=== PATIENT | female | born 1955 | race Caucasian/White ===

== ENCOUNTER → 2018-10-22 08:34 | Outpatient (CLI) | payer OTHER, SELFPAY ==
[2018-10-22 08:58] LABS: Appearance Urine UA CLEAR; Bilirubin Urine UA NEGATIVE (NEGATIVE); Color Urine UA YELLOW; Glucose Urine UA NEGATIVE (Negative); Ketones Urine UA NEGATIVE (NEGATIVE); Leukocyte Esterase Urine UA NEGATIVE (NEGATIVE); Nitrite Urine UA NEGATIVE (Negative); Occult Blood Urine UA TRACE-LYSED (Negative); Protein Urine UA NEGATIVE (Negative); Urobilinogen Urine UA 0.2 E.U./dL (0.2)
[2018-10-22 09:27] LABS: Add Manual Diff / Slide Review NO; Basophils Absolute Auto 100 /uL (0-100); Basophils Percent Auto 0.9 % (0-2); Eosinophils Absolute Auto 100 /uL (0-450); Eosinophils Percent Auto 2.4 % (2-4); Hematocrit 44.9 % (36-46); Hemoglobin 15.2 g/dL (12.0-16.0); Lymphocytes Absolute Auto 2200 /uL (1100-4500); Lymphocytes Percent Auto 37.3 % (25-40); Mean Corpuscular Hemoglobin 30.6 PG (26-34); Mean Corpuscular Volume 90.2 fL (80-100); Monocytes Absolute Auto 500 /uL (0-900); Monocytes Percent Auto 9.2 % (3-14); Neutrophils Absolute Auto 2900 /uL (1500-7000); Neutrophils Percent Auto 50.2 % (50-75); Platelet Count 231 X10^3/uL (150-400); Red Blood Cell Count 4.97 X10^6/uL (4.0-5.2); Red Cell Distribution Width 13.5 % (11.6-14.8); White Blood Cell Count 5.8 X10^3/uL (4.5-11.0)
[2018-10-22 09:45] LABS: Alanine Aminotransferase 16 IU/L (9-52); Albumin 4.3 g/dL (3.5-5.0); Albumin Globulin Ratio 1.4 (1.0-2.8); Alkaline Phosphatase 66 U/L (38-126); Aspartate Aminotransferase 23 IU/L (14-36); Bilirubin Total 0.6 mg/dL (0.2-1.3); Blood Urea Nitrogen 16 mg/dL (7-17); Calcium 9.2 mg/dL (8.4-10.2); Carbon Dioxide 31 mmol/L (22-32); Chloride 102 mmol/L (98-107); Cholesterol 258 mg/dL (140-199); Estimated Glomerular Filt Rate > 60.0 mL/min (>60); Glucose 140 mg/dL (80-110); HDL Cholesterol 53 mg/dL (40-60); HEMOLYSIS < 15 (0-50); LDL Cholesterol Calculated 169 mg/dL (<100); Potassium 4.3 mmol/L (3.4-5.1); Sodium 140 mmol/L (137-145); Total Protein 7.3 g/dL (6.3-8.2); Triglycerides 182 mg/dL (35-150)
[2018-10-25 08:55] LABS: Hepatitis A Antibody IgM NONREACTIVE (NONREACTIVE); Hepatitis B Core Antibody IgM NONREACTIVE (NONREACTIVE); Hepatitis B Surface Antigen NONREACTIVE (NONREACTIVE); Hepatitis C Antibody NONREACTIVE
== END ==
PROVIDERS: Visit Provider Family Medicine
DX: I10 Essential (primary) hypertension (principal); R73.9 Hyperglycemia, unspecified; Z13.220 Encounter for screening for lipoid disorders; Z00.00 Encounter for general adult medical examination without abnormal findings; Z86.19 Personal history of other infectious and parasitic diseases
CPT/HCPCS: 36415; 80053; 80061; 80074; 81003; 85025

== ENCOUNTER → 2018-10-27 15:12 | Outpatient (CLI) | payer OTHER, SELFPAY ==
[2018-10-27 15:30] LABS: Hemoglobin A1C% w Est Avg Glu 6.6 % (4.0-6.0)
== END ==
PROVIDERS: Visit Provider Family Medicine
DX: R73.9 Hyperglycemia, unspecified (principal)
CPT/HCPCS: 83036

== ENCOUNTER → 2018-11-01 10:59 | Outpatient (CLI) | payer OTHER, SELFPAY | PROVIDERS: PCP Family Medicine; Visit Provider Family Medicine ==

== ENCOUNTER → 2018-11-12 12:48 | Outpatient (CLI) | payer OTHER, SELFPAY | PROVIDERS: PCP Family Medicine; Visit Provider Family Medicine | DX: Z00.00 Encounter for general adult medical examination without abnormal findings (principal); Z12.11 Encounter for screening for malignant neoplasm of colon | CPT/HCPCS: 82274 ==

== ENCOUNTER → 2019-01-22 09:45 | Outpatient (CLI) | payer OTHER, SELFPAY ==
[2019-01-22 10:18] LABS: Hemoglobin A1C% w Est Avg Glu 7.1 % (4.0-6.0)
[2019-01-22 10:27] LABS: Alanine Aminotransferase 23 IU/L (<35); Albumin 4.4 g/dL (3.5-5.0); Albumin Globulin Ratio 1.6 (1.0-2.8); Alkaline Phosphatase 62 U/L (38-126); Aspartate Aminotransferase 23 IU/L (14-36); BUN Creatinine Ratio 23.8 (6-22); Bilirubin Total 0.6 mg/dL (0.2-1.3); Blood Urea Nitrogen 19 mg/dL (7-17); Calcium 9.3 mg/dL (8.4-10.2); Carbon Dioxide 28 mmol/L (22-32); Chloride 102 mmol/L (98-107); Cholesterol 283 mg/dL (140-199); Estimated Glomerular Filt Rate > 60.0 mL/min (>60); Globulin 2.7 g/dL (1.7-4.1); Glucose 143 mg/dL (80-110); HDL Cholesterol 57 mg/dL (40-60); HEMOLYSIS < 15 (0-50); LDL Cholesterol Calculated 200 mg/dL (<100); Potassium 4.6 mmol/L (3.4-5.1); Sodium 139 mmol/L (137-145); Total Protein 7.1 g/dL (6.3-8.2); Triglycerides 130 mg/dL (35-150)
== END ==
PROVIDERS: PCP Family Medicine; Visit Provider Family Medicine
DX: Z00.00 Encounter for general adult medical examination without abnormal findings (principal); E11.9 Type 2 diabetes mellitus without complications; E78.5 Hyperlipidemia, unspecified
CPT/HCPCS: 36415; 80053; 80061; 83036

== ENCOUNTER → 2019-02-18 12:55 | Outpatient (CLI) | payer OTHER, SELFPAY ==
--- NOTE | 2019-02-18 | DI.MG.S_ITS ---
BILATERAL DIGITAL SCREENING MAMMOGRAM 3D/2D WITH CAD: 02/18/2019 CLINICAL: Routine screening. Family history of breast cancer. Comparison is made to exams dated: 06/29/2017 mammogram, 11/22/2014 mammogram, and 02/28/2011 mammogram - [facility]. The tissue of both breasts is heterogeneously dense. This may lower the sensitivity of mammography. Current study was also evaluated with a Computer Aided Detection (CAD) system. No significant masses, calcifications, or other findings are seen in either breast. There has been no significant interval change. IMPRESSION: NEGATIVE There is no mammographic evidence of malignancy. A 1 year screening mammogram is recommended. This exam was interpreted at Station ID: [id number]. NOTE: For mammograms, a report in lay terms will be sent to the patient. Approximately 15% of breast malignancies will not be visualized mammographically. In the management of a palpable breast mass, a negative mammogram must not discourage biopsy of a clinically suspicious lesion. Electronically Signed By: Keyon hughes/julieth:02/18/2019 16:23:09 letter sent: Normal Exam ACR BI-RADS Category 1: Negative 3341F
== END ==
PROVIDERS: PCP Family Medicine; Visit Provider Family Medicine
DX: Z12.31 Encounter for screening mammogram for malignant neoplasm of breast (principal); Z80.3 Family history of malignant neoplasm of breast
CPT/HCPCS: 77063; 77067

== ENCOUNTER → 2019-05-20 13:28 | Outpatient (CLI) | payer OTHER, SELFPAY ==
--- NOTE | 2019-05-20 14:44 | DIET.PN ---
Diabetes Intake: Initial Assessment Assess: Ms. Daly is a 63 YOF referred for type 2 diabetes. New dx in Oct 2018. Not monitoring. She recently moved to the area. Has not been as active as she used to be. Likes kayaking, hiking, walking, gardening. Reports high amounts of starch and fruit intake. She is partially lactose intolerant. Eats large amounts of fish, pork, welch, beef. Labs: Per pt report: A1c: 7.1 Meds: na Wt: 179 Ht: 63? BMI: 31.7 DX: Altered nutrition related laboratory values related to impaired glucose metabolism, lack of previous exposure to nutrition information as evidenced by pt report, diagnosis of diabetes, previous diet high in refined carbohydrates. Intervention: 1. Completed intake assessment. Discussed barriers to care. 2. Discussed pathophysiology of diabetes. Reviewed A1c and its correlation to blood glucose numbers. Discussed recommended BG ranges. 3. Discussed importance of self-monitoring, how often, and when to check. Provided demonstration on use of glucometer. 4. Reviewed hyper/hypoglycemia and treatment. 5. Reviewed safe disposal of equipment (strip/lancets/insulin needles). 6. Created SMART goals for pt self-care and success. 7. Discussed program curriculum outline and class needs based on individual goals. Monitor/Evaluate: Anticipate excellent compliance. Pt will attend full DSME program. Basic Nutrition class scheduled for May 26.
== END ==
PROVIDERS: PCP Family Medicine; Referring Provider Family Medicine; Visit Provider Family Medicine
DX: E11.69 Type 2 diabetes mellitus with other specified complication (principal); E78.5 Hyperlipidemia, unspecified; E66.9 Obesity, unspecified; Z68.31 Body mass index [BMI] 31.0-31.9, adult; Z71.3 Dietary counseling and surveillance
CPT/HCPCS: G0108

== ENCOUNTER → 2019-05-27 10:15 | Outpatient (CLI) | payer OTHER, SELFPAY ==
--- NOTE | 2019-05-27 14:57 | DIET.PN ---
Diabetes: Healthy Eating 2 Intervention: Fats effects on glucose, weight, heart disease, cholesterol Sat Vs Unsat Protein- animal and plant based options Low, med, high fat meats Sugar substitutes Sodium Health claims Grocery shopping guidelines Eating away from home Alcohol Sick day guidelines
== END ==
PROVIDERS: PCP Family Medicine; Referring Provider Family Medicine; Visit Provider Family Medicine
DX: E11.9 Type 2 diabetes mellitus without complications (principal); Z71.3 Dietary counseling and surveillance
CPT/HCPCS: G0109

== ENCOUNTER → 2019-06-03 09:58 | Outpatient (CLI) | payer OTHER, SELFPAY ==
--- NOTE | 2019-06-03 11:42 | DIET.PN ---
Diabetes: Healthy Eating 1 Intervention: ? Discussed pathophysiology of diabetes and impact of nutrition/diet on blood sugar control.? Discussed fed versus non-fed state.?? ? Reviewed importance of Balance, Variety, and Moderation. ? Discussed the effect of carbohydrates/protein/fat on blood sugar control.? ? Stressed importance of consistent carbohydrate intake at each meal and provided instructions for recommended servings/portions of carbohydrates/protein per meal. Provided educational material. ? Reviewed carbohydrate counting and measuring carbohydrate content via serving sizes and reading nutrition labels.? Provided handouts.?? ? Discussed the difference between simple versus complex carbohydrates and the effect of fiber on blood sugar control.? Discussed various methods to increase fiber content in diet. ? Discussed the plate method for creating more carbohydrate conscious balanced meals. ? Stressed importance of meal timing and not going >4-5 hours between meals. Encouraged adding protein to evening snack to support glucose control overnight. ?Discussed importance of making dietary habits part of lifestyle change.
== END ==
PROVIDERS: PCP Family Medicine; Referring Provider Family Medicine; Visit Provider Family Medicine
DX: E11.9 Type 2 diabetes mellitus without complications (principal); Z71.3 Dietary counseling and surveillance
CPT/HCPCS: G0109

== ENCOUNTER → 2019-09-20 12:01 | Outpatient (CLI) | payer OTHER, SELFPAY ==
[2019-09-22 16:08] LABS: COVID19 Sendout Not Detected (Not Detected)
== END ==
PROVIDERS: PCP Family Medicine; Visit Provider Physician Assistant
DX: J06.9 Acute upper respiratory infection, unspecified (principal)
CPT/HCPCS: 87070; 87635

== ENCOUNTER → 2019-10-27 13:47 | Outpatient (CLI) | payer OTHER, SELFPAY ==
--- NOTE | 2019-10-27 16:30 | DIET.PN ---
Diabetes Exercise/Lifestyle change: 1. Importance of exercise 2. FITT (frequency, intensity, time, type) 3. Strength training tips and guidelines 4. Glucose monitoring/ranges before and after a. Carbohydrate needs based on glucose ranges and duration/intensity of exercise b. Rule of 15 5. Proper foot attire 6. Developing strategies for behavior change 7. SMART Goal Setting 8. Home exercise routine demonstration (as a class)
== END ==
PROVIDERS: PCP Family Medicine; Referring Provider Family Medicine; Visit Provider Family Medicine
DX: E11.9 Type 2 diabetes mellitus without complications (principal); Z71.3 Dietary counseling and surveillance
CPT/HCPCS: G0109

== ENCOUNTER → 2019-11-15 09:44 | Outpatient (CLI) | payer OTHER, SELFPAY ==
--- NOTE | 2019-11-15 12:16 | DIET.PN ---
Diabetes Physiology: Intervention 1. Diabetes physiology 2. Detecting and treatment of acute and chronic complications 3. Diagnosis of and difference in types of diabetes 4. Self-monitoring and pattern management a. Demonstrate glucometer and control testing b. Explain BG results and action to take when out of range. 5. Foot , eye, dental care 6. Medications a. Oral medication classification b. Injectable c. Insulin i. Injection protocol ii. Other delivery methods
== END ==
PROVIDERS: PCP Family Medicine; Referring Provider Family Medicine; Visit Provider Family Medicine
DX: E11.9 Type 2 diabetes mellitus without complications (principal)
CPT/HCPCS: G0109

== ENCOUNTER → 2019-11-17 09:17 | Outpatient (CLI) | payer OTHER, SELFPAY ==
[2019-11-17 10:35] LABS: Add Manual Diff / Slide Review NO; Basophils Absolute Auto 0 /uL (0-100); Basophils Percent Auto 0.6 % (0-2); Eosinophils Absolute Auto 100 /uL (0-450); Eosinophils Percent Auto 2.4 % (2-4); Hematocrit 43.4 % (36-46); Hemoglobin 14.9 g/dL (12.0-16.0); Lymphocytes Absolute Auto 2200 /uL (1100-4500); Lymphocytes Percent Auto 36.5 % (25-40); Mean Corpuscular HGB Conc 34.3 % (30-36); Mean Corpuscular Volume 90.2 fL (80-100); Monocytes Absolute Auto 500 /uL (0-900); Monocytes Percent Auto 8.1 % (3-14); Neutrophils Absolute Auto 3200 /uL (1500-7000); Neutrophils Percent Auto 52.4 % (50-75); Platelet Count 205 X10^3/uL (150-400); Red Blood Cell Count 4.81 X10^6/uL (4.0-5.2); Red Cell Distribution Width 13.4 % (11.6-14.8); White Blood Cell Count 6.1 X10^3/uL (4.5-11.0)
[2019-11-17 10:42] LABS: Hemoglobin A1C% w Est Avg Glu 7.3 % (4.0-6.0)
[2019-11-17 11:06] LABS: Alanine Aminotransferase 17 IU/L (<35); Albumin 4.1 g/dL (3.5-5.0); Albumin Globulin Ratio 1.6 (1.0-2.8); Alkaline Phosphatase 57 U/L (38-126); Aspartate Aminotransferase 19 IU/L (14-36); BUN Creatinine Ratio 18.9 (6-22); Bilirubin Total 0.5 mg/dL (0.2-1.3); Blood Urea Nitrogen 17 mg/dL (7-17); Calcium 9.2 mg/dL (8.4-10.2); Carbon Dioxide 28 mmol/L (22-32); Chloride 103 mmol/L (98-107); Cholesterol 234 mg/dL (140-199); Estimated Glomerular Filt Rate > 60.0 mL/min (>60); Globulin 2.6 g/dL (1.7-4.1); Glucose 137 mg/dL (80-110); HDL Cholesterol 57 mg/dL (40-60); HEMOLYSIS < 15 (0-50); LDL Cholesterol Calculated 142 mg/dL (<100); Potassium 4.8 mmol/L (3.4-5.1); Sodium 137 mmol/L (137-145); Total Protein 6.7 g/dL (6.3-8.2); Triglycerides 176 mg/dL (35-150)
[2019-11-17 11:21] LABS: Free T4, Direct Thyroxine 0.73 ng/dL (0.78-2.19)
[2019-11-17 11:34] LABS: Thyroid Stimulating Hormone 2.05 uIU/mL (0.47-4.68)
== END ==
PROVIDERS: PCP Family Medicine; Referring Provider Family Medicine; Visit Provider Family Medicine
DX: E78.5 Hyperlipidemia, unspecified (principal); F32.9 Major depressive disorder, single episode, unspecified; E11.9 Type 2 diabetes mellitus without complications
CPT/HCPCS: 36415; 80053; 80061; 83036; 84439; 84443; 84481; 85025

== ENCOUNTER → 2019-12-07 09:50 | Outpatient (CLI) | payer OTHER, SELFPAY ==
[2019-12-07 10:59] VITALS: BMI 32.1
--- NOTE | 2019-12-07 11:10 | DIET.PN ---
DIABETES Nutrition Initial Assessment:? ASSESS:?? Ms. Daly is 64 yof??referred for type 2 diabetes seen as part of DSME program. She recently started metformin XR and Atorvastatin with GI side effects. Reports constant heart burn and stomach cramping. Also complains of recent short term memory loss which she believes is a side effect of statin as she has had a hx of this in the past. She has been monitoring her FBG with consistent readings in the 130?s. Admits she has not been as diligent in monitoring her post-prandial readings. She has not been counting her carbohydrates, but rather has been trying to make better food choices. She has been under a lot of stress lately with many life changes including upcoming intermediate, Covid-19, changes in current employment. Admits to stress eating and lack of activity. ??? LABS: Per pt report:? A1c: 7.3 ? MEDS:?? metformin XR 500mg pm (titrating up) ? DIET: Per 24-hour recall:? Eating Out: never Changes in Appetite: no Nutrition Supplements: no ? Weight: 181lb Height: 63in BMI: ? 32 ? Exercise:? occasional NUTRITION DX 1. Altered Nutrition related labs related to impaired glucose metabolism, lack of previous exposure to accurate nutrition information as evidenced by pt report, dx of diabetes, previous diet high in refined carbohydrates.? INTERVENTION(s): 1. Reviewed pathophysiology of diabetes and impact of nutrition/diet on blood sugar control.? Discussed fed versus non-fed state.?? 2. Discussed the effect of carbohydrates/protein/fat on blood sugar control.? Stressed importance of consistent carbohydrate intake at each meal and provided instructions for recommended servings/portions of carbohydrates/protein per meal. Provided pt with educational material. 3. Reviewed carbohydrate counting and measuring carbohydrate content via serving sizes and reading nutrition labels.? Provided handouts.?? 4. Discussed the difference between simple versus complex carbohydrates and the effect of fiber on blood sugar control.? Discussed various methods to increase fiber content in diet. 5. Stressed importance of meal timing and not going >4-5 hours between meals. Encouraged adding protein to evening snack to support glucose control overnight. Patient agreeable. 6. Discussed healthy weight loss goals of 1-2lbs per week through diet and exercise.? Pt agreeable to walking at least 30 minutes daily. 7. Recommend monitoring fasting and alternating 2 hr PP mealtime glucose. MONITOR/EVALUATE: Anticipate good compliance.? Nutrition follow-up scheduled for
== END ==
PROVIDERS: PCP Family Medicine; Referring Provider Family Medicine; Visit Provider Family Medicine
DX: E11.9 Type 2 diabetes mellitus without complications (principal); Z71.3 Dietary counseling and surveillance; Z79.84 Long term (current) use of oral hypoglycemic drugs; E66.9 Obesity, unspecified; Z68.32 Body mass index [BMI] 32.0-32.9, adult
CPT/HCPCS: G0109

== ENCOUNTER → 2020-03-05 15:20 | Outpatient (CLI) | payer MEDICARE, OTHER, SELFPAY ==
[2020-03-05 17:10] LABS: Hemoglobin A1C% w Est Avg Glu 6.9 % (4.0-6.0)
[2020-03-05 17:24] LABS: Creatinine Urine Random 55.4 mg/dL
[2020-03-05 17:30] LABS: Alanine Aminotransferase 28 IU/L (<35); Albumin 4.3 g/dL (3.5-5.0); Albumin Globulin Ratio 1.3 (1.0-2.8); Alkaline Phosphatase 52 U/L (38-126); Aspartate Aminotransferase 26 IU/L (14-36); BUN Creatinine Ratio 22.5 (6-22); Bilirubin Total 0.3 mg/dL (0.2-1.3); Blood Urea Nitrogen 20 mg/dL (7-17); Calcium 9.3 mg/dL (8.4-10.2); Carbon Dioxide 29 mmol/L (22-32); Chloride 104 mmol/L (98-107); Estimated Glomerular Filt Rate > 60.0 mL/min (>60); Globulin 3.3 g/dL (1.7-4.1); Glucose 105 mg/dL (80-110); HEMOLYSIS < 15 (0-50); Potassium 4.3 mmol/L (3.4-5.1); Sodium 137 mmol/L (137-145); Total Protein 7.6 g/dL (6.3-8.2)
[2020-03-05 17:35] LABS: Microalbumin Urine Random < 0.6 mg/dL (0-1.6)
== END ==
PROVIDERS: PCP Registered Nurse; Referring Provider Registered Nurse; Visit Provider Registered Nurse
DX: E11.9 Type 2 diabetes mellitus without complications (principal)
CPT/HCPCS: 36415; 80053; 82043; 82570; 83036

== ENCOUNTER → 2020-07-05 09:40 | Outpatient (CLI) | payer MEDICARE, OTHER, SELFPAY ==
[2020-07-05 10:37] LABS: Hemoglobin A1C% w Est Avg Glu 6.6 % (4.0-6.0)
[2020-07-05 10:47] LABS: Alanine Aminotransferase 18 IU/L (<35); Albumin 4.3 g/dL (3.5-5.0); Albumin Globulin Ratio 1.4 (1.0-2.8); Alkaline Phosphatase 52 U/L (38-126); Aspartate Aminotransferase 26 IU/L (14-36); BUN Creatinine Ratio 22.4 (6-22); Bilirubin Total 0.3 mg/dL (0.2-1.3); Blood Urea Nitrogen 19 mg/dL (7-17); Calcium 9.3 mg/dL (8.4-10.2); Carbon Dioxide 26 mmol/L (22-32); Chloride 103 mmol/L (98-107); Cholesterol 260 mg/dL (140-199); Estimated Glomerular Filt Rate > 60.0 mL/min (>60); Glucose 142 mg/dL (80-110); HDL Cholesterol 51 mg/dL (40-60); HEMOLYSIS < 15 (0-50); LDL Cholesterol Calculated 186 mg/dL (<100); Potassium 4.5 mmol/L (3.4-5.1); Sodium 137 mmol/L (137-145); Total Protein 7.3 g/dL (6.3-8.2); Triglycerides 115 mg/dL (35-150)
[2020-07-05 12:09] LABS: Creatinine Urine Random 137.1 mg/dL
[2020-07-05 12:16] LABS: Microalbumi Creatinin Ratio Ur 4.3 ug/mg CR (<30); Microalbumin Urine Random 0.6 mg/dL (0-1.6)
== END ==
PROVIDERS: PCP Registered Nurse; Referring Provider Registered Nurse; Visit Provider Registered Nurse
DX: E11.9 Type 2 diabetes mellitus without complications (principal); I10 Essential (primary) hypertension; E78.2 Mixed hyperlipidemia
CPT/HCPCS: 36415; 80053; 80061; 82043; 82570; 83036

== ENCOUNTER → 2020-07-17 10:44 | Outpatient (CLI) | payer MEDICARE, OTHER, SELFPAY ==
--- NOTE | 2020-07-17 10:47 | DI.RAD.S_ITS ---
PROCEDURE: XR KNEE LT 3V INDICATIONS: left knee pain TECHNIQUE: 3 views of the knee were acquired. COMPARISON: None. FINDINGS: Bones: No fractures or dislocations. No suspicious bony lesions. There is mild medial compartment joint space narrowing, seen on the frontal view. No trauma found. Soft tissues: No joint effusion. No suspicious soft tissue calcifications. IMPRESSION: Mild osteoarthritis at the medial compartment of the left knee. No trauma found. Dictated by: Ming Mo M.D. on 07/17/2020 at 11:52 Approved by: Ming Mo M.D. on 07/17/2020 at 11:53
== END ==
PROVIDERS: PCP Registered Nurse; Referring Provider Registered Nurse; Visit Provider Registered Nurse
DX: M25.562 Pain in left knee (principal); M17.12 Unilateral primary osteoarthritis, left knee
CPT/HCPCS: 73562

== ENCOUNTER → 2020-10-04 10:49 | Outpatient (CLI) | payer MEDICARE, OTHER, SELFPAY ==
[2020-10-04 12:34] LABS: Alanine Aminotransferase 17 IU/L (<35); Albumin 4.2 g/dL (3.5-5.0); Albumin Globulin Ratio 1.3 (1.0-2.8); Alkaline Phosphatase 52 U/L (38-126); Aspartate Aminotransferase 25 IU/L (14-36); BUN Creatinine Ratio 23.4 (6-22); Bilirubin Total 0.3 mg/dL (0.2-1.3); Blood Urea Nitrogen 18 mg/dL (7-17); Calcium 9.8 mg/dL (8.4-10.2); Carbon Dioxide 28 mmol/L (22-32); Chloride 105 mmol/L (98-107); Estimated Glomerular Filt Rate > 60.0 mL/min (>60); Globulin 3.2 g/dL (1.7-4.1); Glucose 102 mg/dL (80-110); HEMOLYSIS < 15 (0-50); Potassium 4.6 mmol/L (3.4-5.1); Sodium 139 mmol/L (137-145); Total Protein 7.4 g/dL (6.3-8.2)
[2020-10-04 12:35] LABS: Hemoglobin A1C% w Est Avg Glu 6.7 % (4.0-6.0)
[2020-10-04 15:27] LABS: Creatinine Urine Random 63.1 mg/dL
[2020-10-04 15:44] LABS: Microalbumin Urine Random < 0.6 mg/dL (0-1.6)
== END ==
PROVIDERS: PCP Registered Nurse; Referring Provider Registered Nurse; Visit Provider Registered Nurse
DX: E11.9 Type 2 diabetes mellitus without complications (principal); I10 Essential (primary) hypertension
CPT/HCPCS: 36415; 80053; 82043; 82570; 83036

== ENCOUNTER → 2021-02-01 16:28 | Outpatient (CLI) | payer MEDICARE, OTHER, SELFPAY ==
--- NOTE | 2021-02-01 16:30 | DI.MG.S_ITS ---
BILATERAL DIGITAL SCREENING MAMMOGRAM 3D/2D WITH CAD: 02/01/2021 CLINICAL: Routine screening. Family history of breast cancer. Comparison is made to exams dated: 02/18/2019 mammogram - [facility], 06/29/2017 mammogram, and 11/22/2014 mammogram - [facility]. The tissue of both breasts is heterogeneously dense. This may lower the sensitivity of mammography. Current study was also evaluated with a Computer Aided Detection (CAD) system. No significant masses, calcifications, or other findings are seen in either breast. There has been no significant interval change. IMPRESSION: NEGATIVE There is no mammographic evidence of malignancy. A 1 year screening mammogram is recommended. This exam was interpreted at Station ID: [id number]. NOTE: For mammograms, a report in lay terms will be sent to the patient. Approximately 15% of breast malignancies will not be visualized mammographically. In the management of a palpable breast mass, a negative mammogram must not discourage biopsy of a clinically suspicious lesion. Electronically Signed By: Irina jansen/julieth:02/04/2021 09:00:48 letter sent: Normal Exam ACR BI-RADS Category 1: Negative 3341F
== END ==
PROVIDERS: PCP Registered Nurse; Referring Provider Registered Nurse; Visit Provider Registered Nurse
DX: Z12.31 Encounter for screening mammogram for malignant neoplasm of breast (principal); Z80.3 Family history of malignant neoplasm of breast
CPT/HCPCS: 77063; 77067

== ENCOUNTER → 2021-03-29 12:20 | Outpatient (CLI) | payer MEDICARE, OTHER, SELFPAY ==
[2021-03-29 13:54] LABS: Alanine Aminotransferase 23 IU/L (<35); Albumin 4.3 g/dL (3.5-5.0); Albumin Globulin Ratio 1.5 (1.0-2.8); Alkaline Phosphatase 56 U/L (38-126); Aspartate Aminotransferase 23 IU/L (14-36); BUN Creatinine Ratio 20.2 (6-22); Bilirubin Total 0.5 mg/dL (0.2-1.3); Blood Urea Nitrogen 17 mg/dL (7-17); Calcium 9.2 mg/dL (8.4-10.2); Carbon Dioxide 26 mmol/L (22-32); Chloride 104 mmol/L (98-107); Cholesterol 258 mg/dL (140-199); Estimated Glomerular Filt Rate > 60.0 mL/min (>60); Globulin 2.9 g/dL (1.7-4.1); Glucose 129 mg/dL (80-110); HDL Cholesterol 58 mg/dL (40-60); HEMOLYSIS < 15 (0-50); LDL Cholesterol Calculated 168 mg/dL (<100); Potassium 4.6 mmol/L (3.4-5.1); Sodium 138 mmol/L (137-145); Total Protein 7.2 g/dL (6.3-8.2); Triglycerides 159 mg/dL (35-150)
[2021-03-29 13:56] LABS: Hemoglobin A1C% w Est Avg Glu 7.2 % (4.0-6.0)
[2021-03-29 15:44] LABS: Creatinine Urine Random 196.2 mg/dL
== END ==
PROVIDERS: PCP Registered Nurse; Referring Provider Registered Nurse; Visit Provider Registered Nurse
DX: E11.9 Type 2 diabetes mellitus without complications (principal); E78.5 Hyperlipidemia, unspecified; I10 Essential (primary) hypertension
CPT/HCPCS: 36415; 80053; 80061; 82043; 82570; 83036

== ENCOUNTER 2021-04-26 11:03 | Emergency (ER) | payer MEDICARE, OTHER, SELFPAY ==
[2021-04-26 11:06] VITALS: BP 211/107; PULSE 71; RESP 15; TEMP 36.4; O2SAT 100; BMI 34.4
--- NOTE | 2021-04-26 11:15 | DI.US.S_ITS ---
PROCEDURE: US PERIPH VENOUS LOW EXTREM RT INDICATIONS: PAIN AND SWELLING TECHNIQUE: Real-time imaging, as well as color and pulse Doppler interrogation, were performed of the lower extremity deep veins from the inguinal ligament to the popliteal fossa. COMPARISON: None. FINDINGS: The common femoral, femoral and popliteal veins are normally compressible, and free of intraluminal thrombus. Color and pulse Doppler demonstrate normal phasic intraluminal flow. There is normal augmentation response to distal compression maneuver. IMPRESSION: Negative for deep venous thrombosis of the right lower extremity. Dictated by: Keyon Guevara M.D. on 04/26/2021 at 12:39 Approved by: Keyon Guevara M.D. on 04/26/2021 at 12:39
--- NOTE | 2021-04-26 13:08 | ED.EXTPRO ---
HPI - Extremity Problem General Chief complaint: Extremity Problem,Nontraumatic Stated complaint: Poss blood clot in right leg Time Seen by Provider: 04/26/21 12:40 Source: patient Mode of arrival: Ambulatory History of Present Illness HPI Narrative: The patient was sitting at work for an extended apparent of time 2 days ago. She developed edema to the right lower extremity, extending to the right medial calf. Edema has improved. She has no numbness or weakness to the right leg. She denies chest pain, palpitations or dyspnea. She has no hemoptysis. She has no history of DVT. She has a prior history of right Fountain cyst, apparently successfully treated with collagen injections. She has occasional discomfort with the right knee. There has been no recent injury associated with the right leg issues noted above. She is ambulatory without difficulty. There is no erythema or warmth to the right knee. She has no fever. There is no numbness or weakness to the lower extremities. Related Data Home Medications Medication Instructions Recorded Confirmed albuterol sulfate 90 mcg/actuation 2 inhalation INHALATION Q6H PRN 09/20/19 04/22/21 breath activated powder inhaler Previous Rx's Medication Instructions Recorded Freestyle Lite Glucometer #1 ea 03/17/20 Freestyle lite lancets #1 ea 12/14/20 Freestyle lite test strips #1 ea 12/14/20 metoprolol succinate 25 mg 25 mg PO DAILY #30 tab 02/25/21 tablet,extended release 24 hr losartan 50 mg tablet 50 mg PO BID #60 tab 03/27/21 hydroxyzine HCl 10 mg tablet 10 mg PO BEDTIME PRN #30 tab 04/22/21 metformin 1,000 mg tablet,extended 1,000 mg PO BID #180 tab 04/22/21 release 24hr Allergies Allergy/AdvReac Type Severity Reaction Status Date / Time amlodipine Allergy Intermediate forgetfulln Verified 04/26/21 11:06 ess atorvastatin Allergy Intermediate memory loss Verified 04/26/21 11:06 latex Allergy Intermediate rash Verified 04/26/21 11:06 Opioids - Morphine Analogues Allergy Verified 04/26/21 11:06 Review of Systems Review of Systems ROS Unobtainable: All systems reviewed & are unremarkable except as noted in HPI and below Patient History Medical History Abnormal Pap smear of cervix (~2015) Anxiety Borderline diabetes (~2011) Carpal tunnel syndrome Changes in vision Chicken pox (~1961) Foot pain Fractures Hearing loss (~1996) Hemorrhoid Hepatitis B (~1974) Herpes (~1985) History of recurrent ear infection (~1953) History of urinary incontinence Hyperlipidemia Hypertension (~1989) Irregular menstrual cycle Kidney stones (~2008) Left knee pain Measles (~1959) Meniere's disease Osteoarthritis (~2008) Ovarian cyst Painful menstrual periods Plantar warts (~1963) Post traumatic stress disorder (PTSD) (~1982) Recurrent sinusitis Rubella (~1953) Seasonal allergies Shoulder pain Tinnitus (~1996) Transient ischemic attack (~2007) URI (upper respiratory infection) Uterine cancer (~2015) Vertigo (~1982) Vision disorder Surgical History Anesthesia History of appendectomy (~1967) History of section History of hysterectomy (~2015) History of tonsillectomy (~1969) Family History Father History of heart disease Hyperlipidemia Hypertension Stroke Mother Diabetes mellitus History of heart disease Hypertension Hyperlipidemia Stroke Brother History of heart disease Hyperlipidemia Hypertension Brother Pacemaker Bipolar disorder History of heart disease Hyperlipidemia Hypertension Mental health problem Grandfather Stroke Grandmother Stroke Grandfather Stroke Grandmother History of heart disease Social History Smoking Status: Never smoker alcohol intake: current eating out: rarely or never Type(s) of exercise: walking, advised to exercise at least 150 min/week (moderate intensity aerobic), advised to perform resistance training at least 2x/week and additional Smoking Status: Never smoker alcohol intake frequency: holidays/special occasions only Substance Use Type: does not use Exam Initial Vital Signs Initial Vital Signs: Vital Signs Temperature 97.5 F L 04/26/21 11:06 Pulse Rate 71 04/26/21 11:06 Respiratory Rate 15 04/26/21 11:06 Blood Pressure 211/107 H 04/26/21 11:06 Pulse Oximetry 100 04/26/21 11:06 Const General: cooperative, healthy appearing and comfortable [facility] Head: normocephalic and atraumatic Cardio Rate: regular rate Rhythm: regular rhythm Heart Sounds: S1 normal, S2 normal, no click and no murmurs Skin General: no rashes or lesions noted Neuro General: patient alert, patient awake and no focal motor deficits Other: Right leg motor and sensory exam is normal. Extrem Other: 1+ right lower extremity edema. Normal right dorsalis pedis pulse. No calf tenderness. Range of motion the right knee is normal. No laxity. Minimal edema. No erythema. Course Course Course Narrative: I believe the patient may have developed edema some mild associated with position 2 days ago. She has a history of Fountain's cyst, Fountain cyst was not identified on the right leg ultrasound. However the the edema is decreased. There is no evidence of DVT. She is advised to walk and stretch. If she has ongoing symptoms she should be seen again. Orders Ordered: ED Orders 04/26/21 11:15 US perip venous low extrem rt Stat Vital Signs Vital signs: Vital Signs - 8 hr 04/26/21 11:06 04/26/21 13:30 Temperature 97.5 F L Pulse Rate 71 60 Respiratory Rate 15 Blood Pressure 211/107 H 170/78 H Pulse Oximetry 100 95 MDM - Extremity (Nontraumatic) Imaging Data Right leg ultrasound: Radiologist's Impression: No evidence of DVT Discharge Plan Departure Patient Disposition: Home Clinical Impression: Edema of right lower extremity Instructions: Edema Activity Restrictions/Additional Instructions: Walk and stretch. There is no evidence of DVT. If you have ongoing pain and swelling the right leg you should be re-evaluated within 1-2 weeks. If you develop chest pain or difficulty breathing you should be evaluated right away. Prescriptions: No Action albuterol sulfate 90 mcg/actuation aerosol powdr breath activated 2 inhalation INHALATION Q6H PRN0RF (DME) Freestyle Lite Glucometer See Rx Instructions .Route .MEDSUPPLY Qty: 1 0RF Rx Instructions: Test blood sugar twice a day. (DME) Freestyle lite lancets See Rx Instructions .Route .MEDSUPPLY Qty: 1 3RF Rx Instructions: Test blood sugar twice a day. (DME) Freestyle lite test strips See Rx Instructions .Route .MEDSUPPLY Qty: 1 3RF Rx Instructions: Test blood sugar twice a day. 1 box of 50 or 100, 100 if insurance covers amount. Thank you! metoprolol succinate 25 mg tablet extended release 24 hr 25 mg PO DAILY Qty: 30 5RF losartan 50 mg tablet 50 mg PO BID Qty: 60 2RF hydroxyzine HCl 10 mg tablet 10 mg PO BEDTIME PRN (Reason: anxiety, insomnia) Qty: 30 3RF metformin 1,000 mg tablet extended release 24hr 1,000 mg PO BID Qty: 180 0RF Referrals: Jenny Payton ARNP [Primary Care Provider] -
[2021-04-26 13:30] VITALS: BP 170/78; PULSE 60; O2SAT 95
== END 2021-04-26 13:30 | disposition home or self-care (01) ==
PROVIDERS: Emergency Provider Emergency Medicine; PCP Registered Nurse
DX: R60.0 Localized edema (principal)
CPT/HCPCS: 93971; 99281; 99283

== ENCOUNTER → 2021-05-15 10:55 | Outpatient (CLI) | payer MEDICARE, OTHER, SELFPAY ==
--- NOTE | 2021-05-16 08:57 | DIAB.INIT ---
Initial Diabetes Education Assessment Name: Diamante Daly ([place]) Date: 05/15/21 Time: 1105a-12p Dx: Type II Diabetes Provider: Ilsa Rose Preferred Learning Style: Watching, hands-on/doing Esperanza presents today for initial visit regarding T2DM. States she has had DM for 2 years. Completed a few visits with last in service educator, but would like more information and to complete entire program. Reports significant FH of heart attack, stroke, and HLD. Has allergy to statin, elevated cholesterol, and diet recall indicates some high saturated fat intake. Main sat fat foods include, butter, coconut yogurt, cheese. Avoids most dairy due to stomach upset. Enjoys baking. Wants to lose weight. Endorses joint pain. Financial concerns with single, fixed income. Budgets $300 per month for groceries. Anthropometrics: Ht: 5'2.5 Wt: 180-190# Weight history: Endorses 20# weight gain over the last two years attributed to covid lifestyle changes, ie staying home, inc kcals, inc depression and isolation. Looking for a therapist. Physical Activity: Hiking challenges, kyaks, gardens Self-Monitoring Blood Glucose: only checks FBG and all in goal per ADA 80-130. Aims for <120 mg/dL. States sometimes she feels shaky but is not sure if this is r/t to BG. Not taking any DM meds that usually cause hypo. Date Pre Post Pre Post Pre Post HS 05/06 113 05/07 115 05/08 110 05/09 107 05/10 106 05/14 116 05/15 104 Diabetes Medications: Metformin 1000 mg ER BID Pertinent Labs: Hx of hgA1c: 06/2020: 6.6% 09/2020: 6.7% 03/2021: 7.2% Lipids 03/2021: cholesterol: 258 H T H LDL: 168 H HDL: 58 Past Medical History: (Last Reviewed 04/26/21 @ 13:13 by Anil Truong MD) Abnormal Pap smear of cervix (~2015) Anxiety Borderline diabetes (~2011) Carpal tunnel syndrome Changes in vision Chicken pox (~1961) Foot pain Fractures Hearing loss (~1996) Left ear Hemorrhoid Hepatitis B (~1974) Herpes (~1985) History of appendectomy (~1967) History of section x2, 1985 and 1986 History of recurrent ear infection (~1953) History of tonsillectomy (~1969) History of urinary incontinence Hyperlipidemia Hypertension (~1989) Irregular menstrual cycle Kidney stones (~2008) Left knee pain Measles (~1959) Meniere's disease Osteoarthritis (~2008) Ovarian cyst Painful menstrual periods Plantar warts (~1963) Post traumatic stress disorder (PTSD) (~1982) Recurrent sinusitis Rubella (~1953) Seasonal allergies Shoulder pain Tinnitus (~1996) Transient ischemic attack (~2007) URI (upper respiratory infection) Uterine cancer (~2015) Vertigo (~1982) Vision disorder Glasses Intervention: This participant was very receptive. Provided appropriate educational handouts. Discussed the following topics: Completed intake assessment. Discussed barriers to care. HgA1c and her lab trends Self-monitoring, how often, and when to check. Suggested checking at different times to evaluate meals Plate Method and spreading out carbohydrates for better blood glucose management Heart health: fats and fiber Role of physical activity Mental health and role in DM Created SMART goals for patient self-care and success. Goals: Check food labels for saturated fats (10g per day or less) Check 1-2 hr pc BG and FBG alternating Check BG if feeling shaky Follow-up: FADUMO SOLIS follow-up in 1 week for 1 of 3 DSME class series. She plans to bring BG for review during class. Will see her 1:1 in 4 weeks after class series. Elena Ludwig RDN, [facility] Certified Diabetes Care and Lodging House Keeper P: [phone] Thank you for this referral
== END ==
PROVIDERS: PCP Registered Nurse; Referring Provider Registered Nurse; Visit Provider Registered Nurse
DX: E11.9 Type 2 diabetes mellitus without complications (principal); E78.5 Hyperlipidemia, unspecified; Z79.84 Long term (current) use of oral hypoglycemic drugs; Z71.3 Dietary counseling and surveillance
CPT/HCPCS: G0108

== ENCOUNTER → 2021-05-21 09:29 | Outpatient (CLI) | payer MEDICARE, OTHER, SELFPAY ==
--- NOTE | 2021-05-23 12:58 | DIAB.FU ---
Diabetes Education Class Series: Diabetes and Nutrition Name: Diamante Daly ([place]) Date: Time: Dx: Type II Diabetes Time: 890a-8665p Esperanza reports she has been working on expanding her garden vegetables. States she has been working on attaining the 52 challenge hike this year. She is currently on hike number 8. Endorses avoiding sugar alcohols due to SE she experiences. Does not normally count carbohydrates for meals, but she counts kcals instead. Class topics covered: ? Debunk nutrition myths and discuss how to sustain healthy eating long-term through moderation and variety ? Define macronutrients and determine their impact on blood sugars ? Discuss macronutrient pairing, Plate Method, and carb counting ? Review general recommendations for carbohydrates ? Practice label reading ? Discuss the role of fiber in diabetes and provide examples of sources ? Review heart health nutrition: fats, fiber, and sodium ? Determine recommendations for grocery shopping and eating out ? Discuss alcohol recommendations ? Review the role of substitute sugars in diabetes management ? Set SMART goals Goal Set: Start counting carbs for meals for the next month. Follow-up: Diabetes Physiology and Medication Class in one week Elena Ludwig RDN, [facility] Registered Dietitian, Certified Diabetes Care and Furnace Operator And Tender [phone] [email or web address]
== END ==
PROVIDERS: PCP Registered Nurse; Referring Provider Registered Nurse; Visit Provider Registered Nurse
DX: E11.9 Type 2 diabetes mellitus without complications (principal)
CPT/HCPCS: G0109

== ENCOUNTER → 2021-05-28 09:15 | Outpatient (CLI) | payer MEDICARE, OTHER, SELFPAY ==
--- NOTE | 2021-05-30 15:26 | DIAB.FU ---
Diabetes Education Class Series: Diabetes Physiology and Medications Name: Diamante Daly ([place]) Date: 05/28/21 Time: 930-12:30 Esperanza reports she has cont to aim for her hiking goals, however is having some barrier with a swollen knee. Has decided to contact her provider regarding this. overall, in class she participated well and had many pertinent questions and insights. Class topics covered: ? Diabetes pathophysiology ? Discuss different types of diabetes ? Review criteria for diagnosing diabetes ? Review HgA1c measurement and associated blood sugars ? Review blood sugar monitoring safety, technique, and goals ? Discuss ways to reduce complications associated with diabetes, includes microvascular and macrovascular complications ? Review diabetes medications types, action, and side effects ? Health care visits recommended for people with T2DM ? Immunization recommended for people with T2DM ? SMART goals review Follow-up: Diabetes Lifestyle and Ongoing Support Class next week Elena Ludwig RDN, [facility] Registered Dietitian, Certified Diabetes Care and Rig Site Engineer [phone] [email or web address]
== END ==
PROVIDERS: PCP Registered Nurse; Referring Provider Registered Nurse; Visit Provider Registered Nurse
DX: E11.9 Type 2 diabetes mellitus without complications (principal)
CPT/HCPCS: G0109

== ENCOUNTER → 2021-06-04 09:26 | Outpatient (CLI) | payer MEDICARE, OTHER, SELFPAY ==
--- NOTE | 2021-06-07 17:43 | DIAB.FU ---
Diabetes Education Class Series: Diabetes Lifestyle Change and Ongoing Support Name: Diamante Daly (Esperanza) Date: 06/04/21 Time: 930-1140 Esperanza reports she has decreased saturated fat intake since taking nutrition class. Also working on reducing carb intake. reports she experiences depression and is struggling to find a counselor that will take her insurance. Does not want to tx depression with medications. Reports some knee swelling with hiking that will sometimes eliminate exercise for her for two days. Class topics covered: ? Discuss the difference between physical activity and exercise ? Determine physical activity benefits and impact on diabetes ? Review physical activity recommendations and safety ? Discuss emergency preparedness ? Discuss diabetes and emotions (diabetes burnout/distress) ? Review and practice stress management techniques ? Review support groups and community resources ? Discuss the role of family support in diabetes care ? What is going well? Challenges of diabetes? ? Set SMART goals Goal Set: Try a different exercise on days when feeling LE pain Follow-up: 1:1 visit follow-up 2-4 weeks Elena Ludwig RDN, [facility] Registered Dietitian, Certified Diabetes Care and Organizational Research Consultant [phone] [email or web address]
== END ==
PROVIDERS: PCP Family Medicine; Referring Provider Registered Nurse; Visit Provider Registered Nurse
DX: E11.9 Type 2 diabetes mellitus without complications (principal)
CPT/HCPCS: G0109

== ENCOUNTER → 2021-06-13 10:48 | Outpatient (CLI) | payer MEDICARE, OTHER, SELFPAY ==
--- NOTE | 2021-06-21 16:20 | DIAB.MNT ---
Initial Diabetes Medical Nutrition Therapy Assessment Name: Diamante Daly (Esperanza) Date: 06/13/21 Time: 11a-12p Dx: Type II Diabetes Esperanza presents today for follow-up regarding T2DM. She has completed the 3 class DSME series. Continues to take Metformin 500mg in morning and 1000mg in evening. Esperanza has personal hx of HLD and allergy to statins. Also endorses extensive cardiac family hx. As a result of education, she has cut out butter, which she usually loves, reduced cheese intake, choosing leaning cheeses, trying 1 tsp rodriguez on bread as a sub, and bought unsweetened almond yogurt (does not like as much as coconut). Despite decreasing sat fat, she c/o some heartburn at night. Going to daughter?s house in June--they eat a lot of delivery food per report. Also has granddaughter there with h/o disordered eating. States she wants to set a good example for her family and be mindful of body image. Has not set up a therapist. States she may wait since things are going well, but we did discuss perhaps having a therapist set for when/if she needs them in the future. Opposed to depression meds, so therapy may be her best option at this time. Has not seen a dentist in over 6 months. Diet recall: 830a: toast and egg +/-fruit with oatmilk x 1/2c latte 1230p: tuna sandwich with veg and fruit 330p; dark nae chips handful with nuts ; triscuits and cheese 630p: 3/4c soup with stuffed mushroom ; meatloaf with veg 9p: crackers and cheese or nuts Bed at 11pm or later Anthropometrics: Ht: 62.5 Wt: no new wt Weight history: last reported 189# Physical Activity: Stopped hiking due to knee injury. Has been gardening and plans to start kayaking. Self-Monitoring Blood Glucose: All readings in goal range per ADA guidelines. Has h/o some low BG s/s. This has improved since reducing morning dose of Metformin. Usually feels shaky and has documented BG of 58, 68, and 70. Few after meal readings available over the last month, but all in goal, ranging from 100-160mg/dL. Date Pre Post Pre Post Pre Post HS 06/07 110 3/19 122 06/09 124 06/10 113 06/11 102 06/12 122 100 06/13 109 90 Diabetes Medications: 1500mg Metformin (500 in am and 1000 in pm) Pertinent Labs: Hx of hgA1c: 06/2020: 6.6% 09/2020: 6.7% 03/2021: 7.2% Lipids 03/2021: cholesterol: 258 H T H LDL: 168 H HDL: 58 Past Medical History: (Last Reviewed 06/18/21 @ 12:15 by JAMEEL Claros) Abnormal Pap smear of cervix (~2015) Anxiety Borderline diabetes (~2011) Carpal tunnel syndrome Changes in vision Chicken pox (~1961) Foot pain Fractures Hearing loss (~1996) Left ear Hemorrhoid Hepatitis B (~1974) Herpes (~1985) History of appendectomy (~1967) History of section x2, 1985 and 1986 History of recurrent ear infection (~1953) History of tonsillectomy (~1969) History of urinary incontinence Hyperlipidemia Hypertension (~1989) Irregular menstrual cycle Kidney stones (~2008) Left knee pain Measles (~1959) Meniere's disease Osteoarthritis (~2008) Ovarian cyst Painful menstrual periods Plantar warts (~1963) Post traumatic stress disorder (PTSD) (~1982) Recurrent sinusitis Rubella (~1953) Seasonal allergies Shoulder pain Tinnitus (~1996) Transient ischemic attack (~2007) URI (upper respiratory infection) Uterine cancer (~2015) Vertigo (~1982) Vision disorder Glasses Nutrition Rx: Carbohydrates: Meal:30-45g Snack: 15-30g Nutrition Diagnosis: - Physical inactivity r/t recent knee injury inhibiting hiking goals aeb pt report Intervention: This participant was very receptive. Provided appropriate educational handouts. Discussed the following topics: Completed intake assessment. Discussed barriers to care. Nutrition for heart health, DM, and heartburn Reviewed culprits of heartburn: caffeine, ETOH, fat, overly full stomach. Encouraged her to discuss with provider if cont. Reviewed SMBG Discussed some strategies for when she stays with her daughter's family Discussed some physical activity options with knee injury/pain Reviewed DM care, including seeing dentist Discussed her concerns around mental health and staying being proactive Created SMART goals for patient self-care and success. Goals: Check food labels for saturated fats (10g per day or less)- met Check 1-2 hr pc BG and FBG alternating - met Check BG if feeling shaky- met chat with PCP about heartburn if cont- new Consider setting up therapist resource for future prn- new Check into dentist- new Follow-up: FADUMO SOLIS follow-up in prn. Esperanza would like to check in again in a few months. Will schedule a f/u in August. She seems to be doing very well with Dm mgmgnt. will review future labs to see how lifestyle changes has impacted HgA1c and lipids. Elena Ludwig RDN, [facility] Certified Diabetes Care and Emergency Crew Supervisor P: [phone] Thank you for this referral
== END ==
PROVIDERS: PCP Family Medicine; Referring Provider Registered Nurse; Visit Provider Registered Nurse
DX: E11.9 Type 2 diabetes mellitus without complications (principal); Z79.84 Long term (current) use of oral hypoglycemic drugs; Z71.3 Dietary counseling and surveillance
CPT/HCPCS: 97802

== ENCOUNTER → 2021-06-18 12:13 | Outpatient (CLI) | payer MEDICARE, OTHER, SELFPAY ==
--- NOTE | 2021-06-18 12:16 | DI.RAD.S_ITS ---
PROCEDURE: XR KNEE RT 3V INDICATIONS: eval R knee pain and swelling TECHNIQUE: 3 views of the knee were acquired. COMPARISON: [facility], CR, XR KNEE LT 3V, 07/17/2020, 10:51. FINDINGS: Bones: No fractures or dislocations. There is mild joint space narrowing in the medial compartment with mild osteophytosis. Mild osteophytosis and joint space narrowing are also demonstrated in the patellofemoral compartment. No suspicious bony lesions. Soft tissues: There is a small joint effusion. No suspicious soft tissue calcifications. IMPRESSION: 1. No fracture or dislocation. 2. Mild osteoarthritic changes in the medial and patellofemoral compartments. Dictated by: Mike Gant M.D. on 06/18/2021 at 16:10 Approved by: Mike Gant M.D. on 06/18/2021 at 16:11
== END ==
PROVIDERS: PCP Family Medicine; Referring Provider Registered Nurse Diabetes Educator; Visit Provider Registered Nurse Diabetes Educator
DX: M25.561 Pain in right knee (principal); I83.90 Asymptomatic varicose veins of unspecified lower extremity; M79.89 Other specified soft tissue disorders
CPT/HCPCS: 73562

== ENCOUNTER → 2021-07-04 09:59 | Outpatient (CLI) | payer MEDICARE, OTHER, SELFPAY ==
[2021-07-04 12:26] LABS: Hemoglobin A1C% w Est Avg Glu 6.7 % (4.0-6.0)
[2021-07-04 13:18] LABS: Alanine Aminotransferase 14 IU/L (<35); Albumin 4.3 g/dL (3.5-5.0); Albumin Globulin Ratio 1.5 (1.0-2.8); Alkaline Phosphatase 54 U/L (38-126); Aspartate Aminotransferase 20 IU/L (14-36); BUN Creatinine Ratio 23.7 (6-22); Bilirubin Total 0.4 mg/dL (0.2-1.3); Blood Urea Nitrogen 23 mg/dL (7-17); Calcium 8.9 mg/dL (8.4-10.2); Carbon Dioxide 29 mmol/L (22-32); Chloride 103 mmol/L (98-107); Cholesterol 253 mg/dL (140-199); Estimated Glomerular Filt Rate > 60 mL/min (>60); Globulin 2.8 g/dL (1.7-4.1); Glucose 121 mg/dL (80-110); HDL Cholesterol 52 mg/dL (40-60); HEMOLYSIS < 15 (0-50); LDL Cholesterol Calculated 172 mg/dL (<100); Potassium 4.5 mmol/L (3.4-5.1); Sodium 140 mmol/L (137-145); Total Protein 7.1 g/dL (6.3-8.2); Triglycerides 145 mg/dL (35-150)
[2021-07-04 14:59] LABS: Creatinine Urine Random 153.2 mg/dL
[2021-07-04 15:07] LABS: Microalbumi Creatinin Ratio Ur 3.9 ug/mg CR (<30); Microalbumin Urine Random 0.6 mg/dL (0-1.6)
== END ==
PROVIDERS: PCP Family Medicine; Referring Provider Registered Nurse; Visit Provider Registered Nurse
DX: E11.9 Type 2 diabetes mellitus without complications (principal); E78.2 Mixed hyperlipidemia; F32.9 Major depressive disorder, single episode, unspecified; I10 Essential (primary) hypertension
CPT/HCPCS: 36415; 80053; 80061; 82043; 82570; 83036

== ENCOUNTER → 2021-10-24 10:54 | Outpatient (CLI) | payer MEDICARE, OTHER, SELFPAY ==
--- NOTE | 2021-10-24 17:15 | DIAB.MNTFU ---
Follow-up Diabetes Medical Nutrition Therapy Assessment Name: Diamante Daly (Esperanza) Date: 10/24/21 Time: [id number] Dx: Type II Diabetes Esperanza presents for T2Dm follow-up. Reports some food insecurity concerns. Housing her son and [id number]-[id number] from [place]. Though her son is looking for work, she is having to support the three of them on her fixed income. Reports utilization of her garden for fresh veggies, but sometimes protein is difficult to budget in. Has not looked for a therapist. States she is more focused on family challenges with her son and DIL's needs and daughter's newly diagnosed child with schizophrenia. Reports focusing on staying hydrated. Heartburn is much improved with hydration and taking meds with food per report. Some higher carb meals reported. Denies hypoglycemia with reduced Metformin. Diet Recall: B: 2 toast, 1 tsp marmalade, eggs, 1 fruit L: thin bread with sandwich, ham, 2 servings of chips sometimes sn: 8 sm triscuits with cheese D: protein with veggies pasta x 1.5c or potatoes x 1-1.5c sn: crackers with meds Beverages: seltzer x 12-24oz and water x 32oz , tea, coffee with oatmilk Anthropometrics: Ht: 62.5 Wt: 182.8# today Weight history: Last wt reported and PCP visit 189# Physical Activity: hiking 2x per week, kayaking more often, gardening Self-Monitoring Blood Glucose: Recent FB, 125, 106, 97, 107, 103, 109. All in goal. No pc readings for review. Diabetes Medications: 1500mg Metformin (500 in am and 1000 in pm) Pertinent Labs: Cont elevated lipids, though improved TG. Has allergy to statin and extensive FH of HLD and cardiac hx. Improved hgA1c. Hx of hgA1c: 06/2020: 6.6% 09/2020: 6.7% 03/2021: 7.2% 06/2021: 6.7% Lipids 06/2021: cholesterol: 253 H T LDL: 172 H HDL: 52 Past Medical History: (Last Reviewed 06/18/21 @ 12:15 by JAMEEL Claros) Abnormal Pap smear of cervix (~2015) Anxiety Borderline diabetes (~2011) Carpal tunnel syndrome Changes in vision Chicken pox (~1961) Foot pain Fractures Hearing loss (~1996) Left ear Hemorrhoid Hepatitis B (~1974) Herpes (~1985) History of recurrent ear infection (~1953) History of urinary incontinence Hyperlipidemia Hypertension (~1989) Irregular menstrual cycle Kidney stones (~2008) Left knee pain Measles (~1959) Meniere's disease Osteoarthritis (~2008) Ovarian cyst Painful menstrual periods Plantar warts (~1963) Post traumatic stress disorder (PTSD) (~1982) Recurrent sinusitis Rubella (~1953) Seasonal allergies Shoulder pain Tinnitus (~1996) Transient ischemic attack (~2007) URI (upper respiratory infection) Uterine cancer (~2015) Vertigo (~1982) Vision disorder Glasses Nutrition Rx: Carbohydrates: Meal:30-45g Snack: 15-30g Nutrition Diagnosis: - Physical inactivity r/t recent knee injury inhibiting hiking goals aeb pt report- improved - Excessive CHO intake r/t change in cooking with family living with her aeb pt report and diet recall Intervention: This participant was very receptive. Provided appropriate educational handouts. Discussed the following topics: Blood sugar review and trends. Potential for some pc readings with higher carb meals Lab review Food insecurity resources, ie indra knox Physical activity plan and progress Mental health and impact on her health and ability to support family Created SMART goals for patient self-care and success. Goals: chat with PCP about heartburn if cont- met Consider setting up therapist resource for future prn- not met Check into dentist- not met (financial concerns) Try [employer]- new Restart knee PT exercises safely- new check a few pc BG- new Follow-up: FAUDMO SOLIS follow-up prn. Encouraged her to check-in or call with questions or follow-up needs prn. She agreed. Elena Ludwig RDN, IRMA Certified Diabetes Care and Documentation Clerk P: [phone] Thank you for this referral
== END ==
PROVIDERS: PCP Pediatrics; Referring Provider Registered Nurse; Visit Provider Registered Nurse
DX: E11.9 Type 2 diabetes mellitus without complications (principal); Z71.3 Dietary counseling and surveillance; Z79.84 Long term (current) use of oral hypoglycemic drugs
CPT/HCPCS: 97803

== ENCOUNTER → 2022-01-31 08:45 | Outpatient (CLI) | payer MEDICARE, OTHER, SELFPAY ==
[2022-01-31 11:02] LABS: Creatinine Urine Random 89.8 mg/dL
[2022-01-31 11:10] LABS: Microalbumi Creatinin Ratio Ur 6.6 ug/mg CR (<30); Microalbumin Urine Random 0.6 mg/dL (0-1.6)
[2022-01-31 11:23] LABS: Add Manual Diff / Slide Review NO; Basophils Absolute Auto 0 /uL (0-100); Basophils Percent Auto 0.6 % (0-2); Eosinophils Absolute Auto 200 /uL (0-450); Hematocrit 40.5 % (36-46); Hemoglobin 13.9 g/dL (12.0-16.0); Lymphocytes Absolute Auto 1800 /uL (1100-4500); Lymphocytes Percent Auto 32.5 % (25-40); Mean Corpuscular HGB Conc 34.4 % (30-36); Mean Corpuscular Hemoglobin 30.7 PG (26-34); Mean Corpuscular Volume 89.3 fL (80-100); Monocytes Absolute Auto 500 /uL (0-900); Monocytes Percent Auto 8.4 % (3-14); Neutrophils Absolute Auto 3100 /uL (1500-7000); Neutrophils Percent Auto 54.5 % (50-75); Platelet Count 206 X10^3/uL (150-400); Red Blood Cell Count 4.54 X10^6/uL (4.0-5.2); Red Cell Distribution Width 13.5 % (11.6-14.8); White Blood Cell Count 5.7 X10^3/uL (4.5-11.0)
[2022-01-31 11:35] LABS: Hemoglobin A1C% w Est Avg Glu 6.8 % (4.0-6.0)
[2022-01-31 11:39] LABS: Alanine Aminotransferase 22 IU/L (<35); Albumin 4.2 g/dL (3.5-5.0); Albumin Globulin Ratio 1.5 (1.0-2.8); Alkaline Phosphatase 65 U/L (38-126); Aspartate Aminotransferase 20 IU/L (14-36); BUN Creatinine Ratio 22.7 (6-22); Bilirubin Total 0.5 mg/dL (0.2-1.3); Blood Urea Nitrogen 20 mg/dL (7-17); Calcium 8.6 mg/dL (8.4-10.2); Carbon Dioxide 28 mmol/L (22-32); Chloride 101 mmol/L (98-107); Cholesterol 234 mg/dL (140-199); Estimated Glomerular Filt Rate > 60 mL/min (>60); Globulin 2.8 g/dL (1.7-4.1); Glucose 126 mg/dL (80-110); HDL Cholesterol 55 mg/dL (40-60); HEMOLYSIS < 15 (0-50); LDL Cholesterol Calculated 145 mg/dL (<100); Potassium 4.4 mmol/L (3.4-5.1); Sodium 137 mmol/L (137-145); Triglycerides 168 mg/dL (35-150)
[2022-01-31 12:19] LABS: TSH w/ Reflex to FT4 2.54 uIU/mL (0.47-4.68)
== END ==
PROVIDERS: PCP Pediatrics; Referring Provider Nurse Practitioner; Visit Provider Nurse Practitioner
DX: I10 Essential (primary) hypertension (principal); E11.9 Type 2 diabetes mellitus without complications; E78.2 Mixed hyperlipidemia; Z13.9 Encounter for screening, unspecified
CPT/HCPCS: 36415; 80053; 80061; 82043; 82570; 83036; 84443; 85025

== ENCOUNTER → 2022-02-07 12:44 | Outpatient (CLI) | payer MEDICARE, OTHER, SELFPAY ==
--- NOTE | 2022-02-07 12:45 | DI.MG.S_ITS ---
BILATERAL DIGITAL SCREENING MAMMOGRAM 3D/2D WITH CAD: 02/07/2022 CLINICAL: Routine screening. Family history of breast cancer. Comparison is made to exams dated: 02/01/2021 mammogram, 02/18/2019 mammogram - [facility], and 06/29/2017 mammogram - [facility]. Both breasts are heterogeneously dense, which may obscure small masses (category c / 51-75% glandular tissue). Current study was also evaluated with a Computer Aided Detection (CAD) system. There are benign calcifications in both breasts. No significant masses, calcifications, or other findings are seen in either breast. There has been no significant interval change. IMPRESSION: BENIGN There is no mammographic evidence of malignancy. A 1 year screening mammogram is recommended. Based on the Tyrer Cuzick model (a risk assessment model) the patient's lifetime risk is 9.9% and her 10 year risk is 5.5%. According to the ACR, ACS, and NCCN guidelines, an annual breast MRI exam along with mammogram is recommended if the patient's lifetime risk is 20% or greater. This exam was interpreted at Station ID: [id number]. NOTE: For mammograms, a report in lay terms will be sent to the patient. Approximately 15% of breast malignancies will not be visualized mammographically. In the management of a palpable breast mass, a negative mammogram must not discourage biopsy of a clinically suspicious lesion. Electronically Signed By: Maximilian schwartz/penrad:02/07/2022 14:24:28 letter sent: Normal Exam ACR BI-RADS Category 2: Benign Finding(s) 3342F
== END ==
PROVIDERS: PCP Nurse Practitioner; Referring Provider Pediatrics; Visit Provider Pediatrics
DX: Z12.31 Encounter for screening mammogram for malignant neoplasm of breast (principal); Z80.3 Family history of malignant neoplasm of breast
CPT/HCPCS: 77063; 77067

== ENCOUNTER → 2022-02-17 11:17 | Outpatient (CLI) | payer MEDICARE, OTHER, SELFPAY ==
--- NOTE | 2022-02-17 11:19 | DI.RAD.S_ITS ---
PROCEDURE: XR CHEST 2V INDICATIONS: SOB with exertion TECHNIQUE: 2 views of the chest were acquired. COMPARISON: None. FINDINGS: Surgical changes and devices: None. Lungs and pleura: Lungs are clear. No pleural effusions or pneumothorax. Mediastinum: Mediastinal contours are normal. Heart size is normal. Bones and chest wall: No suspicious bony abnormalities. Soft tissues appear unremarkable. Mild age related degenerative changes are seen in the spine. IMPRESSION: No acute cardiopulmonary abnormality. Approved by: Rolly Sanchez M.D. on 02/17/2022 at 12:17
== END ==
PROVIDERS: PCP Nurse Practitioner; Referring Provider Nurse Practitioner; Visit Provider Nurse Practitioner
DX: R06.02 Shortness of breath (principal)
CPT/HCPCS: 71046

== ENCOUNTER → 2022-05-08 12:19 | Outpatient (CLI) | payer MEDICARE, OTHER, SELFPAY ==
[2022-05-09 14:21] LABS: Fecal Immunochemical Test Negative (Negative)
== END ==
PROVIDERS: PCP Nurse Practitioner; Referring Provider Nurse Practitioner; Visit Provider Nurse Practitioner
DX: Z12.11 Encounter for screening for malignant neoplasm of colon (principal)
CPT/HCPCS: 82274

== ENCOUNTER → 2022-10-09 09:14 | Outpatient (CLI) | payer MEDICARE, OTHER, SELFPAY ==
[2022-10-09 11:31] LABS: Alanine Aminotransferase 24 IU/L (<35); Albumin Globulin Ratio 1.6 (1.0-2.8); Alkaline Phosphatase 64 U/L (38-126); Aspartate Aminotransferase 22 IU/L (14-36); BUN Creatinine Ratio 19.6 (6-22); Bilirubin Total 0.4 mg/dL (0.2-1.3); Blood Urea Nitrogen 18 mg/dL (7-17); Calcium 8.9 mg/dL (8.4-10.2); Carbon Dioxide 31 mmol/L (22-32); Chloride 102 mmol/L (98-107); Cholesterol 187 mg/dL (140-199); Estimated Glomerular Filt Rate > 60 mL/min (>60); Globulin 2.5 g/dL (1.7-4.1); Glucose 120 mg/dL (80-110); HDL Cholesterol 51 mg/dL (40-60); HEMOLYSIS < 15 (0-50); LDL Cholesterol Calculated 109 mg/dL (<100); Potassium 4.6 mmol/L (3.4-5.1); Sodium 138 mmol/L (137-145); Total Protein 6.5 g/dL (6.3-8.2); Triglycerides 135 mg/dL (35-150)
[2022-10-10 09:17] LABS: x Labcorp Estim. Avg Glu (eAG) 151 mg/dL (.); x Labcorp Hemoglobin A1c 6.9 % (4.8-5.6)
== END ==
PROVIDERS: PCP Nurse Practitioner; Referring Provider Nurse Practitioner; Visit Provider Nurse Practitioner
DX: E11.9 Type 2 diabetes mellitus without complications (principal); E78.2 Mixed hyperlipidemia; I10 Essential (primary) hypertension; Z79.899 Other long term (current) drug therapy
CPT/HCPCS: 36415; 80053; 80061; 83036

== ENCOUNTER → 2023-01-20 11:49 | Outpatient (CLI) | payer MEDICARE, OTHER, SELFPAY ==
[2023-01-20 12:41] LABS: Influenza A - CEPHEID Flu A NEGATIVE (NEGATIVE); Influenza B - CEPHEID Flu B NEGATIVE (NEGATIVE); Respiratory Syncytial Virus Negative (Negative)
[2023-01-20 13:14] LABS: COVID-19 CEPHEID 4-PLEX PCR Negative (Negative)
== END ==
PROVIDERS: PCP Nurse Practitioner; Visit Provider Student in an Organized Health Care Education/Training Program
DX: R05.1 Acute cough (principal)
CPT/HCPCS: 0241U

== ENCOUNTER → 2023-01-20 12:20 | Outpatient (CLI) | payer MEDICARE, OTHER, SELFPAY ==
--- NOTE | 2023-01-20 12:22 | DI.RAD.S_ITS ---
PROCEDURE: XR CHEST 2V INDICATIONS: cough 2 wks, worsening wheezing, CP w/ cough TECHNIQUE: 2 views of the chest were acquired. COMPARISON: , CR, XR CHEST 2V, 02/17/2022, 12:30. FINDINGS: Surgical changes and devices: None. Lungs and pleura: Lungs are clear. No pleural effusions or pneumothorax. Mediastinum: Mediastinal contours are normal. Heart size is normal. Bones and chest wall: No suspicious bony abnormalities. Soft tissues appear unremarkable. IMPRESSION: No acute cardiopulmonary abnormality is seen. Dictated by: Christofer Edouard M.D. on 01/20/2023 at 13:47 Approved by: Christofer Edouard M.D. on 01/20/2023 at 13:47
== END ==
PROVIDERS: PCP Nurse Practitioner; Referring Provider Student in an Organized Health Care Education/Training Program; Visit Provider Student in an Organized Health Care Education/Training Program
DX: R05.1 Acute cough (principal); R06.2 Wheezing
CPT/HCPCS: 0241U; 71046

== ENCOUNTER → 2023-02-11 12:48 | Outpatient (CLI) | payer MEDICARE, OTHER, SELFPAY ==
--- NOTE | 2023-02-11 | DI.MG.S_ITS ---
BILATERAL DIGITAL SCREENING MAMMOGRAM 3D/2D WITH CAD: 02/11/2023 CLINICAL: Routine screening. Family history of breast cancer. Comparison is made to exams dated: 02/07/2022 mammogram, 02/01/2021 mammogram, 02/18/2019 mammogram - [facility], and 06/29/2017 mammogram - [facility]. Both breasts are heterogeneously dense, which may obscure small masses (category c / 51-75% glandular tissue). Current study was also evaluated with a Computer Aided Detection (CAD) system. There are benign calcifications in both breasts. No significant masses, calcifications, or other findings are seen in either breast. There has been no significant interval change. IMPRESSION: BENIGN There is no mammographic evidence of malignancy. A 1 year screening mammogram is recommended. Based on the Tyrer Cuzick model (a risk assessment model) the patient's lifetime risk is 9.3% and her 10 year risk is 5.5%. According to the ACR, ACS, and NCCN guidelines, an annual breast MRI exam along with mammogram is recommended if the patient's lifetime risk is 20% or greater. This exam was interpreted at Station ID: [id number]. NOTE: For mammograms, a report in lay terms will be sent to the patient. Approximately 15% of breast malignancies will not be visualized mammographically. In the management of a palpable breast mass, a negative mammogram must not discourage biopsy of a clinically suspicious lesion. Electronically Signed By: Jorge garcia/julieth:02/11/2023 17:08:04 letter sent: Normal Exam ACR BI-RADS Category 2: Benign Finding(s) 3342F
== END ==
PROVIDERS: PCP Nurse Practitioner; Referring Provider Nurse Practitioner; Visit Provider Nurse Practitioner
DX: Z12.31 Encounter for screening mammogram for malignant neoplasm of breast (principal); Z80.3 Family history of malignant neoplasm of breast
CPT/HCPCS: 77063; 77067

== ENCOUNTER → 2023-02-19 08:42 | Outpatient (CLI) | payer MEDICARE, OTHER, SELFPAY ==
[2023-02-19 09:49] LABS: Hemoglobin A1C% w Est Avg Glu 7.8 % (4.0-6.0)
[2023-02-19 09:56] LABS: Alanine Aminotransferase 18 IU/L (<35); Albumin 3.9 g/dL (3.5-5.0); Albumin Globulin Ratio 1.5 (1.0-2.8); Alkaline Phosphatase 50 U/L (38-126); Aspartate Aminotransferase 23 IU/L (14-36); BUN Creatinine Ratio 22.8 (6-22); Bilirubin Total 0.7 mg/dL (0.2-1.3); Blood Urea Nitrogen 18 mg/dL (7-17); Calcium 9.1 mg/dL (8.4-10.2); Carbon Dioxide 28 mmol/L (22-32); Chloride 101 mmol/L (98-107); Cholesterol 176 mg/dL (140-199); Estimated Glomerular Filt Rate > 60 mL/min (>60); Globulin 2.6 g/dL (1.7-4.1); Glucose 134 mg/dL (80-110); HDL Cholesterol 59 mg/dL (40-60); HEMOLYSIS < 15 (0-50); LDL Cholesterol Calculated 89 mg/dL (<100); Potassium 4.5 mmol/L (3.4-5.1); Sodium 135 mmol/L (137-145); Total Protein 6.5 g/dL (6.3-8.2); Triglycerides 142 mg/dL (35-150)
[2023-02-19 10:13] LABS: Free T3, Triiodothyronine Free 3.19 pg/mL (2.77-5.27); Free T4, Direct Thyroxine 0.88 ng/dL (0.78-2.19)
[2023-02-19 10:26] LABS: Thyroid Stimulating Hormone 1.63 uIU/mL (0.47-4.68)
[2023-02-19 10:39] LABS: Creatinine Urine Random 77.6 mg/dL
[2023-02-19 10:50] LABS: Microalbumin Urine Random < 0.6 mg/dL (0-1.6)
== END ==
PROVIDERS: PCP Nurse Practitioner; Referring Provider Nurse Practitioner; Visit Provider Nurse Practitioner
DX: E11.69 Type 2 diabetes mellitus with other specified complication (principal); E78.5 Hyperlipidemia, unspecified; F41.9 Anxiety disorder, unspecified; F32.A Depression, unspecified; E78.2 Mixed hyperlipidemia; I10 Essential (primary) hypertension; E11.9 Type 2 diabetes mellitus without complications; Z79.899 Other long term (current) drug therapy
CPT/HCPCS: 36415; 80053; 80061; 82043; 82570; 83036; 84439; 84443; 84481

== ENCOUNTER → 2023-04-07 13:05 | Outpatient (CLI) | payer MEDICARE, OTHER, SELFPAY | PROVIDERS: PCP Nurse Practitioner; Visit Provider Physician Assistant | DX: R30.0 Dysuria (principal) | CPT/HCPCS: 87077; 87086; 87186 ==

== ENCOUNTER → 2023-05-03 11:15 | Outpatient (CLI) | payer MEDICARE, OTHER, SELFPAY | PROVIDERS: PCP Nurse Practitioner; Visit Provider Physician Assistant Surgical | DX: R31.9 Hematuria, unspecified (principal) | CPT/HCPCS: 87077; 87086; 87186 ==

== ENCOUNTER → 2023-05-22 09:33 | Outpatient (CLI) | payer MEDICARE, OTHER, SELFPAY ==
[2023-05-22 10:41] LABS: Alanine Aminotransferase 21 IU/L (<35); Albumin 4.1 g/dL (3.5-5.0); Albumin Globulin Ratio 1.4 (1.0-2.8); Alkaline Phosphatase 58 U/L (38-126); Aspartate Aminotransferase 23 IU/L (14-36); BUN Creatinine Ratio 24.7 (6-22); Bilirubin Total 0.6 mg/dL (0.2-1.3); Blood Urea Nitrogen 21 mg/dL (7-17); Calcium 8.8 mg/dL (8.4-10.2); Carbon Dioxide 30 mmol/L (22-32); Chloride 104 mmol/L (98-107); Cholesterol 185 mg/dL (140-199); Estimated Glomerular Filt Rate > 60 mL/min (>60); Globulin 2.9 g/dL (1.7-4.1); Glucose 132 mg/dL (80-110); HDL Cholesterol 60 mg/dL (40-60); HEMOLYSIS < 15 (0-50); LDL Cholesterol Calculated 102 mg/dL (<100); Potassium 4.2 mmol/L (3.4-5.1); Sodium 137 mmol/L (137-145); Triglycerides 114 mg/dL (35-150)
[2023-05-22 10:42] LABS: Hemoglobin A1C% w Est Avg Glu 6.8 % (4.0-6.0)
[2023-05-22 10:59] LABS: Free T3, Triiodothyronine Free 3.28 pg/mL (2.77-5.27); Free T4, Direct Thyroxine 0.87 ng/dL (0.78-2.19)
[2023-05-22 11:11] LABS: Thyroid Stimulating Hormone 1.71 uIU/mL (0.47-4.68)
[2023-05-22 12:52] LABS: Creatinine Urine Random 66.7 mg/dL
[2023-05-22 12:56] LABS: Microalbumin Urine Random < 0.6 mg/dL (0-1.6)
== END ==
PROVIDERS: PCP Nurse Practitioner; Referring Provider Nurse Practitioner; Visit Provider Nurse Practitioner
DX: E11.69 Type 2 diabetes mellitus with other specified complication (principal); E78.5 Hyperlipidemia, unspecified; E78.2 Mixed hyperlipidemia; I10 Essential (primary) hypertension; Z79.899 Other long term (current) drug therapy
CPT/HCPCS: 36415; 80053; 80061; 82043; 82570; 83036; 84439; 84443; 84481

== ENCOUNTER → 2023-06-12 11:56 | Outpatient (CLI) | payer MEDICARE, OTHER, SELFPAY ==
[2023-06-12 12:18] LABS: Appearance Urine UA CLEAR; Bilirubin Urine UA NEGATIVE (NEGATIVE); Color Urine UA YELLOW; Glucose Urine UA NEGATIVE (Negative); Ketones Urine UA NEGATIVE (NEGATIVE); Leukocyte Esterase Urine UA 2+ (NEGATIVE); Nitrite Urine UA NEGATIVE (Negative); Occult Blood Urine UA TRACE-INTACT (Negative); Protein Urine UA NEGATIVE (Negative); Specific Gravity Urine UA <=1.005 (1.000-1.035); Urobilinogen Urine UA 0.2 E.U./dL (0.2)
[2023-06-12 12:25] LABS: Bacteria Urine None Seen; Culture Indicated Urine Specimen Cultured; RBC Urine None Seen (0-5/HPF); Squamous Epithelial Cell Urine None Seen (0-5/HPF); Urine Volume 10mL (spun); WBC Urine 1-5/HPF (0-5/HPF)
== END ==
PROVIDERS: PCP Nurse Practitioner; Visit Provider Nurse Practitioner Family
DX: R30.0 Dysuria (principal)
CPT/HCPCS: 81001; 87086

== ENCOUNTER → 2023-07-08 11:37 | Outpatient (CLI) | payer MEDICARE, OTHER, SELFPAY ==
--- NOTE | 2023-07-08 | DI.MG.S_ITS ---
UNILATERAL RIGHT DIGITAL DIAGNOSTIC MAMMOGRAM 3D/2D: 07/08/2023 CLINICAL: Right breast lump. Comparison is made to exams dated: 02/11/2023 mammogram, 02/07/2022 mammogram, and 02/01/2021 mammogram - [facility]. The right breast is heterogeneously dense, which may obscure small masses (category c / 51-75% glandular tissue). No significant masses, calcifications, or other findings are seen in the breast. IMPRESSION: INCOMPLETE: NEEDS ADDITIONAL IMAGING EVALUATION No mammographic evidence of malignancy. A targeted ultrasound is recommended and will immediately follow. Based on the Tyrer Cuzick model (a risk assessment model) the patient's lifetime risk is 9.3% and her 10 year risk is 5.5%. According to the ACR, ACS, and NCCN guidelines, an annual breast MRI exam along with mammogram is recommended if the patient's lifetime risk is 20% or greater. This exam was interpreted at Station ID: [id number]. NOTE: For mammograms, a report in lay terms will be sent to the patient. Approximately 15% of breast malignancies will not be visualized mammographically. In the management of a palpable breast mass, a negative mammogram must not discourage biopsy of a clinically suspicious lesion. Electronically Signed By: Jorge Victoria M.D. slc/:07/08/2023 12:30:39 ACR BI-RADS Category 0: Incomplete 3340F
--- NOTE | 2023-07-08 11:38 | DI.US.S_ITS ---
PROCEDURE: US PELVIC COMPLETE INDICATIONS: right adnexal tenderness TECHNIQUE: Real-time scanning was performed of the pelvic organs, with image documentation. Additional endovaginal scanning was necessary due to incomplete visualization of the adnexal and endometrial structures by transabdominal scanning. COMPARISON: None. FINDINGS: Uterus: Status post hysterectomy. Ovaries: Status post bilateral oophorectomy. No suspicious adnexal mass. Other: No pathologic free abdominal or pelvic fluid. IMPRESSION: Status post hysterectomy and bilateral oophorectomy. No adnexal mass. Approved by: Rolly Sanchez M.D. on 07/08/2023 at 20:42
--- NOTE | 2023-07-08 11:38 | DI.US.S_ITS ---
LIMITED ULTRASOUND OF RIGHT BREAST: 07/08/2023 CLINICAL: Palpable right lateral chest lump. Comparison is made to exams dated: 07/08/2023 mammogram, 02/11/2023 mammogram, 02/07/2022 mammogram, and 02/01/2021 mammogram - . Color flow and real-time ultrasound of the right breast lower outer quadrant were performed. Collado scale images of the real-time examination were reviewed. There is a benign 3 cm x 2.3 cm x 1.4 cm oval lipoma in the right breast at 9 o'clock posterior depth. This oval lipoma is isoechoic. This correlates as palpated. IMPRESSION: BENIGN There is no sonographic evidence of malignancy. The 3 cm oval lipoma in the right breast at the palpable abnormality is benign. Exam findings were conveyed to the patient. Patient is advised to monitor for significant change. Clinical follow-up as needed. A 1 year screening mammogram is recommended. This exam was interpreted at Station ID: [id number]. Electronically Signed By: Jorge Victoria M.D. slc/:07/08/2023 13:27:36 letter sent: Normal Exam Ultrasound BI-RADS: 2 Benign
== END ==
LOC: MAMMO 11:37
PROVIDERS: PCP Nurse Practitioner; Referring Provider Nurse Practitioner; Visit Provider Nurse Practitioner
DX: R92.2 Inconclusive mammogram; R92.331 Mammographic heterogeneous density, right breast; N63.10 Unspecified lump in the right breast, unspecified quadrant; D17.1 Benign lipomatous neoplasm of skin and subcutaneous tissue of trunk; R10.2 Pelvic and perineal pain; Z90.710 Acquired absence of both cervix and uterus; Z90.722 Acquired absence of ovaries, bilateral; Z85.42 Personal history of malignant neoplasm of other parts of uterus
CPT/HCPCS: 76642; 76830; 76856; 77065; G0279

== ENCOUNTER → 2023-09-30 09:25 | Outpatient (CLI) | payer MEDICARE, OTHER, SELFPAY ==
[2023-09-30 11:01] LABS: Alanine Aminotransferase 16 IU/L (<35); Albumin Globulin Ratio 1.5 (1.0-2.8); Alkaline Phosphatase 56 U/L (38-126); Aspartate Aminotransferase 21 IU/L (14-36); BUN Creatinine Ratio 18.3 (6-22); Bilirubin Total 0.5 mg/dL (0.2-1.3); Blood Urea Nitrogen 15 mg/dL (7-17); Calcium 8.5 mg/dL (8.4-10.2); Carbon Dioxide 28 mmol/L (22-32); Chloride 105 mmol/L (98-107); Cholesterol 173 mg/dL (140-199); Estimated Glomerular Filt Rate > 60 mL/min (>60); Globulin 2.6 g/dL (1.7-4.1); Glucose 135 mg/dL (80-110); HDL Cholesterol 58 mg/dL (40-60); HEMOLYSIS < 15 (0-50); LDL Cholesterol Calculated 90 mg/dL (<100); Potassium 4.8 mmol/L (3.4-5.1); Sodium 138 mmol/L (137-145); Total Protein 6.6 g/dL (6.3-8.2); Triglycerides 126 mg/dL (35-150)
== END ==
PROVIDERS: PCP Nurse Practitioner; Referring Provider Nurse Practitioner; Visit Provider Nurse Practitioner
DX: E11.69 Type 2 diabetes mellitus with other specified complication (principal); E78.5 Hyperlipidemia, unspecified; E78.2 Mixed hyperlipidemia; I10 Essential (primary) hypertension; Z79.899 Other long term (current) drug therapy
CPT/HCPCS: 36415; 80053; 80061; 83036

== ENCOUNTER → 2023-10-09 09:49 | Outpatient (CLI) | payer MEDICARE, OTHER, SELFPAY ==
--- NOTE | 2023-10-09 09:51 | DI.CT.S_ITS ---
PROCEDURE: CT KIDNEY URETER BLADDER (KUB) INDICATIONS: blood in urine, history of kidney stones TECHNIQUE: Axial sections were acquired from the lung bases to the pubic symphysis. Coronal and sagittal reformats were performed. For radiation dose reduction, the following was used: automated exposure control, adjustment of mA and/or kV according to patient size. COMPARISON: None. FINDINGS: Image quality: Diagnostic. Lower Chest: No significant findings. URINARY: Right Kidney: Mild hydronephrosis. 7 mm fat containing lesion at the anterior interpolar region of the right kidney is suspicious for a benign angiomyolipoma. Right Ureter: 2 mm calculus in the right proximal ureter at the ureterovesical junction. Left Kidney: 3 mm calculus at the superior pole of the left kidney. 1 mm calculus at the interpolar region. No hydronephrosis. Left Ureter: No hydroureter. Bladder: Normal wall thickness. No stones. ABDOMEN: Liver: No contour-deforming solid mass. Gallbladder: No radiopaque gallstones or wall thickening. Biliary ducts: No biliary dilation. Pancreas: No ductal dilation. Spleen: Size is within normal limits. Adrenal Glands: No adrenal nodules. Stomach and Bowel: Normal colonic caliber, without significant wall thickening. Peritoneum: No abnormal intraperitoneal fluid. No free air. Ventral Wall: No hernia. Abdominal Nodes: No enlarged retroperitoneal or mesenteric lymph nodes. Vessels: Aorta and inferior vena cava are normal in size. PELVIS: Pelvic Organs: Status rectum. Pelvic Nodes: Unremarkable. Miscellaneous: Small fat containing inguinal hernias bilaterally. Bones: Degenerative changes are seen at the sacroiliac joints and included spine. IMPRESSION: 1. Right proximal ureteral 2 mm calculus with mild right hydronephrosis. 2. Small non-obstructing left renal calculi. No left hydronephrosis. Approved by: Rolly Sanchez M.D. on 10/09/2023 at 20:41
== END ==
LOC: CT 09:50
PROVIDERS: PCP Nurse Practitioner; Referring Provider Nurse Practitioner; Visit Provider Nurse Practitioner
DX: N13.2 Hydronephrosis with renal and ureteral calculous obstruction (principal)
CPT/HCPCS: 74176

== ENCOUNTER → 2023-11-18 09:06 | Outpatient (CLI) | payer MEDICARE, OTHER, SELFPAY ==
[2023-11-18 10:32] LABS: Hemoglobin A1C% w Est Avg Glu 6.5 % (4.0-6.0)
[2023-11-18 10:45] LABS: Alanine Aminotransferase 17 IU/L (<35); Albumin 4.2 g/dL (3.5-5.0); Albumin Globulin Ratio 1.7 (1.0-2.8); Alkaline Phosphatase 58 U/L (38-126); Aspartate Aminotransferase 22 IU/L (14-36); BUN Creatinine Ratio 15.4 (6-22); Bilirubin Total 0.6 mg/dL (0.2-1.3); Blood Urea Nitrogen 14 mg/dL (7-17); Calcium 9.4 mg/dL (8.4-10.2); Carbon Dioxide 27 mmol/L (22-32); Chloride 102 mmol/L (98-107); Cholesterol 184 mg/dL (140-199); Estimated Glomerular Filt Rate > 60 mL/min (>60); Globulin 2.5 g/dL (1.7-4.1); Glucose 122 mg/dL (80-110); HDL Cholesterol 56 mg/dL (40-60); HEMOLYSIS < 15 (0-50); LDL Cholesterol Calculated 95 mg/dL (<100); Potassium 4.7 mmol/L (3.4-5.1); Sodium 138 mmol/L (137-145); Total Protein 6.7 g/dL (6.3-8.2); Triglycerides 163 mg/dL (35-150)
== END ==
PROVIDERS: PCP Nurse Practitioner; Referring Provider Nurse Practitioner; Visit Provider Nurse Practitioner
DX: E11.69 Type 2 diabetes mellitus with other specified complication (principal); E78.2 Mixed hyperlipidemia; E78.5 Hyperlipidemia, unspecified; Z79.899 Other long term (current) drug therapy
CPT/HCPCS: 36415; 80053; 80061; 83036

== ENCOUNTER → 2023-11-24 11:47 | Outpatient (CLI) | payer MEDICARE, OTHER, SELFPAY ==
[2023-11-30 20:36] LABS: 18 kD IgG Band Absent (.); 23 kD IgG Band Absent (.); 28 kD IgG Band Absent (.); 30 kD IgG Band Absent (.); 39 kD IgG Band Absent (.); 41 kD IgG Bands Absent (.); 45 kD IgG Band Absent (.); 58 kD IgG Band Absent (.); 66 kD IgG Band Absent (.); IgG P93 AB Absent (.); IgM P23 AB Absent (.); IgM P39 AB Absent (.); IgM P41 AB Absent (.); Lyme IgG Line Blot Interpretat Negative (.); Lyme IgM Line Blot Interpretat Negative (.)
== END ==
PROVIDERS: PCP Nurse Practitioner; Referring Provider Nurse Practitioner; Visit Provider Nurse Practitioner
DX: S30.861A Insect bite (nonvenomous) of abdominal wall, initial encounter (principal); W57.XXXA Bitten or stung by nonvenomous insect and other nonvenomous arthropods, initial encounter
CPT/HCPCS: 36415; 86617

== ENCOUNTER → 2024-02-16 08:54 | Outpatient (CLI) | payer MEDICARE, OTHER, SELFPAY ==
[2024-02-16 10:54] LABS: Alanine Aminotransferase 19 IU/L (<35); Albumin 3.9 g/dL (3.5-5.0); Albumin Globulin Ratio 1.4 (1.0-2.8); Alkaline Phosphatase 61 U/L (38-126); Aspartate Aminotransferase 21 IU/L (14-36); BUN Creatinine Ratio 19.4 (6-22); Bilirubin Total 0.7 mg/dL (0.2-1.3); Blood Urea Nitrogen 19 mg/dL (7-17); Calcium 9.3 mg/dL (8.4-10.2); Carbon Dioxide 31 mmol/L (22-32); Chloride 101 mmol/L (98-107); Cholesterol 162 mg/dL (140-199); Estimated Glomerular Filt Rate > 60 mL/min (>60); Globulin 2.8 g/dL (1.7-4.1); Glucose 141 mg/dL (80-110); HDL Cholesterol 59 mg/dL (40-60); HEMOLYSIS < 15 (0-50); LDL Cholesterol Calculated 77 mg/dL (<100); Potassium 4.6 mmol/L (3.4-5.1); Sodium 134 mmol/L (137-145); Total Protein 6.7 g/dL (6.3-8.2); Triglycerides 129 mg/dL (35-150)
[2024-02-16 11:25] LABS: Hemoglobin A1C% w Est Avg Glu 6.9 % (4.0-6.0)
== END ==
PROVIDERS: PCP Family Medicine; Referring Provider Nurse Practitioner; Visit Provider Nurse Practitioner
DX: E11.69 Type 2 diabetes mellitus with other specified complication (principal); I10 Essential (primary) hypertension; E78.2 Mixed hyperlipidemia
CPT/HCPCS: 36415; 80053; 80061; 83036

== ENCOUNTER → 2024-03-01 15:49 | Outpatient (CLI) | payer MEDICARE, OTHER, SELFPAY ==
[2024-03-01 17:43] LABS: Appearance Urine UA CLEAR; Bilirubin Urine UA NEGATIVE (NEGATIVE); Color Urine UA YELLOW; Glucose Urine UA NEGATIVE (Negative); Ketones Urine UA NEGATIVE (NEGATIVE); Leukocyte Esterase Urine UA 2+ (NEGATIVE); Nitrite Urine UA POSITIVE (Negative); Occult Blood Urine UA 1+ (Negative); Protein Urine UA NEGATIVE (Negative); Specific Gravity Urine UA <=1.005 (1.000-1.035); Urobilinogen Urine UA 0.2 E.U./dL (0.2)
[2024-03-01 17:54] LABS: RBC Urine 1-5/HPF (0-5/HPF); Urine Volume 10mL (spun)
[2024-03-01 17:55] LABS: Bacteria Urine Moderate (10-30); Culture Indicated Urine Specimen Cultured; Squamous Epithelial Cell Urine 1-5 /HPF (0-5/HPF); WBC Urine 5-10/HPF (0-5/HPF)
== END ==
PROVIDERS: PCP Family Medicine; Referring Provider Family Medicine; Visit Provider Family Medicine
DX: N39.0 Urinary tract infection, site not specified (principal); R31.0 Gross hematuria
CPT/HCPCS: 81001; 87077; 87086; 87186

== ENCOUNTER → 2024-03-11 13:45 | Outpatient (CLI) | payer MEDICARE, OTHER, SELFPAY ==
[2024-03-11 14:34] LABS: Bacteria Urine Moderate (10-30); RBC Urine None Seen (0-5/HPF); Squamous Epithelial Cell Urine 1-5 /HPF (0-5/HPF); Urine Volume 10mL (spun); WBC Urine 5-10/HPF (0-5/HPF)
[2024-03-11 14:35] LABS: Culture Indicated Urine Specimen Cultured
== END ==
PROVIDERS: PCP Family Medicine; Referring Provider Family Medicine; Visit Provider Family Medicine
DX: R30.0 Dysuria (principal)
CPT/HCPCS: 81015; 87077; 87086

== ENCOUNTER → 2024-04-16 15:31 | Outpatient (CLI) | payer MEDICARE, OTHER, SELFPAY | PROVIDERS: PCP Family Medicine; Visit Provider Physician Assistant Medical | DX: R30.0 Dysuria (principal) | CPT/HCPCS: 87077; 87086; 87186 ==

== ENCOUNTER 2024-05-12 16:36 | Emergency (ER) | payer MEDICARE, OTHER, SELFPAY ==
[2024-05-12 16:42] VITALS: BP 218/102; PULSE 96; RESP 18; TEMP 36.8; O2SAT 96; BMI 34.5
[2024-05-12 17:10] LABS: Bacteria Urine Occasional (0-1); Culture Indicated Urine Cult Not Indicated; RBC Urine 1-5/HPF (0-5/HPF); Squamous Epithelial Cell Urine 0-1 /HPF (0-5/HPF); Urine Volume 10mL (spun); WBC Urine 0-1/HPF (0-5/HPF)
--- NOTE | 2024-05-12 17:14 | ED.FEMALEGU ---
HPI - Female Genitourinary <Eileen Loco PA-C - Last Filed: 05/12/24 20:30> General Chief complaint: Urogenital-Female Stated complaint: lt sided pain, nausea Time Seen by Provider: 05/12/24 17:00 Source: patient Mode of arrival: Ambulatory History of Present Illness HPI Narrative: Ms. Daly is a very pleasant 68-year-old female with a past medical history of uterine cancer s/p total hysterectomy, hypertension, hyperlipidemia, nephrolithiasis, type 2 diabetes on metformin who presents to the emergency department for left flank pain associated with nausea for 2 days. Patient states yesterday she had an episode of left flank pain that self-resolved, left flank pain returned today and was worse causing her to feel nauseous however this has also improved significantly at this time. She does have a history of kidney stones with similar symptoms. She admits to some dysuria but no gross hematuria. Denies chest pain, shortness of breath, vomiting, diarrhea, constipation. Related Data Home Medications Medication Instructions Recorded Confirmed cetirizine 10 mg tablet (Zyrtec) 10 mg PO DAILY PRN 08/23/21 03/11/24 irbesartan 300 mg tablet 300 mg PO DAILY 02/23/24 03/11/24 Previous Rx's Medication Instructions Recorded blood-glucose meter #1 ea 10/22/21 Blood pressure cuff - OMRON upper #1 ea 02/17/22 arm cuff omega-3 fatty acids 1,000 mg 1,000 mg PO BID #180 caps 02/17/22 capsule albuterol sulfate 90 mcg/actuation 2 puff inhalation Q4-6H PRN 01/14/23 aerosol inhaler shortness of breath or wheezing #8.5 grams ezetimibe 10 mg tablet 10 mg PO DAILY #90 tabs 10/12/23 metformin 500 mg tablet,extended See Rx Instructions PO .COMPLEX 10/26/23 release 24 hr #360 tabs blood sugar diagnostic (Blood #200 ea 10/27/23 Glucose Test strips) lancets 28 gauge (FreeStyle #100 ea 11/02/23 Lancets) tamsulosin 0.4 mg capsule 0.4 mg PO DAILY PRN Kidney stone 02/23/24 #30 caps estradiol 0.01% (0.1 mg/gram) 1 g vaginal 2XW PRN vulvovaginal 03/11/24 vaginal cream irritation #42.5 grams fosfomycin tromethamine 3 gram 3 g PO ONCE #1 ea 04/16/24 oral packet metoprolol succinate 50 mg 50 mg PO DAILY #90 tabs 04/21/24 tablet,extended release 24 hr ketorolac 10 mg tablet 10 mg PO Q6H PRN pain #15 tabs 05/12/24 ondansetron 4 mg disintegrating 4 mg PO Q8H PRN nausea and 05/12/24 tablet vomiting #15 tabs Allergies Allergy/AdvReac Type Severity Reaction Status Date / Time amlodipine Allergy Intermediate forgetfulln Verified 04/16/24 15:56 ess atorvastatin Allergy Intermediate memory loss Verified 04/16/24 15:56 latex Allergy Intermediate rash Verified 04/16/24 15:56 Opioids - Morphine Analogues Allergy Verified 04/16/24 15:56 Review of Systems <Eileen Loco PA-C - Last Filed: 05/12/24 20:30> Review of Systems ROS Unobtainable: All systems reviewed & are unremarkable except as noted in HPI and below Patient History <Eileen Loco PA-C - Last Filed: 05/12/24 20:30> Medical History Frequent UTI Breast mass, right Multiple allergies Environmental allergies Type 2 diabetes mellitus with hyperlipidemia History of uterine cancer Changes in vision Left knee pain URI (upper respiratory infection) Hyperlipidemia Vision disorder Plantar warts (~1963) Osteoarthritis (~2008) Seasonal allergies Post traumatic stress disorder (PTSD) (~1982) Anxiety Transient ischemic attack (~2007) Shoulder pain Fractures Foot pain Carpal tunnel syndrome Rubella (~1953) Measles (~1959) Chicken pox (~1961) Meniere's disease Vertigo (~1982) Tinnitus (~1996) Recurrent sinusitis History of recurrent ear infection (~1953) Hearing loss (~1996) Painful menstrual periods Ovarian cyst Irregular menstrual cycle Herpes (~1985) Abnormal Pap smear of cervix (~2015) History of urinary incontinence Kidney stones (~2008) Hepatitis B (~1974) Hemorrhoid Borderline diabetes (~2011) Hypertension (~1989) Uterine cancer (~2015) Surgical History Hx of tubal ligation Hx of breast biopsy Anesthesia History of hysterectomy (~2015) History of section History of appendectomy (~1967) History of tonsillectomy (~1969) Family History Father History of heart disease Hyperlipidemia Hypertension Stroke Coronary artery disease Diabetes mellitus Evaluation of hearing impairment Mother Diabetes mellitus History of heart disease Hypertension Hyperlipidemia Stroke Coronary artery disease Brother History of heart disease Hyperlipidemia Hypertension Coronary artery disease Kidney stones Brother Pacemaker Bipolar disorder History of heart disease Hyperlipidemia Hypertension Mental health problem Grandfather Stroke Grandmother Stroke Cancer Grandfather Stroke Grandmother History of heart disease Son Migraines Exam <Eileen Loco PA-C - Last Filed: 05/12/24 20:30> Narrative Exam Narrative: GENERAL: 68 year old patient appears stated age. Well-developed patient, in no acute distress. NECK: Trachea midline. Cervical ROM intact. CARDIOVASCULAR: Regular rate and rhythm. RESPIRATORY: ?Nonlabored respirations. ?Speaking in clear, full sentences. ?Clear to auscultation. GASTROINTESTINAL: Abdomen soft, non-tender, nondistended. Normal bowel sounds. No CVA tenderness. EXTREMITIES: No edema or joint tenderness. BACK: Nontender without deformity or crepitance. No flank tenderness. NEURO: AOx3. ?Clear speech. ?Moves all 4 extremities appropriately. SKIN: No rash or erythema of visible areas Initial Vital Signs Initial Vital Signs: Vital Signs Temperature 98.2 F 05/12/24 16:42 Pulse Rate 96 H 05/12/24 16:42 Respiratory Rate 18 05/12/24 16:42 Blood Pressure 218/102 H 05/12/24 16:42 Pulse Oximetry 96 05/12/24 16:42 Oxygen Delivery Method Room Air 05/12/24 16:42 <Jero Allison MD - Last Filed: 05/13/24 02:58> Initial Vital Signs Initial Vital Signs: Vital Signs Temperature 98.2 F 05/12/24 16:42 Pulse Rate 96 H 05/12/24 16:42 Respiratory Rate 18 05/12/24 16:42 Blood Pressure 218/102 H 05/12/24 16:42 Pulse Oximetry 96 05/12/24 16:42 Oxygen Delivery Method Room Air 05/12/24 16:42 Course <Eileen Loco PA-C - Last Filed: 05/12/24 20:30> Orders Ordered: Discontinued Medications Sodium Chloride (Normal Saline 0.9%) 1,000 mls @ 500 mls/hr IV BOLUS ONE Stop: 05/12/24 19:48 Last Infusion: 05/12/24 20:01 Dose: Infused Documented By: Infusion: 05/12/24 18:20 Dose: 500 mls/hr Documented By: Infusion: 05/12/24 18:03 Dose: 0 mls/hr Documented By: Admin: 05/12/24 17:56 Dose: 500 mls/hr Documented By: RB Ketorolac Tromethamine (Ketorolac 30 Mg/Ml Vial) 15 mg IV NOW ONE Stop: 05/12/24 17:50 Last Admin: 05/12/24 17:55 Dose: 15 mg Documented By: RB Ondansetron HCl (Ondansetron 4 Mg/2 Ml Inj) 4 mg IV NOW PRN PRN Reason: Nausea And Vomiting Ondansetron HCl (Ondansetron 4 Mg Odt) 4 mg SL NOW PRN PRN Reason: Nausea And Vomiting Ondansetron HCl (Ondansetron 4 Mg/2 Ml Inj) 4 mg IV NOW ONE Stop: 05/12/24 17:50 Last Admin: 05/12/24 17:56 Dose: 4 mg Documented By: RB Vital Signs Vital signs: Vital Signs - 8 hr 05/12/24 20:32 Temperature 97.3 F L Pulse Rate 57 L Respiratory Rate 17 Blood Pressure 220/99 H Pulse Oximetry 98 Oxygen Delivery Method Room Air <Jero Allison MD - Last Filed: 05/13/24 02:58> Orders Ordered: Discontinued Medications Sodium Chloride (Normal Saline 0.9%) 1,000 mls @ 500 mls/hr IV BOLUS ONE Stop: 05/12/24 19:48 Last Infusion: 05/12/24 20:01 Dose: Infused Documented By: Infusion: 05/12/24 18:20 Dose: 500 mls/hr Documented By: Infusion: 05/12/24 18:03 Dose: 0 mls/hr Documented By: Admin: 05/12/24 17:56 Dose: 500 mls/hr Documented By: RB Ketorolac Tromethamine (Ketorolac 30 Mg/Ml Vial) 15 mg IV NOW ONE Stop: 05/12/24 17:50 Last Admin: 05/12/24 17:55 Dose: 15 mg Documented By: RB Ondansetron HCl (Ondansetron 4 Mg/2 Ml Inj) 4 mg IV NOW PRN PRN Reason: Nausea And Vomiting Ondansetron HCl (Ondansetron 4 Mg Odt) 4 mg SL NOW PRN PRN Reason: Nausea And Vomiting Ondansetron HCl (Ondansetron 4 Mg/2 Ml Inj) 4 mg IV NOW ONE Stop: 05/12/24 17:50 Last Admin: 05/12/24 17:56 Dose: 4 mg Documented By: RB Vital Signs Vital signs: Vital Signs - 8 hr 05/12/24 20:32 Temperature 97.3 F L Pulse Rate 57 L Respiratory Rate 17 Blood Pressure 220/99 H Pulse Oximetry 98 Oxygen Delivery Method Room Air MDM - Female Genitourinary <Eileen Loco PA-C - Last Filed: 05/12/24 20:30> Medical Records Attestation: I reviewed the patient's medical records. Lab Data 05/12/24 17:20 05/12/24 17:20 Labs: Lab Results 05/12/24 05/12/24 Range/Units 16:45 17:20 WBC 10.5 (4.5-11.0) X10^3/uL RBC 4.52 (4.0-5.2) X10^6/uL Hgb 13.6 (12.0-16.0) g/dL Hct 40.9 (36-46) % MCV 90.5 (80-100) fL MCH 30.1 (26-34) PG MCHC 33.2 (30-36) % RDW 13.5 (11.6-14.8) % Plt Count 229 (150-400) X10^3/uL Neut % (Auto) 72.5 (50-75) % Lymph % (Auto) 16.1 L (25-40) % [place] % (Auto) 6.9 (3-14) % Eos % (Auto) 3.8 (2-4) % Baso % (Auto) 0.7 (0-2) % Neut # (Auto) 7600 H (0991-9614) /uL Lymph # (Auto) 1700 (9428-6398) /uL [place] # (Auto) 700 (0-900) /uL Eos # (Auto) 400 (0-450) /uL Baso # (Auto) 100 (0-100) /uL Sodium 140 (137-145) mmol/L Potassium 4.2 (3.4-5.1) mmol/L Chloride 106 (98-107) mmol/L Carbon Dioxide 26 (22-32) mmol/L BUN 16 (7-17) mg/dL Creatinine 0.92 (0.52-1.04) mg/dL Estimated GFR > 60 (>60) mL/min BUN/Creatinine Ratio 17.4 (6-22) Glucose 124 H (80-110) mg/dL Calcium 9.3 (8.4-10.2) mg/dL Total Bilirubin 0.2 (0.2-1.3) mg/dL AST 26 (14-36) IU/L ALT 21 (<35) IU/L Alkaline Phosphatase 58 (38-126) U/L Total Protein 7.2 (6.3-8.2) g/dL Albumin 4.2 (3.5-5.0) g/dL Globulin 3.0 (1.7-4.1) g/dL Albumin/Globulin Ratio 1.4 (1.0-2.8) Lipase 107 (23-300) U/L Urine RBC 1-5/hpf (0-5/HPF) Urine WBC 0-1/hpf (0-5/HPF) Ur Squamous Epith Cells 0-1 /hpf (0-5/HPF) Urine Bacteria Occasional (0-1) (None) Ur Culture Indicated? Cult not indicated Vol Urine Centrifuged 10ml (spun) Urine Dip Bedside Urine Glucose Negative Bedside Urine Bilirubin - Negative Bedside Urine Ketone - Negative Urine Specific [place] 1.015 Bedside Urine Occult Blood + Bedside Urine pH 6 Bedside Urine Protein - Negative Bedside Urine Urobilinogen - Negative Bedside Urine Nitrite - Negative Bedside Urine Leukocytes - Negative Esterase Imaging Data CT scan - abdomen/pelvis: Radiologist's Impression: PROCEDURE: CT ABDOMEN PELVIS WO CON INDICATIONS: intermittent left flank pain, concern stone TECHNIQUE: Axial sections were acquired from the lung bases to the pubic symphysis. Coronal and sagittal reformats were performed. For radiation dose reduction, the following was used: automated exposure control, adjustment of mA and/or kV according to patient size. COMPARISON: None. FINDINGS: Image quality: Diagnostic. Lower Chest: No significant findings. URINARY: Right Kidney: No stones or hydronephrosis. Right Ureter: No hydroureter. Left Kidney: 4 mm nonobstructing calculus in the inferior pole and 2 mm nonobstructing calculus in the superior pole. Mild perinephric stranding. Moderate hydronephrosis. Left Ureter: 2 mm obstructing calculus at the left UVJ with moderate upstream hydroureter. Bladder: Normal wall thickness. No stones. ABDOMEN: Liver: No contour-deforming solid mass. Gallbladder: No radiopaque gallstones or wall thickening. Biliary ducts: No biliary dilation. Pancreas: No ductal dilation. Spleen: Size is within normal limits. Adrenal Glands: No adrenal nodules. Stomach and Bowel: Normal colonic caliber, without significant wall thickening. Peritoneum: No abnormal intraperitoneal fluid. No free air. Ventral Wall: No hernia. Abdominal Nodes: No enlarged retroperitoneal or mesenteric lymph nodes. Vessels: Aorta and inferior vena cava are normal in size. PELVIS: Pelvic Organs: Unremarkable. Pelvic Nodes: Unremarkable. Miscellaneous: No inguinal hernias are seen. Bones: Multilevel degenerative changes without acute vertebral body compression fracture. IMPRESSION: Left 2 mm UVJ obstructing calculus with moderate upstream hydroureteronephrosis. Additional nonobstructing left renal calculi measuring 2 and 4 mm. MDM Narrative Medical decision making narrative: 68-year-old female with a past medical history of uterine cancer s/p total hysterectomy, hypertension, hyperlipidemia, nephrolithiasis, type 2 diabetes on metformin who presents to the emergency department for left flank pain associated with nausea for 2 days. Differential diagnosis includes but is not limited to nephrolithiasis, ureterolithiasis, pyelonephritis, hydronephrosis, renal colic, pancreatitis, etc. On exam patient is in no acute distress, nontoxic appearing, pain-free at my time of examination. Her triage vital signs were significant for elevated blood pressure and heart rate at 2 18/102 and pulse of 96 however patient denies any chest pain shortness of breath and her pain and her left flank has improved. Symptoms are concerning for possible ureterolithiasis. Point of care urinalysis obtained revealed some red blood cells. We will obtain abdominal labs and CT abdomen pelvis without IV contrast for further evaluation. We will treat with gentle fluids, Zofran, Toradol. Labs reveal normal WBC count 10.5, hemoglobin 13.6 hematocrit 40.9, platelets 229. Normal electrolytes, BUN 16, creatinine 0.92, glucose 124. Normal lipase 107. UA reveals no signs of infection. CT abdomen and pelvis reveals left 2 mm UVJ obstructing calculus with moderate upstream hydroureteronephrosis. There is additional nonobstructing left renal calculi measuring 2 and 4 mm. Discussed imaging results with the patient and printed and provided her with our own copy. She has been pain-free throughout her emergency department stay. Recommended Flomax daily for the next week or until symptoms resolve, patient states she already has full prescription at home and does not need new prescription she will start taking home prescription in addition I prescribed her a few days of Toradol recommended rest, hydration, additional Tylenol, follow up with her urologist. She verbalized understanding of all information. Advised follow up with PCP for repeat blood pressure check and further management. We reviewed strict ED return precautions. She is agreeable to the plan and stable for discharge home. <Jero Allison MD - Last Filed: 05/13/24 02:58> Lab Data Labs: Lab Results 05/12/24 05/12/24 Range/Units 16:45 17:20 WBC 10.5 (4.5-11.0) X10^3/uL RBC 4.52 (4.0-5.2) X10^6/uL Hgb 13.6 (12.0-16.0) g/dL Hct 40.9 (36-46) % MCV 90.5 (80-100) fL MCH 30.1 (26-34) PG MCHC 33.2 (30-36) % RDW 13.5 (11.6-14.8) % Plt Count 229 (150-400) X10^3/uL Neut % (Auto) 72.5 (50-75) % Lymph % (Auto) 16.1 L (25-40) % [place] % (Auto) 6.9 (3-14) % Eos % (Auto) 3.8 (2-4) % Baso % (Auto) 0.7 (0-2) % Neut # (Auto) 7600 H (6674-8729) /uL Lymph # (Auto) 1700 (8515-3854) /uL [place] # (Auto) 700 (0-900) /uL Eos # (Auto) 400 (0-450) /uL Baso # (Auto) 100 (0-100) /uL Sodium 140 (137-145) mmol/L Potassium 4.2 (3.4-5.1) mmol/L Chloride 106 (98-107) mmol/L Carbon Dioxide 26 (22-32) mmol/L BUN 16 (7-17) mg/dL Creatinine 0.92 (0.52-1.04) mg/dL Estimated GFR > 60 (>60) mL/min BUN/Creatinine Ratio 17.4 (6-22) Glucose 124 H (80-110) mg/dL Calcium 9.3 (8.4-10.2) mg/dL Total Bilirubin 0.2 (0.2-1.3) mg/dL AST 26 (14-36) IU/L ALT 21 (<35) IU/L Alkaline Phosphatase 58 (38-126) U/L Total Protein 7.2 (6.3-8.2) g/dL Albumin 4.2 (3.5-5.0) g/dL Globulin 3.0 (1.7-4.1) g/dL Albumin/Globulin Ratio 1.4 (1.0-2.8) Lipase 107 (23-300) U/L Urine RBC 1-5/hpf (0-5/HPF) Urine WBC 0-1/hpf (0-5/HPF) Ur Squamous Epith Cells 0-1 /hpf (0-5/HPF) Urine Bacteria Occasional (0-1) (None) Ur Culture Indicated? Cult not indicated Vol Urine Centrifuged 10ml (spun) Urine Dip Bedside Urine Glucose Negative Bedside Urine Bilirubin - Negative Bedside Urine Ketone - Negative Urine Specific [place] 1.015 Bedside Urine Occult Blood + Bedside Urine pH 6 Bedside Urine Protein - Negative Bedside Urine Urobilinogen - Negative Bedside Urine Nitrite - Negative Bedside Urine Leukocytes - Negative Esterase Discharge Plan Departure Patient Disposition: Home Clinical Impression: Calculus of ureterovesical junction (UVJ), Hydroureter on left, Hydronephrosis, left Instructions: DI for Kidney Stones Activity Restrictions/Additional Instructions: Dear Ms. Daly, Today you were evaluated in the emergency department for left flank pain and found to have a kidney stone on the left side. This kidney stone is 2 mm and is causing some swelling of the left kidney and ureter. I would like you to take Flomax once daily for at least the next week, use the prescribed pain medication and nausea medicine if needed, and follow up with your urologist. Please return to the emergency department if you develop any new or worsening symptoms such as fever, severe pain, persistent vomiting or any other concerns. You may take ibuprofen and Tylenol if needed tonight but do not take ibuprofen and Toradol together. Please take Ibuprofen (Motrin/Advil) or Acetaminophen (Tylenol) for pain. These are available over the counter. You may take Ibuprofen 600 mg every 8 hours with food for pain. You may also take Acetaminophen 650 mg every 4-6 hours for pain. Do not exceed 3000 mg of Tylenol a day as this can cause liver damage. Do not drink alcohol with either of these medications. Please follow up with your primary care doctor within the next 2-3 days for ER follow-up. (If you do not have a PCP you can call [phone]. ?to schedule an appointment with an [facility] Primary Care Provider) IF YOU DEVELOP ANY NEW OR WORSENING SYMPTOMS, RETURN TO THE ER! Please read the attached instructions, they highlight more specific treatments and interventions for you at home. Thank you for letting me participate in your care, Eileen Loco PA-C Prescriptions: New ketorolac 10 mg tablet 10 mg PO Q6H PRN (Reason: pain) Qty: 15 0RF Rx Instructions: maximum total duration of 5 days from all oral, intranasal, or parenteral formulations ondansetron 4 mg tablet,disintegrating 4 mg PO Q8H PRN (Reason: nausea and vomiting) Qty: 15 0RF No Action fosfomycin tromethamine 3 gram packet 3 g PO ONCE Qty: 1 0RF (DME) blood-glucose meter Misc See Rx Instructions .ROUTE .MEDSUPPLY Qty: 1 0RF Rx Instructions: Use to test blood glucose BID ezetimibe 10 mg tablet 10 mg PO DAILY Qty: 90 3RF Rx Instructions: Take 1 tab daily metformin 500 mg tablet extended release 24 hr See Rx Instructions PO .COMPLEX Qty: 360 3RF Rx Instructions: Take (2) 500mg tabs am and pm with food (DME) Blood Glucose Test Strip See Rx Instructions .ROUTE .MEDSUPPLY Qty: 200 3RF Rx Instructions: Use to test blood glucose twice daily (DME) lancets [FreeStyle Lancets] 28 gauge misc See Rx Instructions .ROUTE .COMPLEX Qty: 100 3RF Dose Instruction: USE TO TEST BLOOD GLUCOSE TWO TIMES DAILY Rx Instructions: USE TO TEST BLOOD GLUCOSE TWO TIMES DAILY metoprolol succinate 50 mg tablet extended release 24 hr 50 mg PO DAILY Qty: 90 3RF irbesartan 300 mg tablet 300 mg PO DAILY tamsulosin 0.4 mg capsule 0.4 mg PO DAILY PRN (Reason: Kidney stone) Qty: 30 0RF cetirizine [Zyrtec] 10 mg tablet 10 mg PO DAILY PRN omega-3 fatty acids 1,000 mg capsule 1,000 mg PO BID Qty: 180 3RF (DME) Blood pressure cuff - OMRON upper arm cuff See Rx Instructions .Route .MEDSUPPLY Qty: 1 0RF Rx Instructions: Take blood pressure daily goal is under 130/80 consistently as a diabetic albuterol sulfate 90 mcg/actuation HFA aerosol inhaler 2 puff inhalation Q4-6H PRN (Reason: shortness of breath or wheezing) Qty: 8.5 3RF estradiol 0.01 % (0.1 mg/gram) cream 1 g vaginal 2XW PRN (Reason: vulvovaginal irritation) Qty: 42.5 0RF Referrals: Diaz Conroy DO [Physician] - (L 2mm UVJ stone, moderate hydroureteronephrosis.) Lavern Gramajo DO [Primary Care Provider] - Stand Alone Forms: Patient Portal/API/Survey ED Sign-out <Jero Allison MD - Last Filed: 05/13/24 02:58> Sign Out Provider Sign Out Attestation: I was immediately available in the department for consultation. This documentation has been reviewed and I agree with assessment and plan. Supervised by Jero Allison MD
[2024-05-12 17:33] LABS: Add Manual Diff / Slide Review NO; Basophils Absolute Auto 100 /uL (0-100); Basophils Percent Auto 0.7 % (0-2); Eosinophils Absolute Auto 400 /uL (0-450); Eosinophils Percent Auto 3.8 % (2-4); Hematocrit 40.9 % (36-46); Hemoglobin 13.6 g/dL (12.0-16.0); Lymphocytes Absolute Auto 1700 /uL (1100-4500); Lymphocytes Percent Auto 16.1 % (25-40); Mean Corpuscular HGB Conc 33.2 % (30-36); Mean Corpuscular Hemoglobin 30.1 PG (26-34); Mean Corpuscular Volume 90.5 fL (80-100); Monocytes Absolute Auto 700 /uL (0-900); Monocytes Percent Auto 6.9 % (3-14); Neutrophils Absolute Auto 7600 /uL (1500-7000); Neutrophils Percent Auto 72.5 % (50-75); Platelet Count 229 X10^3/uL (150-400); Red Blood Cell Count 4.52 X10^6/uL (4.0-5.2); Red Cell Distribution Width 13.5 % (11.6-14.8); White Blood Cell Count 10.5 X10^3/uL (4.5-11.0)
[2024-05-12 17:45] LABS: Alanine Aminotransferase 21 IU/L (<35); Albumin 4.2 g/dL (3.5-5.0); Albumin Globulin Ratio 1.4 (1.0-2.8); Alkaline Phosphatase 58 U/L (38-126); Aspartate Aminotransferase 26 IU/L (14-36); BUN Creatinine Ratio 17.4 (6-22); Bilirubin Total 0.2 mg/dL (0.2-1.3); Blood Urea Nitrogen 16 mg/dL (7-17); Calcium 9.3 mg/dL (8.4-10.2); Carbon Dioxide 26 mmol/L (22-32); Chloride 106 mmol/L (98-107); Estimated Glomerular Filt Rate > 60 mL/min (>60); Glucose 124 mg/dL (80-110); HEMOLYSIS < 15 (0-50); Lipase 107 U/L (23-300); Potassium 4.2 mmol/L (3.4-5.1); Sodium 140 mmol/L (137-145); Total Protein 7.2 g/dL (6.3-8.2)
--- NOTE | 2024-05-12 17:49 | DI.CT.S_ITS ---
PROCEDURE: CT ABDOMEN PELVIS WO CON INDICATIONS: intermittent left flank pain, concern stone TECHNIQUE: Axial sections were acquired from the lung bases to the pubic symphysis. Coronal and sagittal reformats were performed. For radiation dose reduction, the following was used: automated exposure control, adjustment of mA and/or kV according to patient size. COMPARISON: None. FINDINGS: Image quality: Diagnostic. Lower Chest: No significant findings. URINARY: Right Kidney: No stones or hydronephrosis. Right Ureter: No hydroureter. Left Kidney: 4 mm nonobstructing calculus in the inferior pole and 2 mm nonobstructing calculus in the superior pole. Mild perinephric stranding. Moderate hydronephrosis. Left Ureter: 2 mm obstructing calculus at the left UVJ with moderate upstream hydroureter. Bladder: Normal wall thickness. No stones. ABDOMEN: Liver: No contour-deforming solid mass. Gallbladder: No radiopaque gallstones or wall thickening. Biliary ducts: No biliary dilation. Pancreas: No ductal dilation. Spleen: Size is within normal limits. Adrenal Glands: No adrenal nodules. Stomach and Bowel: Normal colonic caliber, without significant wall thickening. Peritoneum: No abnormal intraperitoneal fluid. No free air. Ventral Wall: No hernia. Abdominal Nodes: No enlarged retroperitoneal or mesenteric lymph nodes. Vessels: Aorta and inferior vena cava are normal in size. PELVIS: Pelvic Organs: Unremarkable. Pelvic Nodes: Unremarkable. Miscellaneous: No inguinal hernias are seen. Bones: Multilevel degenerative changes without acute vertebral body compression fracture. IMPRESSION: Left 2 mm UVJ obstructing calculus with moderate upstream hydroureteronephrosis. Additional nonobstructing left renal calculi measuring 2 and 4 mm. Approved by: Yanet Bhatia M.D.,Ph.D. on 05/12/2024 at 19:55
[2024-05-12] MEDS: KETOROLAC 30 MG/ML VIAL 15 MG IV (17:55)
[2024-05-12] MEDS: ONDANSETRON 4 MG/2 ML INJ IV (17:56)
[2024-05-12] MEDS: SODIUM CHLORIDE 0.9% 1,000 ML 500 ML IV (17:56)
--- NOTE | 2024-05-12 18:03 | PC.NURSE ---
Patient left department with transportation technician.
[2024-05-12 18:48] VITALS: BP 182/84; PULSE 55; RESP 18; TEMP 36.4; O2SAT 96
[2024-05-12 20:32] VITALS: BP 220/99; PULSE 57; RESP 17; TEMP 36.3; O2SAT 98
== END 2024-05-12 20:34 | disposition home or self-care (01) ==
PROVIDERS: Student in an Organized Health Care Education/Training Program; Emergency Provider Physician Assistant; PCP Family Medicine
DX: N20.1 Calculus of ureter (principal); N13.30 Unspecified hydronephrosis; N13.4 Hydroureter; R11.0 Nausea; Z90.710 Acquired absence of both cervix and uterus
CPT/HCPCS: 36415; 74176; 80053; 81003; 81015; 83690; 85025; 96361; 96374; 96375; 99284; J1885; J2405

== ENCOUNTER 2024-08-07 13:41 | Emergency (ER) | payer MEDICARE, OTHER, SELFPAY ==
[2024-08-07] VITALS (26 sets, daily range): BP systolic 171–246; BP diastolic 82–107; PULSE 64–89; RESP 16–32; TEMP 36.9–37; O2SAT 92–98; BMI 34.7
--- NOTE | 2024-08-07 14:28 | DI.RAD.S_ITS ---
PROCEDURE: XR CHEST 2V INDICATIONS: cough TECHNIQUE: 2 views of the chest were acquired. COMPARISON: [facility], CR, XR CHEST 2V, 01/20/2023, 12:29. [facility], CR, XR CHEST 2V, 02/17/2022, 12:30. FINDINGS: Surgical changes and devices: None. Lungs and pleura: Lungs are clear. No pleural effusions or pneumothorax. Peribronchial cuffing. Mediastinum: Mediastinal contours are normal. Heart size is normal. Bones and chest wall: No suspicious bony abnormalities. Soft tissues appear unremarkable. IMPRESSION: Peribronchial cuffing, typically indicating infectious or inflammatory bronchitis. Dictated by: Naseem Marina M.D. on 08/07/2024 at 15:04 Approved by: Naseem Marina M.D. on 08/07/2024 at 15:04
--- NOTE | 2024-08-07 14:28 | EKG_ITS ---
[address] [address] Test Date: 2024-08-07 Pat Name: Diamante Daly Department: Room: Gender: Female Film Technician: AMADA : 1955 Requested By: Order Number: [id number] Reading MD: Dorian Barrera Measurements Intervals [place] Rate: 67 P: 90 MT: 164 QRS: 3 QRSD: 92 T: 25 QT: 396 QTc: 418 Interpretive Statements Normal sinus rhythm Minimal voltage criteria for LVH, may be normal variant ( [place] product ) Electronically Signed On 08-10-2024 16:17:47 PDT by Dorian Barrera
[2024-08-07] MEDS: ALBUTEROL 2.5 MG/3 ML NEB (ADULT) INH (15:04)
--- NOTE | 2024-08-07 15:24 | ED.GENADULT ---
HPI - General Adult General Chief complaint: Upper Respiratory Symptoms Stated complaint: Per patient possible Pneumonia x 5 days Time Seen by Provider: 08/07/24 14:29 Source: patient, RN notes reviewed and old records reviewed Mode of arrival: Ambulatory Limitations: no limitations History of Present Illness HPI narrative: 68-year-old female history of kidney stones, hypertension, diabetes, dyslipidemia not on any aspirin or thinners, family history of aortic dissections in mom and brother patient presents with complaint of gradually cough and wheezing patient notes it has been hard to lay flat the past several days. She was had a productive cough that is had clear sputum no blood. She denies any chest pain or pressure. She felt very wheezy. She denies fevers or chills. Denies any nausea or vomiting. No issues with bowel movements or urination. No new swelling in extremities. She has been hoarse with her voice. Notes that after she had COVID twice has had increased shortness of breath with the exertion was prescribed albuterol that she uses with exercise but has not had a PFT. She notes she has been hypertensive they changed her blood pressure medications because ?they stopped working? patient is currently on metoprolol and your losartan, metformin, Zetia, rosuvastatin weekly. Patient states she had hysterectomy with bilateral oophorectomy 8 years ago, x2, appendectomy and tonsillectomy. Family history significant for both her mother and brother have had aortic dissections, her other brother of coronary artery disease at age 48. Related Data Home Medications Medication Instructions Recorded Confirmed cetirizine 10 mg tablet (Zyrtec) 10 mg PO DAILY PRN 08/23/21 03/11/24 irbesartan 300 mg tablet 300 mg PO DAILY 02/23/24 03/11/24 Previous Rx's Medication Instructions Recorded blood-glucose meter #1 ea 10/22/21 Blood pressure cuff - OMRON upper #1 ea 02/17/22 arm cuff omega-3 fatty acids 1,000 mg 1,000 mg PO BID #180 caps 02/17/22 capsule albuterol sulfate 90 mcg/actuation 2 puff inhalation Q4-6H PRN 01/14/23 aerosol inhaler shortness of breath or wheezing #8.5 grams ezetimibe 10 mg tablet 10 mg PO DAILY #90 tabs 10/12/23 metformin 500 mg tablet,extended See Rx Instructions PO .COMPLEX 10/26/23 release 24 hr #360 tabs blood sugar diagnostic (Blood #200 ea 10/27/23 Glucose Test strips) tamsulosin 0.4 mg capsule 0.4 mg PO DAILY PRN Kidney stone 02/23/24 #30 caps estradiol 0.01% (0.1 mg/gram) 1 g vaginal 2XW PRN vulvovaginal 03/11/24 vaginal cream irritation #42.5 grams fosfomycin tromethamine 3 gram 3 g PO ONCE #1 ea 04/16/24 oral packet metoprolol succinate 50 mg 50 mg PO DAILY #90 tabs 04/21/24 tablet,extended release 24 hr ketorolac 10 mg tablet 10 mg PO Q6H PRN pain #15 tabs 05/12/24 ondansetron 4 mg disintegrating 4 mg PO Q8H PRN nausea and 05/12/24 tablet vomiting #15 tabs lancets 28 gauge (FreeStyle #100 ea 07/19/24 Lancets) metoprolol succinate 25 mg 25 mg PO .at night #30 tabs 08/07/24 tablet,extended release 24 hr prednisone 10 mg tablet 10 mg PO DAILY #30 tabs 08/07/24 Allergies Allergy/AdvReac Type Severity Reaction Status Date / Time amlodipine AdvReac Intermediate forgetfulln Verified 08/07/24 13:52 ess atorvastatin AdvReac Intermediate memory loss Verified 08/07/24 13:52 latex AdvReac Intermediate rash Verified 08/07/24 13:52 Opioids - Morphine Analogues AdvReac Hives Verified 08/07/24 13:52 Review of Systems Review of Systems ROS Unobtainable: All systems reviewed & are unremarkable except as noted in HPI and below Patient History Medical History Frequent UTI Breast mass, right Multiple allergies Environmental allergies Type 2 diabetes mellitus with hyperlipidemia History of uterine cancer Changes in vision Left knee pain URI (upper respiratory infection) Hyperlipidemia Vision disorder Plantar warts (~1963) Osteoarthritis (~2008) Seasonal allergies Post traumatic stress disorder (PTSD) (~1982) Anxiety Transient ischemic attack (~2007) Shoulder pain Fractures Foot pain Carpal tunnel syndrome Rubella (~1953) Measles (~1959) Chicken pox (~1961) Meniere's disease Vertigo (~1982) Tinnitus (~1996) Recurrent sinusitis History of recurrent ear infection (~1953) Hearing loss (~1996) Painful menstrual periods Ovarian cyst Irregular menstrual cycle Herpes (~1985) Abnormal Pap smear of cervix (~2015) History of urinary incontinence Kidney stones (~2008) Hepatitis B (~1974) Hemorrhoid Borderline diabetes (~2011) Hypertension (~1989) Uterine cancer (~2015) Surgical History Hx of tubal ligation Hx of breast biopsy Anesthesia History of hysterectomy (~2015) History of section History of appendectomy (~1967) History of tonsillectomy (~1969) Family History Father History of heart disease Hyperlipidemia Hypertension Stroke Coronary artery disease Diabetes mellitus Evaluation of hearing impairment Mother Diabetes mellitus History of heart disease Hypertension Hyperlipidemia Stroke Coronary artery disease Brother History of heart disease Hyperlipidemia Hypertension Coronary artery disease Kidney stones Brother Pacemaker Bipolar disorder History of heart disease Hyperlipidemia Hypertension Mental health problem Grandfather Stroke Grandmother Stroke Cancer Grandfather Stroke Grandmother History of heart disease Son Migraines Social History marital status: number of children: 3 alcohol intake: current eating out: rarely or never Type(s) of exercise: walking, aerobic, advised to exercise at least 150 min/week (moderate intensity aerobic), advised to perform resistance training at least 2x/week and additional frequency: 1-2 times per week duration: 45-60 minutes/day Smoking Status: Never smoker alcohol intake frequency: holidays/special occasions only Exam Narrative Exam Narrative: GEN: well nourished, well appearing female, alert and oriented x 3, patient appears to be in mild distress. HEENT: Atraumatic, pupils are equal round reactive to light, extraocular movements are intact, mild nasal rhinorrhea, TMs are clear with no fluid, there is no conjunctival pallor. Throat is clear without any exudates, erythema, tonsillar enlargement or uvular deviation, patient was hoarse. No muffled voice. No difficulty with secretions. HEART: Regular rate and rhythm without murmur, clicks, rubs. pulses are equal in bilateral upper and lower extremities LUNGS:Lungs wheeze bilaterally, good air movement, no crackles, no tachypnea accessory muscle use. Chest moves symmetrically. Patient's speaks in full sentences. This was after albuterol neb. ABD:bowel sounds normal, soft, non-tender, no guarding, rebound, rigidity, no masses noted, no hepatosplenomegaly, no pulsatile bruit or mass :No CVA tenderness MSCL: muscles strength 5/5 upper and lower extremities, full range of motion, normal gait NEURO:CN 2-12 intact, sensation normal Initial Vital Signs Initial Vital Signs: Vital Signs Pulse Rate 72 08/07/24 13:48 Blood Pressure 236/107 H 08/07/24 13:48 Pulse Oximetry 97 08/07/24 13:48 Course Orders Ordered: Discontinued Medications Albuterol (Albuterol 2.5 Mg/3 Ml Neb (Adult)) 2.5 mg INH NOW ONE Stop: 08/07/24 15:03 Last Admin: 08/07/24 15:04 Dose: 2.5 mg Documented By: MARIA GUADALUPE Albuterol (Albuterol 2.5 Mg/3 Ml Neb (Adult)) 10 mg INH NOW ONE Stop: 08/07/24 17:20 Last Admin: 08/07/24 17:26 Dose: 10 mg Documented By: MAGDALENE Albuterol (Albuterol Hfa Prepack) 1 box MISC DIRECTED ONE Stop: 08/07/24 19:53 Last Admin: 08/07/24 20:07 Dose: 1 box Documented By: HIEU Sodium Chloride (Normal Saline 0.9%) 1,000 mls @ 1,000 mls/hr IV BOLUS ONE Stop: 08/07/24 16:37 Last Infusion: 08/07/24 19:28 Dose: Infused Documented By: Admin: 08/07/24 16:04 Dose: 1,000 mls/hr Documented By: ANICETO Methylprednisolone (Methylprednisolone 125 Mg/2 Ml Vial) 125 mg IV NOW ONE Stop: 08/07/24 15:39 Last Admin: 08/07/24 16:04 Dose: 125 mg Documented By: ANICETO Metoprolol Tartrate (Metoprolol Ir 25 Mg Tablet) 25 mg PO NOW ONE Stop: 08/07/24 15:58 Last Admin: 08/07/24 16:04 Dose: 25 mg Documented By: ANICETO Vital Signs Vital signs: Vital Signs - 8 hr 08/07/24 13:48 08/07/24 13:48 08/07/24 13:49 Temperature Pulse Rate 72 74 Respiratory Rate Blood Pressure 236/107 H Pulse Oximetry 97 96 Oxygen Delivery Method Oxygen Flow Rate Fraction of Inspired Oxygen 08/07/24 13:50 08/07/24 13:52 08/07/24 14:16 Temperature 98.6 F Pulse Rate 74 86 Respiratory Rate 17 Blood Pressure 236/107 H 220/96 H Pulse Oximetry 96 96 Oxygen Delivery Method Room Air Room Air Oxygen Flow Rate Fraction of Inspired Oxygen 08/07/24 14:37 08/07/24 14:40 08/07/24 14:40 Temperature Pulse Rate 74 66 Respiratory Rate Blood Pressure 240/101 H Pulse Oximetry 98 97 Oxygen Delivery Method Oxygen Flow Rate Fraction of Inspired Oxygen 08/07/24 15:00 08/07/24 15:05 08/07/24 15:30 Temperature Pulse Rate 66 64 72 Respiratory Rate 25 H 20 24 Blood Pressure Pulse Oximetry 95 97 96 Oxygen Delivery Method Room Air Oxygen Flow Rate 0 Fraction of Inspired Oxygen 21 08/07/24 15:47 08/07/24 15:47 08/07/24 16:00 Temperature Pulse Rate 68 70 Respiratory Rate 24 20 Blood Pressure 222/100 H Pulse Oximetry 97 96 Oxygen Delivery Method Oxygen Flow Rate Fraction of Inspired Oxygen 08/07/24 16:01 08/07/24 16:01 08/07/24 16:26 Temperature Pulse Rate 69 Respiratory Rate 22 Blood Pressure 201/88 H 245/106 H Pulse Oximetry 96 Oxygen Delivery Method Oxygen Flow Rate Fraction of Inspired Oxygen 08/07/24 16:26 08/07/24 16:30 08/07/24 16:30 Temperature Pulse Rate 79 80 Respiratory Rate 30 H 30 H Blood Pressure 246/107 H Pulse Oximetry 97 98 Oxygen Delivery Method Oxygen Flow Rate Fraction of Inspired Oxygen 08/07/24 16:57 08/07/24 16:57 08/07/24 17:00 Temperature Pulse Rate 68 70 Respiratory Rate 22 19 Blood Pressure 198/92 H Pulse Oximetry 97 97 Oxygen Delivery Method Oxygen Flow Rate Fraction of Inspired Oxygen 08/07/24 17:26 08/07/24 17:30 08/07/24 17:31 Temperature Pulse Rate 83 65 67 Respiratory Rate 18 32 H 31 H Blood Pressure Pulse Oximetry 97 96 95 Oxygen Delivery Method Room Air Oxygen Flow Rate Fraction of Inspired Oxygen 08/07/24 17:31 Temperature Pulse Rate Respiratory Rate Blood Pressure 206/98 H Pulse Oximetry Oxygen Delivery Method Oxygen Flow Rate Fraction of Inspired Oxygen Medical Decision Making Lab Data 08/07/24 15:54 08/07/24 15:54 Labs: Lab Results 08/07/24 Range/Units 15:54 WBC 11.1 H (4.5-11.0) X10^3/uL RBC 4.66 (4.0-5.2) X10^6/uL Hgb 14.1 (12.0-16.0) g/dL Hct 41.6 (36-46) % MCV 89.3 (80-100) fL MCH 30.2 (26-34) PG MCHC 33.8 (30-36) % RDW 14.0 (11.6-14.8) % Plt Count 242 (150-400) X10^3/uL Neut % (Auto) 42.8 L (50-75) % Lymph % (Auto) 35.5 (25-40) % [place] % (Auto) 7.9 (3-14) % Eos % (Auto) 13.0 H (2-4) % Baso % (Auto) 0.8 (0-2) % Neut # (Auto) 4800 (6501-9553) /uL Lymph # (Auto) 3900 (2959-9256) /uL [place] # (Auto) 900 (0-900) /uL Eos # (Auto) 1400 H (0-450) /uL Baso # (Auto) 100 (0-100) /uL PT 10.3 (9.4-12.5) SECONDS INR 0.9 (0.9-1.3) APTT 36 (25.1-36.5) SECONDS Sodium 140 (137-145) mmol/L Potassium 4.5 (3.4-5.1) mmol/L Chloride 104 (98-107) mmol/L Carbon Dioxide 24 (22-32) mmol/L BUN 15 (7-17) mg/dL Creatinine 0.76 (0.52-1.04) mg/dL Estimated GFR > 60 (>60) mL/min BUN/Creatinine Ratio 19.7 (6-22) Glucose 89 (70-99) mg/dL Calcium 9.6 (8.4-10.2) mg/dL Total Bilirubin 0.4 (0.2-1.3) mg/dL AST 30 (14-36) IU/L ALT 25 (<35) IU/L Alkaline Phosphatase 65 (38-126) U/L Total Creatine Kinase 71 (30-135) U/L Troponin I < 0.012 (0.01-0.034) ng/mL NT-Pro-B Natriuret Pep 251 H (<125) pg/mL Total Protein 7.7 (6.3-8.2) g/dL Albumin 4.5 (3.5-5.0) g/dL Globulin 3.2 (1.7-4.1) g/dL Albumin/Globulin Ratio 1.4 (1.0-2.8) Lipase 135 (23-300) U/L Urine Dip Bedside Urine Glucose Negative Bedside Urine Bilirubin - Negative Bedside Urine Ketone - Negative Urine Specific [place] 1.010 Bedside Urine Occult Blood +/- Bedside Urine pH 6.0 Bedside Urine Protein - Negative Bedside Urine Urobilinogen - Negative Bedside Urine Nitrite - Negative Bedside Urine Leukocytes - Negative Esterase Point of care testing: Urine Dip Bedside Urine Glucose Negative Bedside Urine Bilirubin - Negative Bedside Urine Ketone - Negative Urine Specific [place] 1.010 Bedside Urine Occult Blood +/- Bedside Urine pH 6.0 Bedside Urine Protein - Negative Bedside Urine Urobilinogen - Negative Bedside Urine Nitrite - Negative Bedside Urine Leukocytes - Negative Esterase ECG Data Attestation: I personally reviewed and interpreted this ECG as follows: Prior ECG tracings: not available for review Interpretation: Sinus rhythm rate of 67 OR 164 QRS of 92 QRS of 418, no acute ST changes appreciated. Minimal voltage criteria for LVH. No prior for comparison. [facility] Narrative Medical decision making narrative: Chest x-ray shows peribronchial cuffing typically indicating infectious or inflammatory bronchitis. EKG shows sinus rhythm rate of 67 minimal voltage criteria for LVH. Labs white count of 11 hemoglobin of 14 platelets 242. Coags are appropriate electrolytes are appropriate BUN creatinine are normal, troponins less than 0.012 with a BNP of 251. CT angio chest and pelvis shows no evidence of acute aortic syndrome or aortic aneurysm, fecal debris with a small-bowel usually indicating small intestinal bacterial overgrowth versus slow transit. Patient did give a small sputum sample, was sent to lab for culture. Patient is quite hypertensive here today she states she was normally quite hypertensive 220s to 40s with a diastolic above 100 fairly consistently. Patient has been taking her blood pressure medication also has a strong family history of aortic dissection with her mom and brother.. Discussed additional workup. I think patient's symptoms from today are most likely from bronchitis as her chest x-ray and exam seem most consistent but with her hypertension concern for end-organ disease and/or aortic syndrome is also concerning with her family history. Patient is agreeable we will obtain labs and CT angio. CT angio does not show any changes to the aorta. Albuterol, Solu-Medrol, metoprolol: Patient had improvement in wheezing but while being here in the department developed some additional was given additional albuterol. Patient's blood pressure I had some improvement with the oral metoprolol. 1835 Rechecked after repeat albuterol patient's much clear but we will monitor for little bit longer to make sure she does not become tight again. Blood pressure is 189 systolic in the room. Patient signed out to Dr. Ayers while awaiting rechecked after completing albuterol and for recheck of blood pressure. Discharge Plan Departure Patient Disposition: Home Clinical Impression: Bronchitis, Hypertension Instructions: DI for Acute Bronchitis Activity Restrictions/Additional Instructions: Follow up with physician for recheck shortly. Your blood pressure today was quite elevated if it is consistently elevated like this with the family history of aortic dissection that is very concerning. Your workup today did show some viral changes on your chest x-ray, does not can not combination with your wheezing consistent with a bronchitis. Take oral steroids until completed. Can use albuterol 4-8 puffs every 4-6 hours as needed. Use with the spacer provided. Prescription sent to Continue your metoprolol once in the morning and take a half tablet in the evening. Please return for new or worsening symptoms, new chest pain, increasing shortness of breath, coughing up blood, lightheadedness or passing out, fevers, new swelling in extremities or other new or concerning changes. Prescriptions: New prednisone 10 mg tablet 10 mg PO DAILY Qty: 30 0RF Rx Instructions: day 1-3: 40 mg once a day day 4-6: 30 mg once a day day 7-9: 20 mg once a day day 10-12: 10 mg once a day metoprolol succinate 25 mg tablet extended release 24 hr 25 mg PO .at night Qty: 30 0RF No Action fosfomycin tromethamine 3 gram packet 3 g PO ONCE Qty: 1 0RF (DME) blood-glucose meter Misc See Rx Instructions .ROUTE .MEDSUPPLY Qty: 1 0RF Rx Instructions: Use to test blood glucose BID ezetimibe 10 mg tablet 10 mg PO DAILY Qty: 90 3RF Rx Instructions: Take 1 tab daily metformin 500 mg tablet extended release 24 hr See Rx Instructions PO .COMPLEX Qty: 360 3RF Rx Instructions: Take (2) 500mg tabs am and pm with food (DME) Blood Glucose Test Strip See Rx Instructions .ROUTE .MEDSUPPLY Qty: 200 3RF Rx Instructions: Use to test blood glucose twice daily metoprolol succinate 50 mg tablet extended release 24 hr 50 mg PO DAILY Qty: 90 3RF (DME) lancets [FreeStyle Lancets] 28 gauge misc See Rx Instructions .ROUTE .COMPLEX Qty: 100 3RF Dose Instruction: USE TO TEST BLOOD GLUCOSE TWO TIMES DAILY Rx Instructions: USE TO TEST BLOOD GLUCOSE TWO TIMES DAILY; does not use insulin irbesartan 300 mg tablet 300 mg PO DAILY tamsulosin 0.4 mg capsule 0.4 mg PO DAILY PRN (Reason: Kidney stone) Qty: 30 0RF cetirizine [Zyrtec] 10 mg tablet 10 mg PO DAILY PRN omega-3 fatty acids 1,000 mg capsule 1,000 mg PO BID Qty: 180 3RF (DME) Blood pressure cuff - OMRON upper arm cuff See Rx Instructions .Route .MEDSUPPLY Qty: 1 0RF Rx Instructions: Take blood pressure daily goal is under 130/80 consistently as a diabetic albuterol sulfate 90 mcg/actuation HFA aerosol inhaler 2 puff inhalation Q4-6H PRN (Reason: shortness of breath or wheezing) Qty: 8.5 3RF estradiol 0.01 % (0.1 mg/gram) cream 1 g vaginal 2XW PRN (Reason: vulvovaginal irritation) Qty: 42.5 0RF ketorolac 10 mg tablet 10 mg PO Q6H PRN (Reason: pain) Qty: 15 0RF Rx Instructions: maximum total duration of 5 days from all oral, intranasal, or parenteral formulations ondansetron 4 mg tablet,disintegrating 4 mg PO Q8H PRN (Reason: nausea and vomiting) Qty: 15 0RF Referrals: Lavern Gramajo DO [Primary Care Provider] - Stand Alone Forms: Patient Portal/API/Survey
--- NOTE | 2024-08-07 15:38 | DI.CT.S_ITS ---
PROCEDURE: CT ANGIO CHEST ABDOMEN PELVIS INDICATIONS: Hypertensive, asthma, hx of aortic dissection mom/bro TECHNIQUE: Precontrast 5 mm thick sections acquired from the lung apices to the iliac crests. After the administration of intravenous contrast, 2.5 mm thick sections again acquired from the lung apices to the iliac crests. Maximum intensity projection (MIP) oblique sagittal and coronal reformats were then acquired. For radiation dose reduction, the following was used: automated exposure control. COMPARISON: None. FINDINGS: Image quality: Diagnostic. AORTA: No aortic aneurysm. No acute aortic syndrome. CHEST: Lower Neck: No enlarged lymph nodes. Thyroid: No thyroid nodules which require sonographic evaluation. Axillae: No enlarged lymph nodes. Chest Wall: Unremarkable. Lungs and Pleura: No pneumothorax or pleural effusions. No consolidation or suspicious nodules. 2.4 x 1.7 cm left pleural lipoma. Heart: Heart size is normal. No pericardial effusion. Thoracic Vessels: Pulmonary arteries demonstrate normal size. Mediastinum and [place]: No enlarged lymph nodes. Esophagus: No wall thickening. No hiatal hernia. ABDOMEN: Liver: No solid mass. Gallbladder: No radiopaque gallstones or wall thickening. Biliary ducts: No biliary dilation. Pancreas: No ductal dilation. Spleen: Size is within normal limits. Adrenal Glands: No adrenal nodules. Kidneys and Ureters: No hydronephrosis. No solid mass. No complex renal cystic lesion which requires follow up. Nonobstructing 7 x 3 mm left-sided nephrolithiasis. Stomach and Bowel: Normal colonic caliber, without significant wall thickening. Fecal debris within the small bowel. Appendix not identified, but there is no pericecal fat stranding to suggest appendicitis. Peritoneum: No abnormal intraperitoneal fluid. No free air. Ventral Wall: No hernia. Abdominal Nodes: No retroperitoneal or mesenteric adenopathy by size criteria. Vessels: Inferior vena cava is normal in size. PELVIS: Pelvic Organs: Unremarkable. Bladder: Unremarkable. Pelvic Nodes: No enlarged lymph nodes. Miscellaneous: No inguinal hernias are seen. Bones: Unremarkable. IMPRESSION: No evidence of acute aortic syndrome or aortic aneurysm. Fecal debris within the small-bowel, usually indicating small intestinal bacterial overgrowth versus slow transit. Dictated by: Naseem Marina M.D. on 08/07/2024 at 16:38 Approved by: Naseem Marina M.D. on 08/07/2024 at 16:42
[2024-08-07 16:04] LABS: Add Manual Diff / Slide Review NO; Basophils Absolute Auto 100 /uL (0-100); Basophils Percent Auto 0.8 % (0-2); Eosinophils Absolute Auto 1400 /uL (0-450); Hematocrit 41.6 % (36-46); Hemoglobin 14.1 g/dL (12.0-16.0); Lymphocytes Absolute Auto 3900 /uL (1100-4500); Lymphocytes Percent Auto 35.5 % (25-40); Mean Corpuscular HGB Conc 33.8 % (30-36); Mean Corpuscular Hemoglobin 30.2 PG (26-34); Mean Corpuscular Volume 89.3 fL (80-100); Monocytes Absolute Auto 900 /uL (0-900); Monocytes Percent Auto 7.9 % (3-14); Neutrophils Absolute Auto 4800 /uL (1500-7000); Neutrophils Percent Auto 42.8 % (50-75); Platelet Count 242 X10^3/uL (150-400); Red Blood Cell Count 4.66 X10^6/uL (4.0-5.2); White Blood Cell Count 11.1 X10^3/uL (4.5-11.0)
[2024-08-07] MEDS: METOPROLOL IR 25 MG TABLET PO (16:04)
[2024-08-07] MEDS: methylPREDNISolone 125 MG/2 ML VIAL IV (16:04)
[2024-08-07] MEDS: SODIUM CHLORIDE 0.9% 1,000 ML 1000 ML IV (16:04)
[2024-08-07 16:11] LABS: INR 0.9 (0.9-1.3); Prothrombin Time 10.3 SECONDS (9.4-12.5)
[2024-08-07 16:14] LABS: Alanine Aminotransferase 25 IU/L (<35); Albumin 4.5 g/dL (3.5-5.0); Albumin Globulin Ratio 1.4 (1.0-2.8); Alkaline Phosphatase 65 U/L (38-126); Aspartate Aminotransferase 30 IU/L (14-36); BUN Creatinine Ratio 19.7 (6-22); Bilirubin Total 0.4 mg/dL (0.2-1.3); Blood Urea Nitrogen 15 mg/dL (7-17); Calcium 9.6 mg/dL (8.4-10.2); Carbon Dioxide 24 mmol/L (22-32); Chloride 104 mmol/L (98-107); Creatine Kinase 71 U/L (30-135); Estimated Glomerular Filt Rate > 60 mL/min (>60); Globulin 3.2 g/dL (1.7-4.1); Glucose 89 mg/dL (70-99); HEMOLYSIS 44 (0-50); Lipase 135 U/L (23-300); PTT Partial Thromboplastin Tim 36 SECONDS (25.1-36.5); Potassium 4.5 mmol/L (3.4-5.1); Sodium 140 mmol/L (137-145); Total Protein 7.7 g/dL (6.3-8.2)
[2024-08-07 16:26] LABS: NT-proBNP (BNP-Adult 18+) 251 pg/mL (<125); Troponin I < 0.012 ng/mL (0.01-0.034)
[2024-08-07] MEDS: ALBUTEROL 2.5 MG/3 ML NEB (ADULT) 10 MG INH (17:26)
[2024-08-07] MEDS: ALBUTEROL HFA PREPACK 1 BOX MISC (20:07)
== END 2024-08-07 20:10 | disposition home or self-care (01) ==
PROVIDERS: Emergency Medicine; Emergency Provider Emergency Medicine; PCP Family Medicine
DX: J20.9 Acute bronchitis, unspecified (principal); I10 Essential (primary) hypertension
CPT/HCPCS: 36415; 71046; 71275; 74174; 80053; 81003; 82550; 83690; 83880; 84484; 85025; 85610; 85730; 87070; 87205; 93005; 94640; 96361; 96374; 99284; J2919; J7613; Q9967

== ENCOUNTER → 2024-08-16 | Outpatient (CLI) | payer MEDICARE, OTHER, SELFPAY ==
--- NOTE | 2024-08-16 13:02 | DI.MG.S_ITS ---
MM screening mammo BI: 08/16/2024. BI-RADS: 1 CLINICAL: 68-year old female for bilateral screening mammogram. Tyrer-Cuzick lifetime risk of 7.1%. No personal or first-degree family history of breast cancer. Current reported family history of breast cancer: maternal grandmother. PRIOR EXAMS 07/08/2023, 02/11/2023, 02/07/2022, 02/01/2021, 02/18/2019. MAMMOGRAPHY TECHNIQUE: 2D and 3D (tomosynthesis) digital mammographic views obtained, with additional images as needed for full coverage. Current study was also evaluated with a Computer Aided Detection (CAD) system. DENSITY C. The breasts are heterogeneously dense, which may obscure small masses. MAMMOGRAPHY FINDINGS Bilateral: No suspicious mass, asymmetry, microcalcification, or other abnormality seen. IMPRESSION: * No evidence of malignancy. RECOMMENDATIONS Bilateral * Annual screening mammography. OVERALL ASSESSMENT CATEGORY BI-RADS-1: Negative. [employer] recommends annual screening mammography beginning at age 40 for women with average risk of breast cancer. ELECTRONICALLY SIGNED: Yanet Bhatia M.D. on 08/19/2024 at 03:38:31 PM PT Interpreting Station ID: [id number]
== END ==
LOC: MAMMO 13:02
PROVIDERS: PCP Family Medicine; Referring Provider Family Medicine; Visit Provider Family Medicine
DX: Z12.31 Encounter for screening mammogram for malignant neoplasm of breast (principal); R92.333 Mammographic heterogeneous density, bilateral breasts; Z80.3 Family history of malignant neoplasm of breast
CPT/HCPCS: 77063; 77067

== ENCOUNTER → 2024-08-24 14:35 | Outpatient (CLI) | payer MEDICARE, OTHER, SELFPAY ==
--- NOTE | 2024-08-24 14:40 | DI.ECHO.S_ITS ---
[facility] : : [address] : : [place] : : [id number] : : Phone: [phone] Echocardiogram Report + + :Name: SONYA ZIMMERMAN Study Date: 08/24/2024 Height: 62 in : :[facility] ReadingLocation: Weight: 189 lb : : Gender: Female BSA: 1.9 m2 : :: 1955 Age: 68 yrs BP: 182/75 mmHg: :Reason For Study: HYPERTENSION, DIABETES : :Ordering Physician: SHEREEN, : :LOIDA Performed By: Jai Cruz : :Referring: LOIDA REGAN : + + Interpretation Summary The left ventricle is normal in size. The left ventricular ejection fraction is normal. The ejection fraction is estimated to be 60-65%. The right ventricle is normal in size and function. There is mild mitral regurgitation. The IVC is of normal diameter and collapses greater than 50% with a sniff. This suggests a low right atrial pressure of 3 mm Hg. There is mild luminal irregularity and echogenicity in the abdominal aorta, suggestive of aortic atherosclerotic disease. BP: 182/75 mmHg Procedure: A two-dimensional transthoracic echocardiogram with color flow and Doppler was performed. The study quality was technically good. There is no prior echocardiogram noted for this patient. The patient was in normal sinus rhythm during the exam. Left Ventricle: The left ventricle is normal in size. There is normal left ventricular wall thickness. There is no thrombus. The ejection fraction is estimated to be 60-65%. The left ventricular ejection fraction is normal. There are no focal wall motion abnormalities. MV E/A: 1.2 Med Peak E' Tim: 6.5 cm/sec E/E' med: 14.1. Right Ventricle: The right ventricle is normal in size and function. Atria: The left atrium is mildly dilated. Right atrial size is normal. There is no Doppler evidence for an interatrial shunt. Mitral Valve: The mitral valve leaflets are mildly calcified. There is mild mitral regurgitation. Aortic Valve: The aortic valve is trileaflet. The aortic valve opens well. There is no aortic valve stenosis. No aortic regurgitation is present. Tricuspid Valve: The tricuspid valve leaflets are thin and pliable. There is trace tricuspid regurgitation. Pulmonary artery pressures cannot be estimated because of the lack of a measurable TR jet velocity. Pulmonic Valve: The pulmonic valve is not well visualized. There is trace pulmonic regurgitation. Great Vessels: The aortic root is normal size. The dimensions of the ascending aorta are normal. There is mild luminal irregularity and echogenicity in the abdominal aorta, suggestive of aortic atherosclerotic disease. The pulmonary artery is normal size. The IVC is of normal diameter and collapses greater than 50% with a sniff. This suggests a low right atrial pressure of 3 mm Hg. Pericardium/ Pleura There is no pericardial effusion. There is no pleural effusion. MMode/2D Measurements & Calculations LVIDd: 5.1 cm LVOT diam: 1.9 cm LVIDs: 3.2 cm Ao root diam: 2.9 cm FS: 36.1 % asc Aorta Diam: 3.2 cm EPSS: 0.91 cm IVSd: 0.84 cm LVPWd: 0.91 cm LV napier. diameter/BSA (cm/m^2): 2.7 LV sys. diameter/BSA (cm/m^2): 1.7 LA A2 area: 21.6 cm2 RA long axis: 4.6 cm LA A4 area: 19.6 cm2 RA area: 13.1 cm2 LA length (vol): 5.0 cm RA vol: 32.0 ml LA vol: 71.7 ml RA : 17.1 ml/m2 LA vol index: 38.4 ml/m2 IVC diam: 1.9 cm RVD1 (basal): 2.7 cm RVD2 (mid): 2.3 cm TAPSE: 2.7 cm Doppler Measurements & Calculations Ao V2 max: 155.5 cm/sec LVOT Max Tim: 104.3 cm/sec Ao V2 mean: 97.9 cm/sec LV V1 max P.4 mmHg Ao max P.7 mmHg LV V1 VTI: 24.7 cm Ao mean P.6 mmHg KOLE(I,D): 2.2 cm2 Ao V2 VTI: 32.4 cm KOLE(V,D): 1.9 cm2 sev ratio: 0.76 KOLE indexed to BSA (cm^2/m^2): 1.2 MV E max tim: 91.8 cm/sec PA V2 max: 96.3 cm/sec MV A max tim: 77.2 cm/sec PA V2 mean: 71.6 cm/sec MV E/A: 1.2 PA mean P.2 mmHg Med Peak E' Tim: 6.5 cm/sec PA pr(Accel): 43.0 mmHg E/E' med: 14.1 Lat Peak E' Tim: 5.5 cm/sec E/E' lat: 16.6 E/e' average: 15.4 MV dec time: 0.18 sec SV(OT): 71.4 ml Reading Physician:11:21 AM
== END ==
LOC: ECHO 14:38
PROVIDERS: PCP Family Medicine; Referring Provider Family Medicine; Visit Provider Family Medicine
DX: I34.0 Nonrheumatic mitral (valve) insufficiency (principal); I10 Essential (primary) hypertension; E11.69 Type 2 diabetes mellitus with other specified complication; E78.5 Hyperlipidemia, unspecified; I1A.0 Resistant hypertension; Z82.49 Family history of ischemic heart disease and other diseases of the circulatory system
CPT/HCPCS: 93306

== ENCOUNTER → 2025-02-03 08:29 | Outpatient (CLI) | payer MEDICARE, OTHER, SELFPAY ==
[2025-02-03 09:13] LABS: Add Manual Diff / Slide Review NO; Hematocrit 40.9 % (36-46); Hemoglobin 13.7 g/dL (12.0-16.0); Lymphocytes Absolute Auto 1800 /uL (1100-4500); Mean Corpuscular HGB Conc 33.5 % (30-36); Mean Corpuscular Hemoglobin 30.2 PG (26-34); Mean Corpuscular Volume 90.1 fL (80-100); Platelet Count 219 X10^3/uL (150-400)
[2025-02-03 09:25] LABS: Hemoglobin A1C% w Est Avg Glu 6.4 % (4.0-6.0)
[2025-02-03 09:34] LABS: Alanine Aminotransferase 19 IU/L (<35); Albumin 4.4 g/dL (3.5-5.0); Albumin Globulin Ratio 1.8 (1.0-2.8); Alkaline Phosphatase 58 U/L (38-126); Blood Urea Nitrogen 14 mg/dL (7-17); Calcium 9.2 mg/dL (8.4-10.2); Carbon Dioxide 28 mmol/L (22-32); Chloride 103 mmol/L (98-107); Cholesterol 146 mg/dL (140-199); Estimated Glomerular Filt Rate > 60 mL/min (>60); Globulin 2.5 g/dL (1.7-4.1); Glucose 125 mg/dL (70-99); HDL Cholesterol 64 mg/dL (40-60); HEMOLYSIS < 15 (0-50); Potassium 4.3 mmol/L (3.4-5.1); Sodium 139 mmol/L (137-145); Total Protein 6.9 g/dL (6.3-8.2); Triglycerides 122 mg/dL (35-150)
[2025-02-03 09:49] LABS: Free T3, Triiodothyronine Free 4.08 pg/mL (2.77-5.27); Vitamin D 25 Hydroxy (D3) 25.3 ng/mL (30.0-100.0)
[2025-02-03 10:08] LABS: Ferritin 19 ng/mL (11-264)
[2025-02-03 10:21] LABS: Vitamin B12 Reflex MMA if <400 208 pg/mL (239-931)
[2025-02-04 07:09] LABS: CRP, High Sensitivity 3.74 mg/L (0.00-3.00)
== END ==
PROVIDERS: Family Provider Family Medicine; PCP Family Medicine; Referring Provider Family Medicine; Visit Provider Family Medicine
DX: I10 Essential (primary) hypertension (principal); E11.69 Type 2 diabetes mellitus with other specified complication; E78.2 Mixed hyperlipidemia; E66.9 Obesity, unspecified; R41.3 Other amnesia; E78.5 Hyperlipidemia, unspecified; E66.811 Obesity, class 1; E88.810 Metabolic syndrome; E03.9 Hypothyroidism, unspecified
CPT/HCPCS: 36415; 80053; 80061; 82306; 82607; 82728; 83036; 83090; 83921; 84481; 85025; 86140; 86376

== ENCOUNTER 2025-02-20 11:30 | Outpatient (RCR) | payer MEDICARE, OTHER, SELFPAY ==
--- NOTE | 2025-01-30 14:10 | ST.OPIE ---
Visit Care Team Role Provider Type Lavern Gramajo DO Attending Provider Physician Family Provider Primary Care Provider Referring Provider Specialty: Medical Address: [address] [place] [address], [address], [place], [address] Email: [email or web address] Speech-Language Pathology Initial Evaluation MIX TECHNICIAN Adult Cognitive Linguistic Eval Start: 01/30/25 13:43 Freq: Status: Active Protocol: Document 01/30/25 13:44 SS (Rec: 01/30/25 14:10 SS [email or web address]) Adult Cognitive Linguistic Evaluation Session Time Visit Start Time 10:45 Visit Stop Time 11:30 Total Visit Minutes 45 Visit Information Visit Number 1 Plan of Care Dates 01/30/25-05/01/25 Insurance Medicare (KX modifier required after 19 visits) Information Referral Referring Provider Dr. Lavern Gramajo Reason for Referral Cognitive concerns Setting Assessment Location Outpatient Care Visit Type Note Type Initial evaluation Next Note Type Next Note Type Treatment Note Patient Information Identification Type Name Patient History Diamante Daly is a 69-year-old female, referred for a speech/language/cognition evaluation by Dr. Gramajo due to concerns regarding cognition and word- finding. Pt reports difficulty with word-finding, particularly during social situations, and with being ? scatter brained? during IADLs, such as household tasks. Onset date of about 1-2 years ago. Pt has experienced TIA symptoms in 2008 and a brain scan revealed white spots. Transient ischemic attack in 2007 per records. Pt denied other neurological history. PMHx includes uterine cancer, anxiety, depression, HTN, HLD, T2DM, nephrolithiasis, frequent/recurrent UTI, allergies, and asthma. Pt lives alone and is independent with ADLS and IADLs. Pt states her main goal for treatment is to ?have less difficulty coming up with words when I?m talking.? Education Level Bachelors degree Occupation Status Retired. Worked in [employer]. Hearing Hearing Level Normal Vision Vision Status Impaired Comments Wears reading glasses. Previous Therapy Previous Speech- No Language Therapy Subjective Patient Report Pt reported difficulty with word retrieval in conversation. She stated she has noticed increased frequency in the past year or so. This has been increasingly frustrating to her as she typically has a ?large vocabulary? and enjoys conversing with others. Pt did report she is ?scatter brained? during IADLs, though suspects this is related to her baseline dyslexia. This is not a change from pt?s baseline. Pt denied difficulty understanding communication partners, however, endorses communication difficulty. Pt denied changes to voice or swallowing. Throughout the session, pt was able to attend to MIX TECHNICIAN questions/directions, did not have instances of anomia, and was able to respond appropriately. Mental Status Alert,Responsive,Cooperative Informal Assessment Receptive Language Yes Normal Expressive Language Yes Normal Pragmatic Language Yes Normal Speech Normal Yes Cognition Normal Yes Formal Assessment Standardized Test/ Cognitive Linguistic Quick Test (CLQT) Screener Type Administration Complete Results The Cognitive Linguistic Quick Test (CLQT) was administered to obtain information regarding the pt?s cognitive abilities. The CLQT assesses five cognitive domains: attention, memory, executive functioning, language, and visuospatial skills. A domain and severity rating is calculated. Scores fall within a WNL and severe range describing a pt?s level of impairment . Additionally, a composite severity range is calculated. A score of 3.5-4.0 is WNL, 2.5-3.4 is mild, 1.5-2.4 is moderate, and 1.0-1.4 is severe. The pt scored as follows: Attention: 199 WNL Memory: 177 WNL Executive Functions: 30 WNL Language: 34 WNL Visuospatial Skills: 94 WNL Clock Drawin WNL Composite Severity Ratin.0 WNL The pt?s self-perception of her memory/cognitive- communication was also measured using a visual analogue scale; Informal observation of cognitive-communication abilities were taken throughout the assessment and are included in the overall impressions. Visual Analogue Scale Research shows that how a person feels about their cognitive-communication can impact how their cognitive-communication works. A visual analogue scale was utilized to assess the pt?s self-perception of cognitive-communication at this time. The scale was numbered from 1-10, with 10 being ?memory/cognitive- communication before noticing changes? and 1 being ? unable to remember anything or come up with words in conversation? The pt rated her memory/cognitive- communication to be an 8/10. Findings/Results Language Function Within functional limits Cognitive Function Within functional limits Findings While the pt scored average in the domains assessed in the CLQT, she explained that some of the tasks were challenging for her. During the Symbol Trails task, she completed the scored item incorrectly initially. She was able to self-correct by retracing her steps, but did not do so within the time limit. During the Generative naming task, pt expressed frustration at her inability to retrieve a higher number of words, stating ?this should be much easier for me.? While pt is not currently making errors with IADLs such as medication management or finance/household management, she is noticing changes to her communication that are a change from her baseline of only 1-2 years ago. Word-finding difficulty in conversation has impacted the pt?s communication with family and friends and has resulted in communication breakdowns and reduced her social communication. Recommend 1:[address] with the goal of providing therapeutic education and training in use of beneficial cognitive-communication compensatory strategies, specifically targeting word-finding for improved communication with family, friends, and members of the medical team to prevent communication breakdowns and increase ease of communication. MIX TECHNICIAN provided Multifactorial Memory Questionnaire for pt to complete and identify other potential areas to target as part of cognitive-communication treatment. Prognosis for improvement is good due to pt motivation and strong support from the pt's family. Plan for pt to participate in ST skilled services addressing cognitive-communication at a frequency of 1x/week for 4 -8 weeks. MIX TECHNICIAN provided education re: the role of the MIX TECHNICIAN in speech, language, and cognitive-communication therapy. Educated pt re: goals for therapy and facilitated discussion re: collaborative goals for treatment. Pt expressed understanding of education provided on this date. Prognosis Prognosis Good Based on Cognitive status,Duration of symptoms/severity,Other ( comment) Comment Pt motivation Plan of Care Speech-Language Yes Treatment Frequency 1x/week Duration 4-8 weeks Patient/Caregiver Described results of evaluation,Patient expressed Education understanding of evaluation,Patient expressed agreement with goals and treatment plans Short Term Goals 1. Patient will implement selected 1-2 compensatory strategies for word-finding (e.g., circumlocution) to repair communication breakdowns in daily conversations. 2. Patient will demonstrate understanding of education re: holistic lifestyle factors that are supported by research to have a positive impact on cognition (ex: sleep, exercise, diet, social engagement) via teach- back. 3. Patient will increase metacognitive self-awareness as measured by accurately reflecting on task performance after completion in 90% of opportunities in order to increase insight and optimize executive functioning skills. Nuclear Process Engineer Goals 1. Patient will improve self-perception of memory/ cognition from baseline of 10/30 following education and training in compensatory strategies for cognitive- communication, including word-finding.
--- NOTE | 2025-01-30 14:11 | ST.OPPOC ---
Physical, Occupational & Speech Therapy At [facility] Visit Care Team Role Provider Type Lavern Gramajo, Attending Provider Physician Family Provider Primary Care Provider Referring Provider Address: [facility] [place] [address], [address], [place], [address] Speech Pathology Plan of Care Plan of Care Dates 01/30/25-05/01/[address] Lavern Gramajo Patient History Diamante ?Jose Francisco Daly is a 69-year-old female, referred for a speech/language/cognition evaluation by Dr. Gramajo due to concerns regarding cognition and word-finding. Pt reports difficulty with word-finding, particularly during social situations, and with being ? scatter brained? during IADLs, such as household tasks. Onset date of about 1-2 years ago. Pt has experienced TIA symptoms in 2008 and a brain scan revealed white spots. Transient ischemic attack in 2007 per records. Pt denied other neurological history. PMHx includes uterine cancer, anxiety, depression, HTN, HLD, T2DM, nephrolithiasis, frequent/recurrent UTI, allergies, and asthma. Pt lives alone and is independent with ADLS and IADLs. Pt states her main goal for treatment is to ?have less difficulty coming up with words when I?m talking .? Short Term Goals 1. Patient will implement selected 1-2 compensatory strategies for word-finding (e.g., circumlocution) to repair communication breakdowns in daily conversations. 2. Patient will demonstrate understanding of education re: holistic lifestyle factors that are supported by research to have a positive impact on cognition (ex: sleep, exercise, diet, social engagement) via teach-back. 3. Patient will increase metacognitive self- awareness as measured by accurately reflecting on task performance after completion in 90% of opportunities in order to increase insight and optimize executive functioning skills. Solar Pool Heating Installer Goals 1. Patient will improve self-perception of memory/cognition from baseline of 10/30 following education and training in compensatory strategies for cognitive-communication, including word-finding. Comment: Electronically Signed by: MARC Valdivia 01/30/25 4231 If you are in agreement with this Plan of Care, please return a signed and dated copy. I have reviewed this Plan of Care and certify that the skilled therapy services above are required to meet the patient?s needs. Physician Signature Date Printed Name and Credentials Clinical Instructor Signature Printed Name and Credentials
--- NOTE | 2025-02-07 15:14 | ST.OPTN ---
Visit Care Team Role Provider Type Lavern Gramajo DO Attending Provider Physician Family Provider Primary Care Provider Referring Provider Address: [address] [place] [address], [address], [place], [address] BALLASTER Treatment Note BALLASTER Treatment Note Start: 01/30/25 13:43 Freq: Status: Active Protocol: Document 02/07/25 15:03 SS (Rec: 02/07/25 15:14 SS [email or web address]) Speech Pathology Treatment Note Session Time Visit Start Time 14:20 Visit Stop Time 15:00 Total Visit Minutes 40 Visit Information Visit Number 2 Plan of Care Dates 01/30/25-05/01/25 Insurance Medicare (KX modifier required after 19 visits) Information Setting Treatment Setting Outpatient Care Visit Type Note Type Treatment Note Next Note Type Next Note Type Treatment Note General Information Patient History Diamante Daly is a 69-year-old female, referred for a speech/language/cognition evaluation by Dr. Gramajo due to concerns regarding cognition and word- finding. Pt reports difficulty with word-finding, particularly during social situations, and with being ? scatter brained? during IADLs, such as household tasks. Onset date of about 1-2 years ago. Pt has experienced TIA symptoms in 2008 and a brain scan revealed white spots. Transient ischemic attack in 2007 per records. Pt denied other neurological history. PMHx includes uterine cancer, anxiety, depression, HTN, HLD, T2DM, nephrolithiasis, frequent/recurrent UTI, allergies, and asthma. Pt lives alone and is independent with ADLS and IADLs. Pt states her main goal for treatment is to ?have less difficulty coming up with words when I?m talking.? Subjective Identification Type Name Observations/Patient Pt arrived to the session on time. She was engaged and Presentation motivated throughout. Objective Short Term Goals 1. Patient will implement selected 1-2 compensatory strategies for word-finding (e.g., circumlocution) to repair communication breakdowns in daily conversations. 2. Patient will demonstrate understanding of education re: holistic lifestyle factors that are supported by research to have a positive impact on cognition (ex: sleep, exercise, diet, social engagement) via teach- back. 3. Patient will increase metacognitive self-awareness as measured by accurately reflecting on task performance after completion in 90% of opportunities in order to increase insight and optimize executive functioning skills. Mine Environmental Engineer Goals 1. Patient will improve self-perception of memory/ cognition from baseline of 10/30 following education and training in compensatory strategies for cognitive- communication, including word-finding. Treatment Activities Reviewed CLQT results and completed MMQ pt completed at home. Completed SLUMS per PCP request as it was requested by neurology. Education re: compensatory word -finding strategies and use of Semantic Feature Analysis. Education re: strategies for name recall. Provided handout for holistic lifestyle factors that impact cognition for pt to review at home. Assessment Patient Response to Excellent Treatment Rehab Potential Excellent Impairments Cognitive communication Identified Progress Towards Good Progress Goals Assessment of Improving Overall Progress Assessment of BALLASTER reviewed cognitive assessment results from the CLQT Improvement . Pt expressed understanding and stated she felt relieved she scored within normal limits, but continues to notice a change from baseline, particularly with name recall and word retrieval. BALLASTER completed SLUMS per PCP request. [facility] Mental Status (UMS) Examination was used to obtain information regarding the patient?s cognitive abilities. The SLUMS consists of ten questions that assess delayed recall, verbal fluency, comprehension, calculations, attention, working memory, and orientation. A scored is calculated from a possible 30 points. Scores fall in one of three ranges describing a patient?s level of impairment based upon level of education. Patients who have completed high school are expected to score slightly higher on this test than those who have not. For someone with a high school education, WNL is 27-30. The SLUMS was completed on this date. Subtest scores are as follows: Orientation: 3/3 Immediate Recall: 5/5 (not calculated in total score) Numeric Calculation: 3/3 Divergent Namin/3 (total of 18) Delayed Recall: 3/5 Attention/Registration with Digit Span: 2/2 Clock Drawing (Visuospatial & Executive Functionin/ 4 Geometric Figures: 2/2 Short Story (memory/recall): 10/28 With a college education, a total score of 28/30 falls within the WNL range. BALLASTER provided education re: compensatory strategies for name recall, including repetition ?rule of 3? (saying names at least 3 times during conversation), association (what does the name make you think of to create a mental image), and locating distinguishing features about the person. Demonstrated functional use of these strategies with an example of a person?s name pt had recently difficulty recalling. Recommended pt implement the strategies when having difficulty remembering names, which pt was agreeable to. BALLASTER provided education re: word-finding strategies to improve word retrieval, including describe it, state the topic/category, say connected words, say the first letter/sound, write, draw, gesture, and use visuals. Discussed importance of self-advocacy by telling communication partners about word-finding difficulty and asking them to be patient in order to allow for increased time and to reduce feelings of stress/anxiety . Semantic Feature Analysis (SFA) implemented to target anomia and use of circumlocution for improved word retrieval. The pt was provided with a visual graphic organizer with six categories (category/group, use, action, properties, location, and association) and was asked to generate words across the six categories for personally-relevant, functional words that pt recently had difficulty retrieving. Pt produced an average of x7 content words per word, increasing to 15+ words given semantic cueing. BALLASTER provided handouts and SFA visual aid for additional practice. Recommended pt place visual aid in central location and begin implementing principles in conversation. Pt was agreeable and expressed motivation to do so. Provided handout for holistic lifestyle factors that are known to impact cognition for pt to review at home. Pt expressed understanding. Pt was motivated to participate in the session and was receptive to education and recommendations provided. Plan on following up in next session re: recommendations made in this session. Continue at frequency of once a week given pt progress and report. Reviewed with Goals,Progress Being Made,Home Exercise Program Patient Patient/Caregiver Excellent Understanding Plan Amount of Therapy 1-2 Months Recommended Frequency of Once a Week Treatment Length of Session 30 Minutes Therapeutic Contents Client Education,Cognitive-Linguistic Training,Home Exercise Program Provided Patient/ Home Exercise Program,Plan of Care,Questions/Concerns Caregiver Instruction Therapy Continue with Current Program Recommendations
--- NOTE | 2025-02-20 14:40 | ST.OPDS ---
Visit Care Team Role Provider Type Lavern Gramajo DO Attending Provider Physician Family Provider Primary Care Provider Referring Provider Address: [address] [place] [address], [address], [place], [address] [employer] Treatment Note [employer] Treatment Note Start: 01/30/25 13:43 Freq: Status: Active Protocol: Document 02/20/25 14:28 SS (Rec: 02/20/25 14:40 SS DESKTOP) Speech Pathology Treatment Note Session Time Visit Start Time 11:25 Visit Stop Time 11:55 Total Visit Minutes 30 Visit Information Visit Number 3 Plan of Care Dates 01/30/25-05/01/25 Insurance Medicare (KX modifier required after 19 visits) Information Setting Treatment Setting Outpatient Care Visit Type Note Type Discharge Summary General Information Patient History Diamante Daly is a 69-year-old female, referred for a speech/language/cognition evaluation by Dr. Gramajo due to concerns regarding cognition and word- finding. Pt reports difficulty with word-finding, particularly during social situations, and with being ? scatter brained? during IADLs, such as household tasks. Onset date of about 1-2 years ago. Pt has experienced TIA symptoms in 2008 and a brain scan revealed white spots. Transient ischemic attack in 2007 per records. Pt denied other neurological history. PMHx includes uterine cancer, anxiety, depression, HTN, HLD, T2DM, nephrolithiasis, frequent/recurrent UTI, allergies, and asthma. Pt lives alone and is independent with ADLS and IADLs. Pt states her main goal for treatment is to ?have less difficulty coming up with words when I?m talking.? Subjective Identification Type Name Observations/Patient Pt arrived to the session on time. She was engaged and Presentation motivated throughout. Objective Short Term Goals 1. Patient will implement selected 1-2 compensatory strategies for word-finding (e.g., circumlocution) to repair communication breakdowns in daily conversations. 02/20/25: Goal met. 2. Patient will demonstrate understanding of education re: holistic lifestyle factors that are supported by research to have a positive impact on cognition (ex: sleep, exercise, diet, social engagement) via teach- back. 02/20/25: Goal met. 3. Patient will increase metacognitive self-awareness as measured by accurately reflecting on task performance after completion in 90% of opportunities in order to increase insight and optimize executive functioning skills. 02/20/25: Goal met. Jail Goals 1. Patient will improve self-perception of memory/ cognition from baseline of 8/10 following education and training in compensatory strategies for cognitive- communication, including word-finding. 02/20/25: Goal met. Pt rated self-perception as 8/10 again, but stated she has noticed improvement since implementing strategies. Treatment Activities [employer] reviewed education re: compensatory strategies for word-finding and holistic lifestyle factors. Provided education re: metacognitive self-awareness when reflecting on task performance after completion. Discharge completed today as pt expressed no further concerns and is satisfied with her current cognitive- communication function. Assessment Patient Response to Excellent Treatment Rehab Potential Excellent Impairments Cognitive communication Identified Progress Towards Good Progress,Appropriate for Discharge Goals Assessment of Improving Overall Progress Assessment of Facilitated discussion re: pt?s current concerns with Improvement cognitive-communication at home. Pt expressed she has been able to use circumlocution effectively with friends and family and has not had communication breakdowns. Pt expressed she has made more effort to use circumlocution when feeling stress or distracted in conversation and has found it helpful. She has also reviewed holistic lifestyle factors recommendations and would like to improve her sleep habits and increase her physical activity. She was able to identify several ways to do this in the next few months. [employer] provided education on strategies to improve the pt? s metacognitive self-awareness following completion of tasks as pt often notices increased effort/fatigue following. Education focused on encouraging the pt to pause after an activity to reflect on performance and identify what was helpful or challenging. [employer] recommended pt stop and reflect immediately following the activity, identify errors and what caused them, note which strategies or tools were effective, and rate effort, attention, or fatigue. Discussed how pt may integrate the Goal?Plan?Do?Review framework into daily routines. Pt stated she was motivated to use these strategies during future tasks. Pt has been seen for 2 speech therapy visits addressing cognitive-communication from the start of care. She has attended consistently at a frequency of once a week and has been motivated to complete HEP and follow through with [employer] recommendations. She has received education and training in word-finding strategies, holistic lifestyle factors, and strategies to improve metacognitive self-awareness. During the session on this date, pt reported that she has no further concerns related to cognitive-communication/speech therapy. Educated pt re: calling to schedule if she notices new onset of difficulty related to cognitive-communication in the future. Pt discharged on this date. Pt agreeable to plan and denied any further questions or concerns at the conclusion of the session. Reviewed with Goals,Progress Being Made,Home Exercise Program Patient Patient/Caregiver Excellent Understanding Plan Amount of Therapy No Further Therapy Recommended Frequency of No Further Therapy Treatment Therapeutic Contents Client Education,Cognitive-Linguistic Training,Home Exercise Program Provided Patient/ Home Exercise Program,Plan of Care,Questions/Concerns Caregiver Instruction Therapy Continue with Current Program,Discharge to Home Recommendations Exercise Program,Discharge from Speech Therapy
== END 2025-02-27 13:20 | disposition home or self-care (01) ==
LOC: SP 11:30
PROVIDERS: Family Provider Family Medicine; PCP Family Medicine; Referring Provider Family Medicine; Visit Provider Family Medicine
DX: G31.84 Mild cognitive impairment of uncertain or unknown etiology (principal)
CPT/HCPCS: 92507; 96125

== ENCOUNTER 2025-03-04 16:43 | Emergency (ER) | payer MEDICARE, OTHER, SELFPAY ==
[2025-03-04] VITALS (11 sets, daily range): BP systolic 169–223; BP diastolic 77–100; PULSE 54–60; RESP 18; TEMP 37.1; O2SAT 90–95; BMI 34.9
[2025-03-04] MEDS: ONDANSETRON 4 MG/2 ML INJ IV (17:19)
--- NOTE | 2025-03-04 17:30 | DI.CT.S_ITS ---
PROCEDURE: CT ABDOMEN PELVIS W CON INDICATIONS: left flank pain TECHNIQUE: After the administration of intravenous contrast, axial sections acquired from the lung bases to the pubic symphysis. Coronal and sagittal reformats were performed. For radiation dose reduction, the following was used: automated exposure control, adjustment of mA and/or kV according to patient size. COMPARISON: None. FINDINGS: Image quality: Diagnostic. Lower Chest: Bibasilar atelectasis. ABDOMEN: Liver: No solid mass. Gallbladder: No radiopaque gallstones or wall thickening. Biliary ducts: No biliary dilation. Pancreas: No ductal dilation. Spleen: Size is within normal limits. Adrenal Glands: No adrenal nodules. Kidneys and Ureters: Delayed left nephrogram. Moderate left proximal hydronephrosis secondary to a 6 mm stone in the left proximal ureter, Hounsfield density of 668) (series 2, image 62). The distal left ureter is decompressed. No right hydronephrosis. No perinephric abscess. Mild left perinephric stranding.. No solid mass. No complex renal cystic lesion which requires follow up. Stomach and Bowel: Normal colonic caliber, without significant wall thickening. Nonvisualized appendix Peritoneum: No abnormal intraperitoneal fluid. No free air. Ventral Wall: No significant ventral hernia. Abdominal Nodes: No retroperitoneal or mesenteric adenopathy by size criteria. Vessels: Aorta and inferior vena cava are normal in size. PELVIS: Pelvic Organs: Unremarkable. Bladder: No bladder wall thickening, accounting for underdistention. Pelvic Nodes: No enlarged lymph nodes. Miscellaneous: No inguinal hernias are seen. Bones: No aggressive osseous abnormality. IMPRESSION: Obstructive 6 mm stone in the left proximal ureter results in moderate left proximal hydroureteronephrosis and a delayed left nephrogram. Dictated by: Lauro May M.D. on 03/04/2025 at 17:37 Approved by: Lauro May M.D. on 03/04/2025 at 17:53
[2025-03-04] MEDS: KETOROLAC 30 MG/ML VIAL 15 MG IV (17:34)
[2025-03-04 17:51] LABS: Add Manual Diff / Slide Review NO; Hematocrit 39.3 % (36-46); Hemoglobin 13.4 g/dL (12.0-16.0); Lymphocytes Absolute Auto 1500 /uL (1100-4500); Mean Corpuscular HGB Conc 34.1 % (30-36); Mean Corpuscular Hemoglobin 30.5 PG (26-34); Mean Corpuscular Volume 89.4 fL (80-100); Platelet Count 268 X10^3/uL (150-400)
[2025-03-04 17:58] LABS: Lipase 73 U/L (23-300)
[2025-03-04 17:59] LABS: Alanine Aminotransferase 25 IU/L (<35); Albumin 4.5 g/dL (3.5-5.0); Albumin Globulin Ratio 1.5 (1.0-2.8); Alkaline Phosphatase 67 U/L (38-126); Blood Urea Nitrogen 17 mg/dL (7-17); Calcium 9.3 mg/dL (8.4-10.2); Carbon Dioxide 29 mmol/L (22-32); Chloride 100 mmol/L (98-107); Estimated Glomerular Filt Rate > 60 mL/min (>60); Globulin 3.1 g/dL (1.7-4.1); Glucose 179 mg/dL (70-99); HEMOLYSIS < 15 (0-50); Potassium 4.1 mmol/L (3.4-5.1); Sodium 138 mmol/L (137-145); Total Protein 7.6 g/dL (6.3-8.2)
[2025-03-04 18:13] LABS: Ictotest Urine Negative (Negative)
[2025-03-04 18:22] LABS: Culture Indicated Urine Specimen Cultured
--- NOTE | 2025-03-04 18:41 | ED_ITS ---
HPI - Back Pain/Injury General Chief Complaint: Back Pain/Injury Stated Complaint: poss KD stone, pain, vomiting, since Time Seen by Provider: 03/04/25 17:30 Source: patient History of Present Illness HPI Narrative: 69-year-old female with history of kidney stones without prior urology interventions, status post remote total hysterectomy/oophorectomy, complains of 3 days duration left-sided discomfort, initially toward her back, now today more toward her front and more intense than previous events. Some nausea with nonbloody emesis. Took Zofran which seemed to help her nausea symptoms. Still having a lot of pain. No cough or shortness of breath. Related Data Home Medications ?Medication ?Instructions ?Recorded ?Confirmed cetirizine 10 mg tablet (Zyrtec) 20 mg PO DAILY PRN 02/23/25 rosuvastatin 5 mg tablet 5 mg PO QWEEK 08/10/2402/23 fluticasone fur. 200 mcg-umeclid 1 inh inhalation JIMY Y 01/19/25 02/23/25 62.5 mcg-vilant 25 mcg inhalat.powder (Trelegy Ellipta) blood-glucose meter (FreeStyle #1 ea 02/14/25 02/14/25 Lite Meter kit) magnesium 250 mg tablet 250 mg PO DAILY 02/23/2507/15 Previous Rx's ?Medication ?Instructions ?Recorded Blood pressure cuff - OMRON upper #1 ea 02/17/22 arm cuff omega-3 fatty acids 1,000 mg 1,000 mg PO BID #180 caps 02/17/22 capsule ondansetron 4 mg disintegrating 4 mg PO Q8H PRN nausea and 05/12/24 tablet vomiting #15 tabs blood-glucose meter #1 ea 08/09/24 ezetimibe 10 mg tablet 10 mg PO DAILY #90 tabs 09/20 09/14 irbesartan 300 mg tablet 300 mg PO DAILY #90 tabs levalbuterol tartrate 45 2 inh inhalation Q6H PRN whe ezing/ 10/11/24 mcg/actuation aerosol inhaler shortness of breath #15 grams metformin 500 mg tablet,extended See Rx Instructions P O .COMPLEX 11/07/24 release 24 hr #360 tabs lancets 28 gauge (FreeStyle #100 ea 01/17/25 Lancets) metoprolol tartrate 50 mg tablet 100 mg (2 x 50 mg) PO BID #60 tabs 01/19/25 blood sugar diagnostic (Blood #200 ea 03/01/25 Glucose Test strips) cefdinir 300 mg capsule 300 mg PO BID 10 days #20 ca ps 03/04/25 tamsulosin 0.4 mg capsule 0.4 mg PO DAILY #14 caps tramadol 50 mg tablet 50 mg PO TID PRN pain #14 ta bs 03/04/25 Allergies Allergy/AdvReac Type Severity Reaction Status Date / Time amlodipine AdvReac Intermediate forgetfulln Verified 03/04/25 16:53 ess atorvastatin AdvReac Intermediate memory loss Verified 03/04/25 16:53 latex AdvReac Intermediate rash Verified 03/04/25 16:53 Opioids - Morphine Analogues AdvReac Hives Verified 03/04/25 16:53 Patient History Medical History (Updated 03/04/25 @ 22:11 by Jero Allison MD) Ureteral calculus History of nephrolithiasis Gross hematuria Breast mass, right Multiple allergies Environmental allergies Type 2 diabetes mellitus with hyperlipidemia History of uterine cancer Changes in vision Left knee pain URI (upper respiratory infection) Hyperlipidemia Vision disorder Plantar warts (~1963) Osteoarthritis (~2008) Seasonal allergies Post traumatic stress disorder (PTSD) (~1982) Anxiety Transient ischemic attack (~2007) Shoulder pain Fractures Foot pain Carpal tunnel syndrome Rubella (~1953) Measles (~1959) Chicken pox (~1961) Meniere's disease Vertigo (~1982) Tinnitus (~1996) Recurrent sinusitis History of recurrent ear infection (~1953) Hearing loss (~1996) Painful menstrual periods Ovarian cyst Irregular menstrual cycle Herpes (~1985) Abnormal Pap smear of cervix (~2015) History of urinary incontinence Kidney stones (~2008) Hepatitis B (~1974) Hemorrhoid Borderline diabetes (~2011) Hypertension (~1989) Uterine cancer (~2015) Surgical History Hx of tubal ligation Hx of breast biopsy Anesthesia History of hysterectomy (~2015) History of section History of appendectomy (~1967) History of tonsillectomy (~1969) Family History Father History of heart disease Hyperlipidemia Hypertension Stroke Coronary artery disease Diabetes mellitus Evaluation of hearing impairment Mother Diabetes mellitus History of heart disease Hypertension Hyperlipidemia Stroke Coronary artery disease Brother History of heart disease Hyperlipidemia Hypertension Coronary artery disease Kidney stones Brother Pacemaker Bipolar disorder History of heart disease Hyperlipidemia Hypertension Mental health problem Grandfather Stroke Grandmother Stroke Cancer Grandfather Stroke Grandmother History of heart disease Son Migraines Social History marital status: number of children: 3 alcohol intake: current eating out: rarely or never Type(s) of exercise: walking, aerobic, advised to exercise at least 150 min/week (moderate intensity aerobic), advised to perform resistance training at least 2x/week and additional frequency: 1-2 times per week duration: 45-60 minutes/day alcohol intake frequency: holidays/special occasions only Exam Narrative Exam Narrative: GENERAL: Well-developed patient, in mild distress. HEAD: Atraumatic. Normocephalic. EYES: Pupils equal round and reactive. Extraocular motions intact. No scleral icterus. No injection or drainage. ENT: Nose without bleeding, purulent drainage. Throat without erythema, tonsillar hypertrophy or exudate. Airway patent. NECK: Trachea midline. Non tender CARDIOVASCULAR: Regular rate and rhythm without murmurs, gallops, or rubs. RESPIRATORY: Clear to auscultation. Breath sounds equal bilaterally. No wheezes, rales, or rhonchi. GASTROINTESTINAL: Abdomen soft, non-tender, nondistended. EXTREMITIES: No edema or joint tenderness. BACK: Nontender without deformity or crepitance. No flank tenderness. NEURO: AOx3. Motor functions grossly nonfocal. SKIN: No rash or erythema of visible areas Initial Vital Signs Initial Vital Signs: Vital Signs Temperature 98.7 F 03/04/25 16:54 Pulse Rate 59 L 03/04/25 16:54 Respiratory Rate 18 03/04/25 16:54 Blood Pressure 223/100 H 03/04/25 16:54 Pulse Oximetry 95 03/04/25 16:54 Oxygen Delivery Method Room Air 03/04/25 16:54 Course Orders Ordered: Discontinued Medications Hydrocodone Bitart/Acetaminophen (Hydrocodone/Acet 5/325 Prepack) 1 bottle MISC DIRECTED ONE Stop: 03/04/25 22:21 Last Admin: 03/04/25 22:38 Dose: Not Given Documented By: ANICETO Ceftriaxone Sodium 1,000 mg/ (Sodium Chloride) 100 mls @ 200 mls/hr IV NOW ONE Stop: 03/04/25 18:50 Last Infusion: 03/04/25 20:35 Dose: Infused Documented By: Admin: 03/04/25 19:11 Dose: 200 mls/hr Documented By: JEREMY Sodium Chloride (Normal Saline 0.9%) 500 mls @ 1,000 mls/hr IV BOLUS ONE Stop: 03/04/25 21:39 Last Admin: 03/04/25 21:11 Dose: Not Given Documented By: JEREMY Sodium Chloride (Normal Saline 0.9%) 1,000 mls @ 1,000 mls/hr IV BOLUS ONE Stop: 03/04/25 22:10 Last Infusion: 03/04/25 22:25 Dose: Infused Documented By: Admin: 03/04/25 21:12 Dose: 1,000 mls/hr Documented By: JEREMY Ketorolac Tromethamine (Ketorolac 30 Mg/Ml Vial) 15 mg IV NOW ONE Stop: 03/04/25 17:31 Last Admin: 03/04/25 17:34 Dose: 15 mg Documented By: ANICETO Ondansetron HCl (Ondansetron 4 Mg/2 Ml Inj) 4 mg IV NOW ONE Stop: 03/04/25 17:17 Last Admin: 03/04/25 17:19 Dose: 4 mg Documented By: ANICETO Ondansetron HCl (Ondansetron 4 Mg Odt Prepack) 1 bottle MISC DIRECTED ONE Stop: 03/04/25 22:21 Last Admin: 03/04/25 22:48 Dose: 1 bottle Documented By: ANICETO Tamsulosin HCl (Tamsulosin 0.4 Mg Capsule) 0.4 mg PO NOW ONE Stop: 03/04/25 22:23 Last Admin: 03/04/25 22:48 Dose: 0.4 mg Documented By: ANICETO Tramadol HCl (Tramadol 50 Mg Prepack) 1 bottle MISC DIRECTED ONE Stop: 03/04/25 22:38 Last Admin: 03/04/25 22:48 Dose: 1 bottle Documented By: ANICETO Tramadol HCl (Tramadol 50 Mg Prepack) 1 bottle MISC DIRECTED ONE Stop: 03/04/25 22:42 Tramadol HCl (Tramadol 50 Mg Tablet) 50 mg PO NOW ONE Stop: 03/04/25 22:42 Vital Signs Vital signs: Vital Signs - 8 hr 03/04/25 20:00 03/04/25 20:01 03/04/25 20:01 Pulse Rate 54 L 55 L Blood Pressure 169/77 H Pulse Oximetry 90 L 90 L 03/04/25 20:30 03/04/25 20:30 03/04/25 21:00 Pulse Rate 57 L 56 L Blood Pressure 179/84 H Pulse Oximetry 92 94 03/04/25 21:10 03/04/25 21:10 03/04/25 21:30 Pulse Rate 55 L 59 L Blood Pressure 191/91 H Pulse Oximetry 95 94 03/04/25 21:30 03/04/25 22:00 03/04/25 22:00 Pulse Rate 60 Blood Pressure 190/83 H 199/84 H Pulse Oximetry 94 MDM - Back Pain/Injury Lab Data Attestation: I reviewed the patient's lab results. Lab results narrative: White blood cell count 79161, hemoglobin 13.4, platelets adequate. Glucose 179. Renal function, serum CO2, electrolytes normal. Liver functions and lipase normal. White blood cell count few white cells, few bacteria only, urine cultured. 03/04/25 17:10 03/04/25 17:10 Labs: Lab Results 03/04/25 03/04/25 Range/Units 17:10 17:14 WBC 10.8 (4.5-11.0) X10^3/uL RBC 4.40 (4.0-5.2) X10^6/uL Hgb 13.4 (12.0-16.0) g/dL Hct 39.3 (36-46) % MCV 89.4 (80-100) fL MCH 30.5 (26-34) PG MCHC 34.1 (30-36) % RDW 13.8 (11.6-14.8) % Plt Count 268 (150-400) X10^3/uL Neut % (Auto) 75.8 H (50-75) % Lymph % (Auto) 13.6 L (25-40) % Armstrong % (Auto) 8.4 (3-14) % Eos % (Auto) 1.8 L (2-4) % Baso % (Auto) 0.4 (0-2) % Neut # (Auto) 8200 H (3586-8854) /uL Lymph # (Auto) 1500 (0111-3305) /uL Armstrong # (Auto) 900 (0-900) /uL Eos # (Auto) 200 (0-450) /uL Baso # (Auto) 0 (0-100) /uL Sodium 138 (137-145) mmol/L Potassium 4.1 (3.4-5.1) mmol/L Chloride 100 (98-107) mmol/L Carbon Dioxide 29 (22-32) mmol/L BUN 17 (7-17) mg/dL Creatinine 0.94 (0.52-1.04) mg/dL Estimated GFR > 60 (>60) mL/min BUN/Creatinine Ratio 18.1 (6-22) Glucose 179 H (70-99) mg/dL Calcium 9.3 (8.4-10.2) mg/dL Total Bilirubin 0.4 (0.2-1.3) mg/dL AST 25 (14-36) IU/L ALT 25 (<35) IU/L Alkaline Phosphatase 67 (38-126) U/L Total Protein 7.6 (6.3-8.2) g/dL Albumin 4.5 (3.5-5.0) g/dL Globulin 3.1 (1.7-4.1) g/dL Albumin/Globulin Ratio 1.5 (1.0-2.8) Lipase 73 (23-300) U/L Ur Bilirubin Confirm Negative (Negative) Urine RBC None seen (0-5/HPF) Urine WBC 5-10/hpf H (0-5/HPF) Ur Squamous Epith Cells 1-5 /hpf (0-5/HPF) Urine Bacteria Few (2-10) H (None) Ur Culture Indicated? Specimen cultured Vol Urine Centrifuged 10ml (spun) Urine Dip Bedside Urine Glucose Negative Bedside Urine Bilirubin + 1 Bedside Urine Ketone - Negative Urine Specific [place] 1.03 Bedside Urine Occult Blood + Bedside Urine pH 5.5 Bedside Urine Protein +/- 15 Bedside Urine Urobilinogen - Negative Bedside Urine Nitrite - Negative Bedside Urine Leukocytes - Negative Esterase Imaging Data CT scan - abdomen/pelvis: Radiologist's Impression: Allergy/Adv: amlodipine, atorvastatin, latex, Opioids - Morphine Analogues [address] [address] [address] Scan Report Signed Patient: Diamante Daly MR#: [id number] : 1955 Acct:[id number] Age/Sex: 69 / F Date of Service: 03/04/25 Loc: ED Accession Number: [id number] Procedure: CT abdomen pelvis w con Ordering Provider: Tabitha Ayers D.O. PROCEDURE: CT ABDOMEN PELVIS W CON INDICATIONS: left flank pain TECHNIQUE: After the administration of intravenous contrast, axial sections acquired from the lung bases to the pubic symphysis. Coronal and sagittal reformats were performed. For radiation dose reduction, the following was used: automated exposure control, adjustment of mA and/or kV according to patient size. COMPARISON: None. FINDINGS: Image quality: Diagnostic. Lower Chest: Bibasilar atelectasis. ABDOMEN: Liver: No solid mass. Gallbladder: No radiopaque gallstones or wall thickening. Biliary ducts: No biliary dilation. Pancreas: No ductal dilation. Spleen: Size is within normal limits. Adrenal Glands: No adrenal nodules. Kidneys and Ureters: Delayed left nephrogram. Moderate left proximal hydronephrosis secondary to a 6 mm stone in the left proximal ureter, Hounsfield density of 668) (series 2, image 62). The distal left ureter is decompressed. No right hydronephrosis. No perinephric abscess. Mild left perinephric stranding.. No solid mass. No complex renal cystic lesion which requires follow up. Stomach and Bowel: Normal colonic caliber, without significant wall thickening. Nonvisualized appendix Peritoneum: No abnormal intraperitoneal fluid. No free air. Ventral Wall: No significant ventral hernia. Abdominal Nodes: No retroperitoneal or mesenteric adenopathy by size criteria. Vessels: Aorta and inferior vena cava are normal in size. PELVIS: Pelvic Organs: Unremarkable. Bladder: No bladder wall thickening, accounting for underdistention. Pelvic Nodes: No enlarged lymph nodes. Miscellaneous: No inguinal hernias are seen. Bones: No aggressive osseous abnormality. IMPRESSION: Obstructive 6 mm stone in the left proximal ureter results in moderate left proximal hydroureteronephrosis and a delayed left nephrogram. Dictated by: Lauro May M.D. on 03/04/2025 at 17:37 Approved by: Lauro May M.D. on 03/04/2025 at 17:53 [facility] Narrative Medical decision making narrative: 69-year-old female with history of kidney stones, prior total hysterectomy/oophorectomy, left flank pain then left anterior discomfort for the last 3 days, hurts a lot worse than her previous kidney stone pain. No history of colitis diverticulitis. Afebrile, sirs screen negative. No significant tenderness on anterior abdominal exam. Was given IV Toradol after triage, pain seems to be improved, nausea resolved after Zofran taken prior Lab data: White blood cell count 21528, hemoglobin 13.4, platelets adequate. Glucose 179. Renal function, serum CO2, electrolytes normal. Liver functions and lipase normal. White blood cell count few white cells, few bacteria only, urine cultured. IV ceftriaxone for UTI coverage. Imaging results pending. CT abdomen and pelvis. IMPRESSION: Obstructive 6 mm stone in the left proximal ureter results in moderate left proximal hydroureteronephrosis and a delayed left nephrogram. See radiology report. 2215, case discussed with [facility] urology Dr. Rodríguez, can cover with antibiotics in case of urine infection but not obvious, no fever, no elevated WBC, older age and diabetes noted comorbidities, trial of antibiotics and close follow up with local urologist seems reasonable. Return precautions. Discharge Plan Departure Patient Disposition: Home Clinical Impression: Left ureteral stone Activity Restrictions/Additional Instructions: Left-sided flank pain, history of kidney stones, no fevers on triage, some nausea and vomiting. Urinalysis with some blood, some bacteria, no inflammatory cells, urine culture was requested, IV ceftriaxone given in case of urine infection. CT scanning of the abdomen and pelvis shows 6 mm proximal stone in the left ureter. There is no mention of any abscess. Case was discussed with on-call Urology at [facility], who felt that you can be seen in close follow up with local urologists early this week. We will send prescription for further antibiotic to here requested pharmacy to cover for urine infection just in case. Return prior if any change worsening symptoms or concerns prior. Prescriptions: New cefdinir 300 mg capsule 300 mg PO BID 10 Days Qty: 20 0RF tramadol 50 mg tablet 50 mg PO TID PRN (Reason: pain) Qty: 14 0RF tamsulosin 0.4 mg capsule 0.4 mg PO DAILY Qty: 14 0RF No Action (DME) blood-glucose meter Misc See Rx Instructions .ROUTE .MEDSUPPLY Qty: 1 0RF Rx Instructions: Use to test blood glucose BID irbesartan 300 mg tablet 300 mg PO DAILY Qty: 90 1RF ezetimibe 10 mg tablet 10 mg PO DAILY Qty: 90 1RF Rx Instructions: Take 1 tab daily levalbuterol tartrate 45 mcg/actuation HFA aerosol inhaler 2 inh inhalation Q6H PRN (Reason: wheezing/ shortness of breath) Qty: 15 0RF metformin 500 mg tablet extended release 24 hr See Rx Instructions PO .COMPLEX Qty: 360 3RF Rx Instructions: Take (2) 500mg tabs am and pm with food (DME) lancets [FreeStyle Lancets] 28 gauge misc See Rx Instructions .ROUTE .COMPLEX Qty: 100 3RF Dose Instruction: USE TO TEST BLOOD GLUCOSE TWO TIMES DAILY Rx Instructions: USE TO TEST BLOOD GLUCOSE TWO TIMES DAILY; does not use insulin (DME) Blood Glucose Test Strip See Rx Instructions .ROUTE .MEDSUPPLY Qty: 200 3RF Rx Instructions: Use to test blood glucose twice daily rosuvastatin 5 mg tablet 5 mg PO QWEEK Trelegy Ellipta 200-62.5-25 mcg blister with device 1 inh inhalation DAILY metoprolol tartrate 50 mg tablet 100 mg PO BID Qty: 60 3RF (DME) blood-glucose meter [FreeStyle Lite Meter] Kit See Rx Instructions .ROUTE BID Qty: 1 Rx Instructions: As directed cetirizine [Zyrtec] 10 mg tablet 20 mg PO DAILY PRN omega-3 fatty acids 1,000 mg capsule 1,000 mg PO BID Qty: 180 3RF (DME) Blood pressure cuff - OMRON upper arm cuff See Rx Instructions .Route .MEDSUPPLY Qty: 1 0RF Rx Instructions: Take blood pressure daily goal is under 130/80 consistently as a diabetic magnesium 250 mg tablet 250 mg PO DAILY ondansetron 4 mg tablet,disintegrating 4 mg PO Q8H PRN (Reason: nausea and vomiting) Qty: 15 0RF Referrals: Diaz Conroy DO [Physician, Urology] Lavern Gramajo DO [Primary Care Provider, Medical] Stand Alone Forms: Patient Portal/API
[2025-03-04] MEDS: SODIUM CHLORIDE 0.9% 1,000 ML 1000 ML IV (21:12)
[2025-03-04] MEDS: ONDANSETRON 4 MG ODT PREPACK 1 BOTTLE MISC (22:48)
[2025-03-04] MEDS: TAMSULOSIN 0.4 MG CAPSULE PO (22:48)
--- NOTE | 2025-03-04 22:57 | PC.NURSE ---
Patient prefers to take home blood pressure medication when she gets home versus taking it here and being monitored. Provider okay'd.
== END 2025-03-04 22:58 | disposition home or self-care (01) ==
PROVIDERS: Emergency Medicine; Emergency Provider Emergency Medicine; Family Provider Family Medicine; PCP Family Medicine
DX: N20.1 Calculus of ureter (principal); R10.A2 Flank pain, left side; Z87.442 Personal history of urinary calculi
CPT/HCPCS: 36415; 74177; 80053; 81003; 81015; 83690; 85025; 87086; 96365; 96375; 99284; J0696; J1885; J2405; J7030; J7050; Q9967